=== PATIENT | male | born 1960 | race Caucasian/White ===

== ENCOUNTER 2016-12-09 07:55 | Day surgery (SDC) | payer BC ==
[2016-12-08 10:33] VITALS: BMI 25.1
[~2016-12-09 07:55] MED LIST: DEXAMETHASONE SOD PHOSPHATE 10 MG/ML 1 ML VIAL IV ONE; HEPARIN SODIUM,PORCINE 5,000 UNIT/ML 1 ML VIAL SQ ONE; HYDROmorphone 1 MG/ML 1 ML SYRINGE IVP PRN; LACTATED RINGERS 1,000 ML IV SCH; MIDAZOLAM 2 MG/2 ML VIAL IV PRN; ONDANSETRON 4 MG/2 ML VIAL IVP ONE; Pre Op ABX Message 1 EACH MISC MISCELLANE ONE; SCOPOLAMINE 1.5MG/72HR PATCH TRANSDERM ONE
[2016-12-09] MEDS ORDERED: ceFAZolin 2 GM in SODIUM CHLORIDE 0.9% 100 ML IVPB ONE (09:16)
--- NOTE | 2016-12-09 09:16 | P.GSHP ---
History of Present Illness H&P Date: 12/09/16 Chief Complaint: Rectal mass 56 yrs old male presents with rectal pain and mass. Last colonoscopy 2014- normal. No h/o chron's - Constitutional Comment: All negative Past Medical History Past Medical History: GERD/Reflux, Hyperlipidemia, Hypertension Additional Past Medical History / Comment(s): rectal skin tag History of Any Multi-Drug Resistant Organisms: None Reported Past Surgical History: Heart Catheterization With Stent Additional Past Surgical History / Comment(s): heart stents x 2 Past Anesthesia/Blood Transfusion Reactions: Previous Problems w/ Anesthesia Additional Past Anesthesia/Blood Transfusion Reaction / Comment(s): "hard time coming out of it", no hx blood transfusion Date of Last Stent Placement:: 1999 Past Psychological History: No Psychological Hx Reported Smoking Status: Current every day smoker Past Alcohol Use History: Daily Additional Past Alcohol Use History / Comment(s): started smoking approx , 1 1/2ppd,drinks 2-3 12ou cans per beer per day Past Drug Use History: None Reported - Past Family History Mother Family Medical History: No Reported History Father Family Medical History: Cancer Additional Family Medical History / Comment(s): prostate Medications and Allergies Home Medications Medication Instructions Recorded Confirmed Type Aspirin [Adult Low Dose Aspirin EC] 81 mg PO DAILY 09/02/15 12/09/16 History Labetalol [Trandate] 200 mg PO BID 09/02/15 12/09/16 History Simvastatin [Zocor] 40 mg PO HS 09/02/15 12/09/16 History Allergies Allergy/AdvReac Type Severity Reaction Status Date / Time moxifloxacin HCl Allergy Anaphylaxis Verified 12/09/16 08:11 [From Avelox] Surgical - Exam Vital Signs Temp Pulse Resp BP Pulse Ox 97.8 F 62 18 153/80 99 12/09/16 08:14 12/09/16 08:14 12/09/16 08:14 12/09/16 08:14 12/09/16 08:14 General: Patient is alert and oriented to time, place and person and cooperative with exam. He is not in acute distress. HEENT: No pallor, no icterus, no thyroid enlargement, no cervical lymphadenopathy. Chest: Bilateral equal breath sounds present. No wheezes, no crackles. Cardiovascular: Regular rate and rhythm. Abdomen: Soft, nontender, nondistended. Neurologic: Cranial nerves II-XII intact. Strength upper and lower extremities 5/5. No focal neurologic deficits. Gait is normal. Assessment and Plan (1) Rectal mass Status: Acute Plan: 1. Exam under anesthesia 2. Excision of rectal mass
[2016-12-09] MEDS ORDERED: PROPOFOL 10 MG/ML 20 ML VIAL IV ONE (09:21)
[2016-12-09] MEDS ORDERED: GLYCOPYRROLATE 0.2 MG/ML 2 ML VIAL ONE (09:21)
[2016-12-09] MEDS ORDERED: ROCURONIUM BROMIDE 10 MG/ML 10 ML VIAL IV ONE (09:21)
[2016-12-09] MEDS ORDERED: fentaNYL (PF) 50 MCG/ML 2 ML AMP ONE (09:21)
[2016-12-09] MEDS ORDERED: SUCCINYLCHOLINE CHLORIDE 100 MG/5 ML SYR IV ONE (09:21)
[2016-12-09] MEDS ORDERED: MIDAZOLAM 2 MG/2 ML VIAL ONE (09:21)
[2016-12-09] MEDS ORDERED: LIDOCAINE 1% INJ 10MG/ML (20 ML MDV) ONE (09:21)
[2016-12-09] MEDS ORDERED: NEOSTIGMINE 1 MG/ML 10 ML VIAL ONE (09:21)
[2016-12-09] MEDS: BUPIVACAINE LIPOSOME/PF 1.3% 20 ML, SODIUM CHLORIDE 0.9% 10 ML MISCELLANE ONE ×4 (09:59→10:06)
[2016-12-09] MEDS ORDERED: metroNIDAZOLE-NS PMX 500 MG in SALINE 1 100ML.BAG IVPB STA (10:38)
[2016-12-09 10:42] VITALS: TEMP 96.8
--- NOTE | 2016-12-09 10:57 | P.OP ---
Date of Procedure: 12/09/16 Preoperative Diagnosis: Rectal mass Anal skin tag Postoperative Diagnosis: Internal hemorrhoids Anal polyp Procedure(s) Performed: Exam under anesthesia Excision of anal polyp Internal hemorrhoidectomy 2 pedicle Anesthesia: JOYCE, local Surgeon: Jerrica Mulligan Condition: stable Disposition: PACU Indications for Procedure: 56 years old male presenting with a palpable mass per rectum. He had colonoscopy in 2015. No history of weight loss or loss of appetite. Occasional rectal bleeding. Informed consent obtained and patient elected to undergo exam under anesthesia and all indicated procedures. Operative Findings: Anal polyp located at 3:00. 2 internal hemorrhoid pedicles at 2 and 6 o'clock position where removed Description of Procedure: The patient was brought to the operating room and placed in supine position. General anesthesia was given as per anesthesia team. Patient was placed in prone jackknife position. The buttock cheeks were taped to expose the area. Betadine was used to prep the skin followed by application of sterile drapes. A timeout was performed to verify correct patient and correct procedure A 2 x 1 cm polyp identified at 3 o' clock which appeared to be pedunculated and arising from the anal margin which was excised after clamping the base with a hemostat. 2 size internal hemorrhoids noted at 2 and 6 o'clock position. The base of the hemorrhoidal pedicle was grasped with a hemostat and sutured using 3 -0 Vicryl. Similarly 6 o'clock hemorrhoidal pedicle was also excised and Bovie electrocautery. 30 mL of external was injected to create a local block. Patient tolerated the procedure well and was taken to post anesthesia care unit in stable condition Final Pathologic Diagnosis ANORECTAL MUCOSA: HEMORRHOIDS WITH ORGANIZING THROMBOSIS AND ANAL TAG/ FIBROEPITHELIAL POLYP. Notes It is noted that the fibroepithelial polyp demonstrates some increased basaloid proliferation and enlargement of surface epithelial cells. While the features may be reactive, the possibility of a condyloma or viral associated change cannot be completely excluded.
[2016-12-09 11:57] VITALS: RESP 16
[2016-12-09 12:15] VITALS: BP 138/76; PULSE 67
== END 2016-12-09 12:59 | disposition home or self-care (01) ==
LOC: OR 07:55
PROVIDERS: ATTEND Surgery
DX: K64.8 Other hemorrhoids (principal); K62.0 Anal polyp; K64.4 Residual hemorrhoidal skin tags; E78.00 Pure hypercholesterolemia, unspecified; I10 Essential (primary) hypertension; M94.0 Chondrocostal junction syndrome [Tietze]; N52.9 Male erectile dysfunction, unspecified; I25.10 Atherosclerotic heart disease of native coronary artery without angina pectoris; Z95.5 Presence of coronary angioplasty implant and graft; F17.200 Nicotine dependence, unspecified, uncomplicated; Z79.82 Long term (current) use of aspirin; Z79.899 Other long term (current) drug therapy; Z88.1 Allergy status to other antibiotic agents
CPT/HCPCS: 46922; 46999; J2250; J1644; J1100; J2710; J0690; J2405; J2001; J3010; J0330; J2704; 88304

== ENCOUNTER → 2017-09-28 | Outpatient (CLI) | payer BC ==
[~2017-09-28] MED LIST changes: -DEXAMETHASONE SOD PHOSPHATE 10 MG/ML 1 ML VIAL IV ONE; -HEPARIN SODIUM,PORCINE 5,000 UNIT/ML 1 ML VIAL SQ ONE; -HYDROmorphone 1 MG/ML 1 ML SYRINGE IVP PRN; -LACTATED RINGERS 1,000 ML IV SCH; -MIDAZOLAM 2 MG/2 ML VIAL IV PRN; -ONDANSETRON 4 MG/2 ML VIAL IVP ONE; -Pre Op ABX Message 1 EACH MISC MISCELLANE ONE; +REGADENOSON 0.4 MG/5 ML SYRINGE IV ONE; -SCOPOLAMINE 1.5MG/72HR PATCH TRANSDERM ONE
--- NOTE | 2017-09-28 12:29 | P.STRESS ---
- Stress Test Note Stress Test Results/Findings: Exam Performed: NM stress lexiscan cardiolite Exam Date: 09/28/17 Reason for Exam: Family hx. Height: 5 ft 10 in Weight: 74.843 kg Protocol: Sarah Scan Stage: na Duration of Exercise: na Resting Heart Rate: 69 Resting Blood Pressure: 135/72 Maximum Achieved Heart Rate: 86 Maximum Achieved Blood Pressure: 161/75 85% PMHR: na 100% PMHR: na METS: na Technologist Comment: Stress Test Results/Findings: Baseline EKG showed sinus rhythm with poor when necessary for constipation. EKGs taken during and after the Lexiscan infusion did not reveal any changes to suggest ischemia. Final impression: #1. Negative Lexiscan stress test. #2. Report on the telemetry images to be given by the radiologist
--- NOTE | 2017-09-28 12:41 | NM ---
EXAMINATION TYPE: NM stress lexiscan cardiolite DATE OF EXAM: 09/28/2017 COMPARISON: Previous exam 07/18/2012 HISTORY: Atypical chest pain TECHNIQUE: After the intravenous administration of 11 mCi Tc 99m Sestamibi - Cardiolite resting SPEC T images acquired 65 minutes post injection. The patient received 0.4mg Lexiscan, 27 mCi Tc 99m Sestamibi - Stress images obtained 50 minutes post injection FINDINGS: Review of stress and rest SPECT images demonstrates no distinct perfusion abnormality. Gated analysi s shows normal wall motion with an estimated left ventricular ejection fraction of 56%. IMPRESSION: No scintigraphic evidence for reversible ischemia.
== END | disposition home or self-care (01) ==
LOC: RADNMMAIN 07:50
PROVIDERS: ATTEND Family Medicine
DX: R07.89 Other chest pain (principal)
CPT/HCPCS: 93017; 78452; A9500; J2785

== ENCOUNTER 2018-07-03 19:31 | Emergency (ER) | payer BC ==
--- NOTE | 2018-07-03 21:08 | ED ---
General Adult HPI - General Chief complaint: Recheck/Abnormal Lab/Rx Stated complaint: post op bleeding/groin Time Seen by Provider: 07/03/18 19:46 Source: patient, family, RN notes reviewed, old records reviewed Mode of arrival: wheelchair Limitations: no limitations - History of Present Illness Initial comments: This is a 57-year-old male to the ER for evaluation of right groin bleeding bleeding from postop site. Patient had right groin catheterization to evaluate patency in [place] arteries and lower extremities are today, this procedure; hospital. No intervention was done. Patient states she was discharged home after prolonged stay, when he got home he developed bleeding from the site. Patient does not feel lightheaded dizzy or weak. He is currently on Plavix. Patient denies any foot pain or toe pain. - Related Data Home Medications Medication Instructions Recorded Confirmed Aspirin [Adult Low Dose Aspirin EC] 81 mg PO DAILY 09/02/15 07/03/18 Labetalol [Trandate] 200 mg PO BID 09/02/15 07/03/18 Simvastatin [Zocor] 40 mg PO HS 09/02/15 07/03/18 Clopidogrel Bisulfate [Plavix] 75 mg PO DAILY 07/03/18 07/03/18 traZODone HCL 150 mg PO HS 07/03/18 07/03/18 Allergies Allergy/AdvReac Type Severity Reaction Status Date / Time moxifloxacin HCl Allergy Anaphylaxis Verified 07/03/18 20:14 [From Avelox] Review of Systems ROS Statement: Those systems with pertinent positive or pertinent negative responses have been documented in the HPI. ROS Other: All systems not noted in ROS Statement are negative. Past Medical History Past Medical History: GERD/Reflux, Hyperlipidemia, Hypertension Additional Past Medical History / Comment(s): rectal skin tag History of Any Multi-Drug Resistant Organisms: None Reported Past Surgical History: Heart Catheterization With Stent Additional Past Surgical History / Comment(s): heart stents x 2 Past Anesthesia/Blood Transfusion Reactions: Previous Problems w/ Anesthesia Additional Past Anesthesia/Blood Transfusion Reaction / Comment(s): "hard time coming out of it", no hx blood transfusion Date of Last Stent Placement:: 1999 Past Psychological History: No Psychological Hx Reported Smoking Status: Current every day smoker Past Alcohol Use History: Daily Past Drug Use History: None Reported - Past Family History Mother Family Medical History: No Reported History Father Family Medical History: Cancer Additional Family Medical History / Comment(s): prostate General Exam - General Exam Comments Initial Comments: Patient does have positive cells. Posterior tibialis right lower extremity with no coldness noted, good capillary refill Limitations: no limitations General appearance: alert, in no apparent distress Head exam: Present: atraumatic, normocephalic, normal inspection Eye exam: Present: normal appearance, PERRL, EOMI. Absent: scleral icterus, conjunctival injection, periorbital swelling ENT exam: Present: normal exam, mucous membranes moist Neck exam: Present: normal inspection. Absent: tenderness, meningismus, lymphadenopathy Respiratory exam: Present: normal lung sounds bilaterally. Absent: respiratory distress, wheezes, rales, rhonchi, stridor Cardiovascular Exam: Present: regular rate, normal rhythm, normal heart sounds. Absent: systolic murmur, diastolic murmur, rubs, gallop, clicks GI/Abdominal exam: Present: soft, normal bowel sounds. Absent: distended, tenderness, guarding, rebound, rigid Extremities exam: Present: normal inspection, full ROM, normal capillary refill. Absent: tenderness, pedal edema, joint swelling, calf tenderness Back exam: Present: normal inspection Neurological exam: Present: alert, oriented X3, CN II-XII intact Psychiatric exam: Present: normal affect, normal mood Skin exam: Present: warm, dry, intact, normal color. Absent: rash Course Vital Signs 07/03/18 19:39 Temperature 98.8 F Pulse Rate 83 Respiratory 18 Rate Blood Pressure 185/73 O2 Sat by Pulse 97 Oximetry - Reevaluation(s) Reevaluation #1: 07/03/18 21:06 Site and bandage are improved, patient has no active bleeding currently Reevaluation #2: 07/03/18 21:06 Patient placed under FemoStop times one hour Reevaluation #3: 07/03/18 21:07 Site again reevaluated, no bleeding noted Medical Decision Making - Medical Decision Making 57 male postop bleeding, patient remains without bleeding can be discharged home - Radiology Data Radiology results: image reviewed Disposition Clinical Impression: Post-op bleeding Disposition: HOME SELF-CARE Condition: Good Instructions: Postoperative Bleeding (ED) Is patient prescribed a controlled substance at d/c from ED?: No Referrals: Ildefonso Gilman MD [Primary Care Provider] - 1-2 days
[2018-07-03 21:43] VITALS: BP 147/71; PULSE 66; RESP 17; TEMP 98.7
== END 2018-07-03 21:50 | disposition home or self-care (01) ==
LOC: EC 19:31
DX: I97.610 Postprocedural hemorrhage of a circulatory system organ or structure following a cardiac catheterization (principal); E78.5 Hyperlipidemia, unspecified; I10 Essential (primary) hypertension; F17.200 Nicotine dependence, unspecified, uncomplicated; Z79.02 Long term (current) use of antithrombotics/antiplatelets; Z79.82 Long term (current) use of aspirin; Z79.899 Other long term (current) drug therapy; Z88.1 Allergy status to other antibiotic agents; Z95.5 Presence of coronary angioplasty implant and graft
CPT/HCPCS: 99283

== ENCOUNTER 2019-10-28 11:00 | Day surgery (SDC) | payer BC ==
[2019-10-24 10:45] VITALS: BMI 27.3
[~2019-10-28 11:00] MED LIST changes: +LACTATED RINGERS 1,000 ML IV SCH; -REGADENOSON 0.4 MG/5 ML SYRINGE IV ONE
[2019-10-28 11:46] VITALS: TEMP 97
[2019-10-28] MEDS ORDERED: PROPOFOL 10 MG/ML 20 ML VIAL IV ONE (12:15)
--- NOTE | 2019-10-28 12:44 | P.PCN ---
Date of Procedure: 10/28/19 Description of Procedure: BRIEF HISTORY: Patient is a 59-year-old male presenting for outpatient EGD for evaluation of symptoms of epigastric abdominal pain. Patient reports being started on omeprazole therapy with some improvement initially but has been having breakthrough episodes. PROCEDURE PERFORMED: Esophagogastroduodenoscopy with biopsy. PREOPERATIVE DIAGNOSIS: Epigastric abdominal pain. ESTIMATED BLOOD LOSS: Minimal. IV sedation per anesthesia. PROCEDURE: After informed consent was obtained, the patient was brought into the endoscopy unit. IV sedation was administered by Anesthesia under continuous monitoring. Initially the Olympus GIF-190 video endoscope was inserted into the mouth. Esophagus intubated without any difficulty. It was gradually advanced into the stomach and duodenum and carefully examined. The bulb and the second part of the duodenum appeared normal, with biopsies taken. The scope at this time was withdrawn to the stomach, adequately insufflated with air, and upon careful examination, mucosa of the antrum, body, cardia and the fundus appeared normal, with some mild punctate erythema in the antrum and body suggestive of mild gastritis with biopsies taken to rule out Helicobacter pylori. The scope was then withdrawn into the esophagus. The GE junction was located at 39 cm from the incisors, with biopsies taken to rule out reflux esophagitis. The esophagus appeared normal, with mid esophageal biopsies taken. There were no erosions or ulcerations seen and the patient tolerated the procedure well. IMPRESSION: 1. Mild Gastritis and/or and body, biopsied. 2. Biopsies of the duodenum, GE junction and midesophagus.. RECOMMENDATIONS: The findings of this examination were discussed with the patient and his . Okay to resume diet. Okay to resume medications. Patient has been instructed to begin taking his omeprazole therapy 15-30 minutes before meals for maximal benefit. GERD lifestyle modifications and tobacco cessation also advised.
[2019-10-28 13:04] VITALS: BP 151/76; PULSE 64; RESP 18
== END 2019-10-28 13:19 | disposition home or self-care (01) ==
LOC: ORWHC2ENDO 11:00
PROVIDERS: ATTEND Internal Medicine
DX: K29.50 Unspecified chronic gastritis without bleeding (principal); K21.0 Gastro-esophageal reflux disease with esophagitis; I10 Essential (primary) hypertension; I25.10 Atherosclerotic heart disease of native coronary artery without angina pectoris; E78.5 Hyperlipidemia, unspecified; Z88.1 Allergy status to other antibiotic agents; Z79.82 Long term (current) use of aspirin; Z79.899 Other long term (current) drug therapy; Z95.5 Presence of coronary angioplasty implant and graft; Z72.0 Tobacco use
CPT/HCPCS: 88305; 43239; J2704

== ENCOUNTER → 2020-06-23 | Outpatient (CLI) | payer BC ==
[~2020-06-23] MED LIST changes: -LACTATED RINGERS 1,000 ML IV SCH; +REGADENOSON 0.4 MG/5 ML SYRINGE IV ONE
--- NOTE | 2020-06-23 12:45 | NM ---
EXAMINATION TYPE: NM stress lexiscan cardiolite DATE OF EXAM: 06/23/2020 COMPARISON: Nuclear medicine stress Lexiscan 09/28/2017 HISTORY: Chest pain TECHNIQUE: After the intravenous administration of 9.89 mCi Tc 99m Sestamibi - Cardiolite resting SP ECT images acquired 45 minutes post injection. The patient received 0.4mg Lexiscan, 25.6 mCi Tc 99m Sestamibi - Stress images obtained [address] injection FINDINGS: Review of stress and rest SPECT images demonstrates no distinct perfusion abnormality. Gated analysi s shows normal wall motion with an estimated left ventricular ejection fraction of 63 %. TID 1.19 IMPRESSION: 1. No scintigraphic evidence for reversible ischemia. 2. Ejection fraction 63%.
--- NOTE | 2020-06-23 13:10 | EST ---
EXERCISE STRESS AGE: 59 SEX: M HT: 5'10" WT: 175 PROTOCOL: Lexiscan Cardiolite STAGE: DURATION OF EXERCISE: HEART RATE REST: 68 BLOOD PRESSURE REST: 141/71 MAXIMUM HEART RATE ACHIEVED: 83 MAXIMUM BLOOD PRESSURE: 141/71 85% MPHR: 135 100% MPHR: 159 METS: INDICATIONS: Chest pain. CLINICAL INFORMATION: Baseline rhythm is a sinus mechanism, rate 68, normal axis and intervals. Normal echocardiogram. Baseline blood pressure 141/71 mmHg. Patient received injection of Lexiscan. Electrocardiograph monitoring revealed no evidence of diagnostic ischemic ST deviation. Cardiolite was injected per protocol. CONCLUSION: 1. Nondiagnostic electrocardiograph stress testing. 2. Nuclear images will be reported separately. MMODL / IJN: [id number] /
== END | disposition home or self-care (01) ==
LOC: RADNMMAIN 07:51
PROVIDERS: ATTEND Family Medicine
DX: R07.89 Other chest pain (principal)
CPT/HCPCS: 93017; 78452; A9500; J2785

== ENCOUNTER → 2020-06-29 | Outpatient (CLI) | payer BC ==
--- NOTE | 2020-06-30 17:54 | CTL ---
EXAMINATION TYPE: CT Low Dose Lung DATE OF EXAM ORDERED: 06/29/2020 HISTORY: History of tobacco use. Lung cancer screening CT DLP: 100.[address] CTDI: 2.7 mGy Automated exposure control for dose reduction was used. SCREENING VISIT: Yes COMPARISON: Chest radiograph 02/03/2020 TECHNIQUE: Low dose computed tomography scan was performed through the chest at 1 mm thick sections a nd reconstructed images in the coronal plane at [address] DIAGNOSTIC QUALITY: Satisfactory FINDINGS: LUNG NODULES: Present, detailed below: There are numerous 2 to 3 mm solid or semisolid pulmonary nodules scattered bilaterally. There is a c alcified granuloma of the right middle lobe. LUNGS: COPD: Severity: None Fibrosis: Severity: None Lymph nodes: None Other findings: RIGHT PLEURAL SPACE: Effusion: None Calcification: None Thickening: Mild apical Pneumothorax: None LEFT PLEURAL SPACE: Effusion: None Calcification: None Thickening: Mild apical Pneumothorax: None HEART: Heart Size: Normal Coronary calcification: Moderate Pericardial effusion: None OTHER FINDINGS: Upper abdomen: No adrenal nodule Bony thorax: Degenerative changes Supraclavicular region: Normal Other: Calcified atherosclerotic disease of the thoracic and upper abdominal aorta IMPRESSION: 1. Scattered 2 to 3 mm nodules of the bilateral lungs. 2. Calcified coronary artery disease. FOLLOW UP CT CHEST RECOMMENDATION: Annual low-dose lung CT CT LUNG RAD: Lung-Rad 2 Benign Appearance or Behavior
== END | disposition home or self-care (01) ==
LOC: RADCTMAIN 11:50
PROVIDERS: ATTEND Family Medicine
DX: Z12.2 Encounter for screening for malignant neoplasm of respiratory organs (principal); I25.10 Atherosclerotic heart disease of native coronary artery without angina pectoris; R91.8 Other nonspecific abnormal finding of lung field; F17.210 Nicotine dependence, cigarettes, uncomplicated

== ENCOUNTER → 2021-05-12 | Outpatient (CLI) | payer BC ==
[2021-05-12 16:31] LABS: HCT 37.2 % (39.0-53.0); HGB 11.5 gm/dL (13.0-17.5); Hypochromasia Moderate; MCH 24.9 pg (25.0-35.0); MCHC 30.9 g/dL (31.0-37.0); MCV 80.7 fL (80.0-100.0); Mean Platelet Volume 6.6; Platelet Count 360 k/uL (150-450); RDW 14.5 % (11.5-15.5); WBC 8.2 k/uL (3.8-10.6)
[2021-05-12 16:46] LABS: African American GFR (CKD) >90 (>60 ml/min/1.73 sqM); Blood Urea Nitrogen 20 mg/dL (9-20); Magnesium 2.1 mg/dL (1.6-2.3); Non-African American GFR(CKD) >90 (>60 ml/min/1.73 sqM)
== END | disposition home or self-care (01) ==
LOC: LABPAT 15:22
PROVIDERS: ATTEND Internal Medicine
DX: Z01.812 Encounter for preprocedural laboratory examination (principal); R07.9 Chest pain, unspecified
CPT/HCPCS: 36415; 82565; 83735; 84520; 85027

== ENCOUNTER 2021-05-19 06:53 | Inpatient (IN) | payer BC ==
[~2021-05-19 06:53] MED LIST changes: +ALPRAZolam 0.25 MG TAB PO PRN; +ALPRAZolam 0.5 MG TAB PO PRN; +NITROGLYCERIN SL TABS 0.4 MG TAB SUBLINGUAL PRN; -REGADENOSON 0.4 MG/5 ML SYRINGE IV ONE; +SODIUM CHLORIDE 0.9% 1,000 ML in EMPTY BAG 1 BAG IV ONE
[2021-05-19] MEDS ORDERED: ATORVASTATIN 80 MG TAB PO ONE (07:00)
[2021-05-19] MEDS ORDERED: HEPARIN SODIUM,PORCINE 2,500 UNIT in SODIUM CHLORIDE 0.9% 250 ML IRRIGATION PRN (07:00)
[2021-05-19] MEDS ORDERED: ASPIRIN 325 MG TAB PO ONE (07:00)
[2021-05-19] MEDS ORDERED: HEPARIN SODIUM,PORCINE 10,000 UNIT in SODIUM CHLORIDE 0.9% 1,000 ML IRRIGATION PRN (07:00)
[2021-05-19] MEDS ORDERED: ASPIRIN 81 MG ONE (07:20)
[2021-05-19] MEDS ORDERED: HEPARIN SODIUM 1,000 UN/ML (10ML VL) ONE (08:13)
[2021-05-19] MEDS ORDERED: VERAPAMIL 2.5 MG/ML 2 ML AMP ONE (08:13)
[2021-05-19] MEDS ORDERED: fentaNYL (PF) 50 MCG/ML 2 ML AMP ONE (08:13)
[2021-05-19] MEDS ORDERED: LIDOCAINE 1% INJ 10MG/ML (20 ML MDV) ONE (08:13)
[2021-05-19] MEDS ORDERED: MIDAZOLAM 2 MG/2 ML VIAL IV ONE (08:35)
[2021-05-19] MEDS ORDERED: fentaNYL (PF) 50 MCG/ML 2 ML AMP IV ONE (08:35)
[2021-05-19] MEDS ORDERED: LIDOCAINE 1% INJ 10MG/ML (20 ML MDV) SQ ONE (08:36)
[2021-05-19] MEDS ORDERED: VERAPAMIL SYRINGE (5 MG/10 ML) INTRAARTER ONE (08:38)
[2021-05-19] MEDS: HEPARIN SODIUM 1,000 UN/ML (10ML VL) IV ONE ×2 (08:41→08:55)
[2021-05-19] MEDS: NITROGLYCERIN 1000MCG/10ML SYRINGE INTRACORON ONE ×4 (09:02→09:15)
[2021-05-19] MEDS ORDERED: IOPAMIDOL-370 125ML BTL INJ ONE (09:28)
[2021-05-19] MEDS ORDERED: RX INFO: IV CONTRAST WAS GIVEN 1 EACH MISC MISCELLANE PRN (09:29)
[2021-05-19] MEDS ORDERED: SODIUM CHLORIDE 0.9% 1,000 ML IV SCH (09:30)
[2021-05-19] MEDS ORDERED: HEPARIN SODIUM 1,000 UN/ML (10ML VL) IV PRN (09:34)
[2021-05-19] MEDS ORDERED: MAG HYDROX/AL HYDROX/SIMETH 30 ML CUP PO PRN (10:22)
[2021-05-19] MEDS ORDERED: IBUPROFEN 400 MG TAB PO PRN (10:22)
[2021-05-19] MEDS ORDERED: NALOXONE 0.4 MG/ML 1 ML VIAL IV PRN (10:22)
[2021-05-19] MEDS ORDERED: ACETAMINOPHEN TAB 325 MG TAB PO PRN (10:22)
[2021-05-19] MEDS ORDERED: ALBUTEROL NEBULIZED 2.5 MG/3 ML INHALATION PRN (10:24)
[2021-05-19] MEDS ORDERED: SUCRALFATE 1 GM TAB PO PRN (10:24)
--- NOTE | 2021-05-19 10:37 | P.HPIM ---
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 Over the past several weeks the chest pain has been worsening. It radiates to the left side of the jaw. It is also accompanied by acid reflux type pain especially at night. Patient has also been having worsening claudication in both of his legs. The last time he followed up with his vascular surgeon or 3 years ago. Patient denied having any fevers, chills, nausea or vomiting. No recent illness. He just had a heart catheterization done by Dr. Momin and was found to have coronary disease at was not amenable to PCI, bypass was recommended. Patient will be admitted for bypass evaluation by cardiothoracic surgery. Review of Systems Complete review of system performed, pertinent positives per HPI, otherwise negative Past Medical History Past Medical History: Coronary Artery Disease (CAD), COPD, GERD/Reflux, Hearing Disorder / Deafness, Hyperlipidemia, Hypertension Additional Past Medical History / Comment(s): Wears hearing aids. states has john legs peripheral vascular disorder, claudication. c/o CP, shortness of breath. Edema Rt leg History of Any Multi-Drug Resistant Organisms: None Reported Past Surgical History: Heart Catheterization With Stent Additional Past Surgical History / Comment(s): heart stents x2. Rectal/hemorrhoid. Colonoscopies, EGD Past Anesthesia/Blood Transfusion Reactions: Previous Problems w/ Anesthesia Additional Past Anesthesia/Blood Transfusion Reaction / Comment(s): Takes long time to awaken, "hard time coming out of it;" no hx blood transfusion Date of Last Stent Placement:: 1999 Smoking Status: Current every day smoker - Past Family History Mother Family Medical History: No Reported History Father Family Medical History: Cancer Additional Family Medical History / Comment(s): prostate Medications and Allergies Home Medications Medication Instructions Recorded Confirmed Type Aspirin [Adult Low Dose Aspirin EC] 81 mg PO DAILY 09/02/15 05/19/21 History Labetalol [Trandate] 200 mg PO BID 09/02/15 05/19/21 History Omeprazole 40 mg PO DAILY 10/24/19 05/19/21 History Sucralfate [Carafate] 1 gm PO QID PRN 10/25/19 05/19/21 History Albuterol Inhaler [Ventolin Hfa 1 puff INHALATION RT-QID PRN 05/17/21 05/17/21 History Inhaler] Atorvastatin Calcium [Lipitor] 80 mg PO HS 05/17/21 05/19/21 History Calcium Carbonate [Tums] 500 - 1,000 mg PO QID PRN 05/17/21 05/19/21 History Isosorbide Mononitrate ER [Imdur] 30 mg PO DAILY 05/17/21 05/19/21 History Nicotine Polacrilex [Nicotine Gum] 4 mg BUCCAL DIRECTED PRN 05/17/21 05/19/21 History Rivaroxaban [Xarelto] 2.5 mg PO BID 05/17/21 05/17/21 History Allergies Allergy/AdvReac Type Severity Reaction Status Date / Time moxifloxacin HCl Allergy Anaphylaxis Verified 05/17/21 17:53 [From Avelox] Physical Exam Vitals: Vital Signs Temp Pulse Resp BP BP Pulse Ox 05/19/21 07:29 98.2 F 71 16 161/72 155/75 98 Intake and Output 05/18/21 05/19/21 05/19/21 22:59 06:59 14:59 Intake Total 850 Balance 850 Intake: IV 850 Other: Weight 76 kg Constitutional: No acute distress, conversant, pleasant Eyes:Anicteric sclerae, moist conjunctiva, no lid-lag, PERRLA, ENMT: Oropharynx clear, no erythema, exudates Neck: Supple, FROM, no masses, or JVD, No carotid bruits, No thyromegaly Lungs: Clear to auscultation, Clear to percussion, Normal respiratory effort, no accessory muscle use Cardiovascular: Heart regular in rate and rhythm, No murmurs, gallops, or rubs, No peripheral edema Abdominal: Soft, Nontender, no guarding, rebound or rigidity, Normoactive bowel sounds, No hepatomegaly, No splenomegaly, No palpable mass Skin: Normal temperature, tone, texture, turgor, no induration, No subcutaneous nodules, No rash, lesions, No ulcers Extremities: No digital cyanosis, No clubbing, Pedal pulses intact and symmetrical, Radial pulses intact and symmetrical, No calf tenderness Psychiatric: Alert and oriented to person, place and time, appropriate affect, intact judgement Neuro: Muscles Strength 5/5 in all 4 extremities, Sensation to light touch grossly present throughout, Cranial nerves II-XII grossly intact, no focal sensory deficits Results CBC & Chem 7: 05/19/21 07:00 Assessment and Plan Plan: Unstable angina, severe coronary artery disease Management per cardiology Continue aspirin, heparin drips Statin changed to Lipitor 80 mg daily. Cardiothoracic surgery evaluation for CABG Essential hypertension Hyperlipidemia GERD All stable Continue home meds Admitted to inpatient expected length of stay more than 2 midnights.
[2021-05-19] MEDS ORDERED: MD COMMUNICATION TO PHARMACY 1 EACH MISC PO ONE ×3 (11:31)
[2021-05-19] MEDS: HEPARIN SOD,PORK IN 0.45% NACL 25,000 UNIT in 0.45% NACL 1 250ML.BAG IV SCH (11:43)
--- NOTE | 2021-05-19 12:28 | P.GSCN ---
History of Present Illness Consult date: 05/19/21 Reason for Consult: Coronary artery disease Requesting physician: Devaughn Momin History of present illness: This is an active 60-year-old gentleman who follows on an outpatient basis with Dr. Gilman. He has a previous medical history of coronary artery disease with previous PCI in 2005 to the circumflex coronary artery, intermittent claudication with PAD on Xarelto, hypertension, hyperlipidemia, GERD, current tobacco dependence, and family history of coronary artery disease. The patient has had complaints of chest pain with exertion, relieved with rest, with radiation to his left arm and jaw. He states the symptoms have been occurring over the last few weeks, but had increased recently. [facility] and was seen by Dr. Momin. Transthoracic echocardiogram was completed in the office which demonstrated normal left ventricular systolic function with EF 60-65%, normal diastolic function, no wall motion abnormalities, mild mitral regurgitation with mild mitral annular calcification, and mild tricuspid regurgitation. Carotid ultrasound was also completed which demonstrated 50-79% bilateral internal carotid artery stenosis. The patient was recommended to undergo heart catheterization which was completed today and which demonstrated left main to disease 60% confirmed with PAGE, proximal LAD stenosis 70%, INR 0.8, mid LAD stenosis 80%, INR 0.67, proximal circumflex stenosis 85% with 80% obtuse marginal artery stenosis, and complete occlusion of nondominant right coronary artery. 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 The patient was to be admitted for further evaluation and treatment with consultation placed to Dr. Carrillo from cardiothoracic surgery for revascularization recommendations. Review of Systems Review of systems was completed and was negative except as noted - Cardiovascular Reports as per HPI, Reports chest pain - Musculoskeletal Musculoskeleta Comment(s): Intermittent claudication Reports as per HPI Past Medical History Past Medical History: Coronary Artery Disease (CAD), COPD, GERD/Reflux, Hearing Disorder / Deafness, Hyperlipidemia, Hypertension, Vascular Disorder Additional Past Medical History / Comment(s): Wears hearing aids. states has john legs peripheral vascular disorder, claudication. c/o CP, shortness of breath. Edema Rt leg; bilateral internal carotid artery stenosis 50-79% History of Any Multi-Drug Resistant Organisms: None Reported Past Surgical History: Heart Catheterization With Stent Additional Past Surgical History / Comment(s): heart stents x2. Recta l/hemorrhoid. Colonoscopies, EGD Past Anesthesia/Blood Transfusion Reactions: Previous Problems w/ Anesthesia Additional Past Anesthesia/Blood Transfusion Reaction / Comm: Takes long time to awaken, "hard time coming out of it;" no hx blood transfusion Date of Last Stent Placement:: 1999 Past Psychological History: No Psychological Hx Reported Smoking Status: Current every day smoker Past Alcohol Use History: Rare Past Drug Use History: None Reported - Past Family History Mother Family Medical History: No Reported History Father Family Medical History: Cancer Additional Family Medical History / Comment(s): prostate Medications and Allergies Home Medications Medication Instructions Recorded Confirmed Type Aspirin [Adult Low Dose Aspirin EC] 81 mg PO DAILY 09/02/15 05/19/21 History Labetalol [Trandate] 200 mg PO BID 09/02/15 05/19/21 History Omeprazole 40 mg PO DAILY 10/24/19 05/19/21 History Sucralfate [Carafate] 1 gm PO QID PRN 10/25/19 05/19/21 History Albuterol Inhaler [Ventolin Hfa 1 puff INHALATION RT-QID PRN 05/17/21 05/17/21 History Inhaler] Atorvastatin Calcium [Lipitor] 80 mg PO HS 05/17/21 05/19/21 History Calcium Carbonate [Tums] 500 - 1,000 mg PO QID PRN 05/17/21 05/19/21 History Isosorbide Mononitrate ER [Imdur] 30 mg PO DAILY 05/17/21 05/19/21 History Nicotine Polacrilex [Nicotine Gum] 4 mg BUCCAL DIRECTED PRN 05/17/21 05/19/21 History Rivaroxaban [Xarelto] 2.5 mg PO BID 05/17/21 05/17/21 History Allergies Allergy/AdvReac Type Severity Reaction Status Date / Time moxifloxacin HCl Allergy Anaphylaxis Verified 05/17/21 17:53 [From Avelox] Surgical - Exam Vital Signs Temp Pulse Resp BP Pulse Ox 98.2 F 71 16 161/72 98 05/19/21 07:29 05/19/21 07:29 05/19/21 07:29 05/19/21 07:29 05/19/21 07:29 CONSTITUTIONAL: Awake and alert, appears comfortable, cooperative, well- developed, well-nourished, no pain, no acute distress EYES: Pupils equal, round, reactive to light, normal ocular movement ENT: Moist mucous membranes without oral lesions present NECK: No masses, no bruits, trachea midline RESPIRATORY: Lungs sounds clear to auscultation bilaterally. Respirations even, nonlabored. Currently on room air with oxygen saturation 98%. Strong productive cough. No chest wall deformities. No clubbing or cyanosis present CARDIOVASCULAR: S1, S2 present. Regular rate and rhythm, sinus rhythm on telemetry. Palpable peripheral pulses bilaterally, diminished DP/PT pulses but good femoral pulses. No edema present. No calf pain or tenderness noted. No significant lower extremity varicosities noted. Left radial Watson's test less than 8 seconds by pulse oximeter. GASTROINTESTINAL: Abdomen soft, nontender, nondistended without masses or organomegaly noted. There is no rebound or guarding present. Active bowel sounds present 4 quadrants. GENITOURINARY: Deferred INTEGUMENTARY: Skin is warm and dry with evidence of good perfusion. NEUROLOGIC: Cranial nerves II through XII intact, normal coordination, no obvious motor or sensory deficits, speech is normal MUSKULOSKELETAL: Able to move all extremities, strength equal bilaterally, normal posture PSYCHIATRIC: Alert and oriented to person place and time, appropriate affect, intact judgment and insight Results - Labs 05/19/21 07:00 Diabetes panel 05/19/21 Range/Units 07:00 Potassium 4.1 (3.5-5.1) mmol/L Pituitary panel 05/19/21 Range/Units 07:00 Potassium 4.1 (3.5-5.1) mmol/L Adrenal panel 05/19/21 Range/Units 07:00 Potassium 4.1 (3.5-5.1) mmol/L - Imaging Additional studies: Heart catheterization films reviewed in detail with Dr. Carrillo Assessment and Plan Assessment: 1. Symptomatic coronary artery disease, previous PCI in 2005 to the circumflex coronary artery 2. Intermittent claudication with PAD on Xarelto 3. Hypertension 4. Hyperlipidemia 5. GERD 6. Current tobacco dependence 7. Family history of coronary artery disease 8. Bilateral internal carotid artery stenosis 50-79% Plan: The patient was seen and examined in the extended stay unit with Dr. Carrillo. Chart/diagnostics were reviewed in detail. The usual course of coronary artery bypass surgery was discussed in detail with the patient and his , risks and benefits were reviewed, all questions were answered, and the patient consents to surgery. Preoperative testing was initiated. Recommend continuing to maximize medical therapy with aspirin, statin, beta gayle therapy. Continue to hold his overall to. Risks and modification discussed including smoking cessation. Once all preoperative testing has been completed we will calculate STS risk score. Our plan is for off-pump coronary artery bypass surgery with left internal mammary artery, left radial artery harvest, endoscopic vein harvest, to be completed by Dr. Carrillo this admission, timing to be determined but potentially tomorrow 05/20/2021 pending the outcome of his preoperative testing. Medical management of other comorbidities per primary care service. More recommendations to follow. Thank you Dr. Momin for this consult. We look forward to working with you in the care of your patient. Time with Patient: Greater than 30
--- NOTE | 2021-05-19 13:48 | P.CARDCATH ---
Description of Procedure: PROCEDURES PERFORMED: Left heart catheterization, bilateral coronary angiography, iFR LAD, iFR OM1, IVUS left main INDICATION: Unstable angina, history of CAD s/p PCI HISTORY: Patient is a pleasant 60 year old male with history of carotid artery stenosis, PAD with claudication, tobacco abuse, CAD with prior remote PCI 2005. He had previously been seeing Dr Bray. He presented recently outpt secondary to new episodes of chest pain radiating to his jaw and down arm associated with diaphroesis, worse with exertion over the last 6-8 weeks. He has also been having episodes at rest and at night concerning for unstable angina. A 2D echo was performed in the office which showed normal LV function without significant valvular disease. Therefore a heart catheterization was recommended. CONSENT:I have discussed the risks, benefits and alternative therapies for the above-mentioned procedure and for both sedation/analgesia as well as necessary blood product administration, if indicated, as they pertain to this patient. The patient has indicated understanding and acceptance of the risks and procedures discussed. PROCEDURE: After the risks, benefits and alternatives of the above mentioned procedure explained in detail with the patient, informed consent was obtained. Patient was taken to the catheterization lab and prepped and draped in usual fashion. 1% lidocaine was used to anesthetize the right radial artery. A 6- Thai sheath was placed in the right radial artery using modified Seldinger technique. Left coronary angiography was performed with a 5-Thai JL 3.5 catheter and right coronary angiography was performed with a 5-Thai JR5 catheter in various views. A 5-Thai FR5 catheter was inserted into the left ventricle and pressure measurements were obtained. The decision was made to iFR the LAD and OM1. Heparin was given. A CLS 3.0 guide was used to engage the left main. An iFR wire was advanced, normalized. This was then advanced into the OM1 branch without difficulty and atraumatically. iFR was abnormal at 0.66. Patient developed chest pain with only wiring of the lesion, which was improved with nitro. Next the iFR wire was advanced into the proximal LAD and iFR was abnormal at 0.8. It was advanced more distal past the mid LAD lesion and was abnormal at 0.67. Patient again had brief chest pain with wiring and improved with nitro. There was also left main disease with a hazy appearing short left main and therefore IVUS was attempted however the IVUS catheter was not easily advanced past the mid left main and therefore only proximal left main was imaged however showed a minimal luminal area of 6.8mm2 and a left main 60% stenosis. The right radial sheath was removed and a TR band was placed with hemostasis achieved. The patient tolerated the procedure well and was chest pain free after nitro was given. Patient was transported back to the post catheterization holding area in stable condition. Conscious Sedation: Patient was monitored under the direct supervision of vision of myself for conscious sedation using Versed and fentanyl for a total duration of 46 minutes HEMODYNAMICS: Ao: 143/78 LV: 144/7, LVEDP 23 SELECTIVE CORONARY ARTERIOGRAPHY: LEFT MAIN: The left main is a large caliber, short vessel which bifurcates into the LAD and circumflex. There is a hazy 60% left main stenosis with minimal luminal area of 6.8mm2 by IVUS (although IVUS catheter unable to be advanced into the mid to distal left main) LEFT ANTERIOR DESCENDING CORONARY ARTERY: LAD is a large caliber vessel which wraps around to the apex. There is diffuse 40-50% LAD stenosis with a more focal 75% proximal LAD stenosis. There is a mid LAD 80% stenosis and otherwise mild disease. LEFT CIRCUMFLEX CORONARY ARTERY: Left circumflex is a moderate to large caliber vessel which is the dominant vessel and gives off the PDA. Proximally the circumflex gives off a moderate caliber OM branch with a Valdovinos 1,1,1 85% stenosis which involves the ostium of OM1. There is a proximal circumflex stent with a mid 80% instent stenosis. There is otherwise mild disease. RIGHT CORONARY ARTERY: The right coronary artery is a small caliber vessel which is nondominant and appears to only give off an RV branch. There is 100% RCA stenosis. FINAL IMPRESSION: 1. CAD as described above including 100% stenosis nondominant RCA, left main 60%, proximal LAD 75%, mid LAD 80%, proximal circumflex 85%, mid circumflex 80% instent stenosis. iFR verified abnormal LAD and OM1 and IVUS catheter unable to be advanced through entire left main with minimal luminal area 6.8mm2 of what was imaged. 2. Mildly elevated left sided filling pressures 3. Unstable angina with increasing symptoms, now at rest PLAN: 1. Aggressive risk factor modification per most recent ACC/AHA guidelines. 2. Given multivessel CAD we will have cardiothoracic surgery evaluate for possible CABG. 3. He is having unstable symptoms and therefore we will admit patient and continue heparin drip.
[2021-05-19 14:11] LABS: Appearance,Urine Clear (Clear); Bilirubin,Urine Negative (Negative); Blood,Urine Negative (Negative); Color,Urine Light Yellow; Glucose,Urine (UA) Negative (Negative); Ketones,Urine Negative (Negative); Leukocyte Esterase,Urine Negative (Negative); Nitrite,Urine Negative (Negative); PH, Urine 5.5 (5.0-8.0); Protein,Urine Negative (Negative); Urobilinogen,Urine <2.0 mg/dL (<2.0)
--- NOTE | 2021-05-19 14:12 | XR ---
EXAMINATION TYPE: XR chest 2V DATE OF EXAM: 05/19/2021 COMPARISON: CT chest 06/29/2020, chest x-ray 02/02/2014 HISTORY: Preop cardiac surgery TECHNIQUE: Frontal and lateral views of the chest are obtained. FINDINGS: There is no focal air space opacity, pleural effusion, or pneumothorax seen. The cardiac silhouette size is within normal limits. The osseous structures are intact. IMPRESSION: No acute cardiopulmonary process.
--- NOTE | 2021-05-19 15:02 | P.CNPUL ---
History of Present Illness Consult date: 05/19/21 Requesting physician: Ermias Carrillo Reason for consult: other (Critical care management) Chief complaint: Coronary artery disease History of present illness: This is a 60-year-old male patient who follows with Dr. Gilman as his primary care provider. He has a history of coronary artery disease with previous stent placement in 2005, peripheral arterial disease and lower extremities, hypert ension, hyperlipidemia, gastroesophageal reflux disease, chronic and ongoing tobacco dependence of approximately 30 years. He had recently been the having symptoms of chest discomfort and jaw pain. He presented here electively for cardiac catheterization and was found to have significant multivessel coronary artery disease. The plan is for possible coronary artery bypass surgery tomorrow. He is seen today on the selective care unit. He is awake and alert in no acute distress. Denies any shortness of breath, cough or congestion. He is not been on any maintenance inhalers. FEV1 value is found to be 35% of predicted. Chest x-ray reveals no acute pulmonary process. Maintaining good O2 saturations in the upper 90s on room air. He's been afebrile. Hemodynamically stable. He is educated regarding the use of the incentive spirometer. Nebulized treatments will be ordered. Review of Systems REVIEW OF SYSTEMS: CONSTITUTIONAL: Denies any recent significant weight loss or weight gain. EYES: Denies change in vision. EARS, NOSE, MOUTH, THROAT: Denies headaches, denies sore throat. CARDIOVASCULAR: Indigestion type chest pain, jaw pain, no palpitations or s yncopal episodes. RESPIRATORY: Denies shortness of breath, cough, congestion or hemoptysis. GASTROINTESTINAL: Denies change in appetite, denies abdominal pain GENITOURINARY: Denies hematuria, denies infections. MUSKULOSKELETAL: Denies pain, denies swelling. INTEGUMENTARY: Denies rash, denies eczema. NEUROLOGICAL: Denies recent memory loss, no recent seizure activity. PSYCHIATRIC: Denies anxiety, denies depression. HEMATOLOGIC/LYMPHATIC: Denies anemia, denies enlarged lymph nodes. Past Medical History Past Medical History: Coronary Artery Disease (CAD), COPD, GERD/Reflux, Hearing Disorder / Deafness, Hyperlipidemia, Hypertension, Vascular Disorder Additional Past Medical History / Comment(s): Wears hearing aids. states has john legs peripheral vascular disorder, claudication. c/o CP, shortness of breath. Edema Rt leg; bilateral internal carotid artery stenosis 50-79% History of Any Multi-Drug Resistant Organisms: None Reported Past Surgical History: Heart Catheterization With Stent Additional Past Surgical History / Comment(s): heart stents x2. Rectal/hemorrhoid. Colonoscopies, EGD Past Anesthesia/Blood Transfusion Reactions: Previous Problems w/ Anesthesia Additional Past Anesthesia/Blood Transfusion Reaction / Comment(s): Takes long time to awaken, "hard time coming out of it;" no hx blood transfusion Date of Last Stent Placement:: 1999 Past Psychological History: No Psychological Hx Reported Smoking Status: Current every day smoker Past Alcohol Use History: Rare Past Drug Use History: None Reported - Past Family History Mother Family Medical History: No Reported History Father Family Medical History: Cancer Additional Family Medical History / Comment(s): prostate Medications and Allergies Home Medications Medication Instructions Recorded Confirmed Type Aspirin [Adult Low Dose Aspirin EC] 81 mg PO DAILY 09/02/15 05/19/21 History Labetalol [Trandate] 200 mg PO BID 09/02/15 05/19/21 History Omeprazole 40 mg PO DAILY 10/24/19 05/19/21 History Sucralfate [Carafate] 1 gm PO QID PRN 10/25/19 05/19/21 History Albuterol Inhaler [Ventolin Hfa 1 puff INHALATION RT-QID PRN 05/17/21 05/17/21 History Inhaler] Atorvastatin Calcium [Lipitor] 80 mg PO HS 05/17/21 05/19/21 History Calcium Carbonate [Tums] 500 - 1,000 mg PO QID PRN 05/17/21 05/19/21 History Isosorbide Mononitrate ER [Imdur] 30 mg PO DAILY 05/17/21 05/19/21 History Nicotine Polacrilex [Nicotine Gum] 4 mg BUCCAL DIRECTED PRN 05/17/21 05/19/21 History Rivaroxaban [Xarelto] 2.5 mg PO BID 05/17/21 05/17/21 History Allergies Allergy/AdvReac Type Severity Reaction Status Date / Time moxifloxacin HCl Allergy Anaphylaxis Verified 05/17/21 17:53 [From Avelox] Physical Exam Vitals: Vital Signs Temp Pulse Resp BP BP Pulse Ox 05/19/21 10:40 68 16 149/67 98 05/19/21 07:29 98.2 F 71 16 161/72 155/75 98 Intake and Output 05/18/21 05/19/21 05/19/21 22:59 06:59 14:59 Intake Total 850 Balance 850 Intake: IV 850 Other: # Voids 1 Weight 76 kg GENERAL EXAM: Alert, very pleasant 60-year-old gentleman, on room air, currently comfortable in no apparent distress. HEAD: Normocephalic. EYES: Normal reaction of pupils, equal size. NOSE: Clear with pink turbinates. THROAT: No erythema or exudates. NECK: No masses, no JVD. CHEST: No chest wall deformity. LUNGS: Equal air entry with no crackles, wheeze, rhonchi or dullness. CVS: S1 and S2 normal with no audible murmur, regular rhythm. ABDOMEN: No hepatosplenomegaly, normal bowel sounds, no guarding or rigidity. SPINE: No scoliosis or deformity SKIN: No rashes CENTRAL NERVOUS SYSTEM: No focal deficits, tone is normal in all 4 extremities. EXTREMITIES: There is no peripheral edema. No clubbing, no cyanosis. Peripheral pulses are intact. Results - Laboratory Findings CBC and BMP: 05/19/21 07:00 - Diagnostic Findings Chest x-ray: image reviewed Assessment and Plan Assessment: 1 Unstable angina with significant multivessel coronary artery disease 2 History of coronary artery disease with previous stent placement 2005 3 Chronic and ongoing tobacco dependence of greater than 30 years 4 Chronic obstructive pulmonary disease with FEV1 value is 35% of predicted 4 Peripheral arterial disease with intermittent claudication. Maintained on Xarelto 5 Hypertension 6 Hyperlipidemia Plan: The patient was seen and evaluated by Dr. Chong Educated regarding using the incentive spirometer Educated regarding the importance of complete smoking cessation Initiate bronchodilators We will continue to follow and make further recommendations based on his clinical status I, the cosigning physician, performed a history & physical examination of the patient. Lungs sounds are clear. Maintaining good O2 saturations in the 90s on room air. I discussed the assessment and plan of care with my nurse practition er, Michelle Mccoy. I attest to the above consultation as dictated by her. Time with Patient: Greater than 30
[2021-05-19 15:39] LABS: Basophils # (A) 0.1 k/uL (0-0.2); Basophils % (A) 1 %; Eosinophils # (A) 0.2 k/uL (0-0.7); Eosinophils % (A) 1 %; HCT 36.9 % (39.0-53.0); HGB 11.1 gm/dL (13.0-17.5); Hypochromasia Marked; Lymphocytes # (A) 1.6 k/uL (1.0-4.8); Lymphocytes % (A) 14 %; MCH 25.5 pg (25.0-35.0); MCV 85.1 fL (80.0-100.0); Mean Platelet Volume 6.9; Monocytes # (A) 0.6 k/uL (0-1.0); Monocytes % (A) 5 %; Neutrophils # (A) 8.6 k/uL (1.3-7.7); Neutrophils % (A) 77 %; Platelet Count 364 k/uL (150-450); RBC 4.34 m/uL (4.30-5.90); RDW 14.7 % (11.5-15.5); WBC 11.2 k/uL (3.8-10.6)
[2021-05-19 15:41] LABS: ALT 29 U/L (4-49); AST 32 U/L (17-59); African American GFR (CKD) >90 (>60 ml/min/1.73 sqM); Albumin 3.8 g/dL (3.5-5.0); Alkaline Phosphatase 75 U/L (38-126); Anion Gap 5 mmol/L; Blood Urea Nitrogen 15 mg/dL (9-20); Calcium 8.6 mg/dL (8.4-10.2); Carbon Dioxide 25 mmol/L (22-30); Chloride 108 mmol/L (98-107); Glucose 90 mg/dL (74-99); Magnesium 1.9 mg/dL (1.6-2.3); Non-African American GFR(CKD) >90 (>60 ml/min/1.73 sqM); Potassium 4.5 mmol/L (3.5-5.1); Sodium 138 mmol/L (137-145); Total Bilirubin 0.2 mg/dL (0.2-1.3); Total Protein 6.3 g/dL (6.3-8.2)
[2021-05-19 15:43] LABS: Partial Thromboplastin Time 35.2 sec (22.0-30.0); Prothrombin Time 10.3 sec (9.0-12.0)
[2021-05-19] MEDS ORDERED: LORazepam 2 MG/ML INJ IV PRN ×3 (16:00)
[2021-05-19] MEDS: THIAMINE 100 MG TAB PO SCH (16:22)
[2021-05-19] MEDS: FOLIC ACID 1 MG TAB PO SCH (16:22)
[2021-05-19] MEDS: MULTIVITAMINS, THERA 1 EACH TAB PO SCH (16:22)
[2021-05-19] MEDS: MUPIROCIN 2% OINT 22 GM TUBE NASAL SCH (20:46)
[2021-05-19] MEDS ORDERED: LABETALOL 100 MG TAB PO SCH (21:00)
[2021-05-19] MEDS ORDERED: RIVAROXABAN 2.5 MG TABLET PO SCH (21:00)
[2021-05-20] MEDS ORDERED: PROTAMINE SULFATE 250 MG in EMPTY BAG 1 BAG IV ONE (05:00)
[2021-05-20] MEDS ORDERED: HEPARIN SODIUM,PORCINE 5,000 UNIT in SODIUM CHLORIDE 0.9% 500 ML 500 ML IV ONE (05:00)
[2021-05-20] MEDS ORDERED: MAGNESIUM SULFATE SYG 4.06 MEQ/ML SYRINGE IV ONE (05:00)
[2021-05-20] MEDS ORDERED: NOREPINEPHRINE 4 MG in SODIUM CHLORIDE 0.9% 250 ML IV ONE (05:00)
[2021-05-20] MEDS ORDERED: NITROGLYCERIN-D5W PMX 50 MG in DEXTROSE/WATER 1 250ML.BAG IV ONE (05:00)
[2021-05-20] MEDS ORDERED: SODIUM BICARB 8.4% 50 ML SYR (1 MEQ/ML) IV ONE (05:00)
[2021-05-20] MEDS ORDERED: CHLORHEXIDINE GLUCONATE 15 ML CUP MUCOUS MEM ONE (05:00)
[2021-05-20] MEDS ORDERED: MANNITOL 25% 12.5 GM/50 ML VIAL IV ONE ×2 (05:00)
[2021-05-20] MEDS ORDERED: METOPROLOL TARTRATE 12.5 MG TAB PO ONE (05:00)
[2021-05-20] MEDS ORDERED: NITROGLYCERIN-D5W PMX 25 MG/250 ML BTL IV ONE (05:00)
[2021-05-20] MEDS ORDERED: CALCIUM CHLORIDE 100 MG/ML 10 ML SYRINGE IVP ONE (05:00)
[2021-05-20] MEDS ORDERED: INSULIN REGULAR 100 UNIT in SODIUM CHLORIDE 0.9% 100 ML IV ONE (05:00)
[2021-05-20] MEDS ORDERED: PHENYLEPHRINE 40 MG in SODIUM CHLORIDE 0.9% 250 ML IV ONE (05:00)
[2021-05-20] MEDS ORDERED: CLEVIDIPINE BUTYRATE 25 MG in EMPTY BAG 1 BAG IV ONE (05:00)
[2021-05-20] MEDS ORDERED: HEPARIN SODIUM 1,000 UN/ML (10ML VL) IV ONE (05:00)
[2021-05-20] MEDS ORDERED: ceFAZolin 1,000 MG in SODIUM CHLORIDE 0.9% IRRIGATIO 1,000 ML IRRIGATION ONE (05:00)
[2021-05-20] MEDS ORDERED: LACTATED RINGERS 1,000 ML IV SCH (05:00)
[2021-05-20] MEDS ORDERED: PAPAVERINE 360 MG in SODIUM CHLORIDE 0.9% 90 ML IV ONE ×2 (05:00→09:41)
[2021-05-20] MEDS ORDERED: PHENYLEPHRINE 10 MG/ML VIAL IV ONE (05:00)
[2021-05-20] MEDS ORDERED: ALBUMIN HUMAN 25% 50 ML in EMPTY BAG 1 BAG IVPB ONE (05:00)
[2021-05-20] MEDS ORDERED: PROTAMINE SULFATE 10 MG/ML 25 ML VIAL IV ONE (05:00)
[2021-05-20] MEDS ORDERED: ALBUMIN HUMAN 5% 500 ML in EMPTY BAG 1 BAG IVPB ONE ×6 (05:00)
[2021-05-20] MEDS ORDERED: ATORVASTATIN 10 MG TAB PO ONE (05:00)
[2021-05-20] MEDS ORDERED: TRANEXAMIC ACID 2,000 MG in SODIUM CHLORIDE 0.9% 80 ML IV ONE (05:00)
[2021-05-20] MEDS ORDERED: ASPIRIN 325 MG TAB PO ONE (05:00)
[2021-05-20] MEDS ORDERED: CARDIOPLEGIC SOLN (K+ 16 MEQ/L 1,000 ML with SOD BICARB SYR 8.4% (1 MEQ/ML) 20 ML, LIDO... PERFUSION NR ×3 (05:00)
[2021-05-20] MEDS ORDERED: DILTIAZEM 125 MG in SODIUM CHLORIDE 0.9% 100 ML IV ONE (05:00)
[2021-05-20] MEDS: THIAMINE 100 MG TAB PO SCH ×2 (05:19→17:50)
[2021-05-20] MEDS: MULTIVITAMINS, THERA 1 EACH TAB PO SCH (05:20)
[2021-05-20] MEDS: FOLIC ACID 1 MG TAB PO SCH (05:21)
[2021-05-20] MEDS: MUPIROCIN 2% OINT 22 GM TUBE NASAL SCH ×2 (05:21→20:21)
[2021-05-20] MEDS ORDERED: PANTOPRAZOLE 40 MG TABLET PO SCH (07:30)
[2021-05-20] MEDS ORDERED: NITROGLYCERIN-D5W PMX 50 MG/250 ML BOTTLE IV ONE (08:21)
[2021-05-20] MEDS ORDERED: PROPOFOL 10 MG/ML 20 ML VIAL IV ONE (08:21)
[2021-05-20] MEDS ORDERED: PROTAMINE SULFATE 10 MG/ML 5 ML VIAL IV ONE (08:21)
[2021-05-20] MEDS ORDERED: HEPARIN SODIUM,PORCINE 10,000 UNIT/ML 1 ML VIAL ONE (08:21)
[2021-05-20] MEDS ORDERED: SODIUM CHLORIDE 0.9% IRRIG 1,000 ML BTL IRRIGATION ONE (08:21)
[2021-05-20] MEDS ORDERED: fentaNYL (PF) 50 MCG/ML 50 ML VIAL ONE (08:21)
[2021-05-20] MEDS ORDERED: ALBUMIN HUMAN 5% (25gm) 500 ML VIAL IVPB ONE (08:21)
[2021-05-20] MEDS ORDERED: VECURONIUM 10 MG VIAL IV ONE (08:21)
[2021-05-20] MEDS ORDERED: MIDAZOLAM 2 MG/2 ML VIAL ONE (08:21)
[2021-05-20 08:25] LABS: Prothrombin Time 10.7 sec (9.0-12.0)
[2021-05-20] MEDS ORDERED: ISOSORBIDE MONONITRATE ER 30 MG TAB.ER.24H PO SCH (09:00)
[2021-05-20 09:07] LABS: ABG Base Excess 0.7 mmol/L; ABG Glucose Whole Blood 93 mg/dL (75-99); ABG HCO3 26 mmol/L (21-25); ABG Hematocrit 30 % (34.0-46.0); ABG Ionized Calcium 4.8 mg/dL (4.5-5.3); ABG Lactic Acid Whole Blood 0.5 mmol/L (0.5-1.6); ABG Oxygen Saturation 99.9 % (94-97); ABG PCO2 41 mmHg (35-45); ABG PO2 225 mmHg (83-108); ABG Potassium Whole Blood 3.8 mmol/L (3.4-4.5); ABG Sodium Whole Blood 141 mmol/L (135-146); ABG TCO2 27 mmol/L (19-24)
--- NOTE | 2021-05-20 09:14 | P.ANPRN ---
Procedure Note - Anesthesia - Invasive Line Right Arterial Line Time Out Performed: Yes Date of Procedure: 05/20/21 Time of Procedure: 07:30 Location of Patient: Phase I Preparation: Sterile Prep, Sterile Dressing Arterial Line Location: Radial Ultrasound Used: No Narrative: Right radial arterial line placed by [employer] under sterile conditions Right Central Line Time Out Performed: Yes Date of Procedure: 05/20/21 Time of Procedure: 07:40 Location of Patient: PreOp Preparation: Sterile Prep, Sterile Dressing Ultrasound Used: Yes Purpose - Visualization and Identification of Vasculature: Yes Needle Guage: 18 Image Stored and Saved: Yes Narrative: Central line placement per sterile protocol utilized. Right [place] Time Out Performed: Yes Date of Procedure: 05/20/21 Time of Procedure: 07:50 Location of Patient: Phase I Preparation: Sterile Prep, Sterile Dressing Ultrasound Used: No Narrative: SWAN advanced until PA waveform. Secured @43cm
[2021-05-20] MEDS ORDERED: SODIUM CHLORIDE 0.9% 500 ML 500 ML with HEPARIN SODIUM,PORCINE 5,000 UNIT IV ONE ×2 (09:41)
[2021-05-20] MEDS ORDERED: ceFAZolin 1,000 MG in SODIUM CHLORIDE 0.9% 1,000 ML IRRIGATION ONE (09:41)
[2021-05-20 10:48] LABS: ABG Base Excess 0.1 mmol/L; ABG Glucose Whole Blood 98 mg/dL (75-99); ABG HCO3 26 mmol/L (21-25); ABG Hematocrit 28 % (34.0-46.0); ABG Ionized Calcium 4.6 mg/dL (4.5-5.3); ABG Lactic Acid Whole Blood 0.8 mmol/L (0.5-1.6); ABG PCO2 44 mmHg (35-45); ABG PH 7.37 (7.35-7.45); ABG PO2 260 mmHg (83-108); ABG Potassium Whole Blood 4.2 mmol/L (3.4-4.5); ABG Sodium Whole Blood 139 mmol/L (135-146); ABG TCO2 27 mmol/L (19-24)
[2021-05-20 11:20] LABS: ABG Base Excess -0.3 mmol/L; ABG Glucose Whole Blood 96 mg/dL (75-99); ABG HCO3 26 mmol/L (21-25); ABG Hematocrit 26 % (34.0-46.0); ABG Ionized Calcium 4.6 mg/dL (4.5-5.3); ABG Lactic Acid Whole Blood 0.4 mmol/L (0.5-1.6); ABG Oxygen Saturation 99.9 % (94-97); ABG PCO2 47 mmHg (35-45); ABG PH 7.34 (7.35-7.45); ABG PO2 270 mmHg (83-108); ABG Sodium Whole Blood 141 mmol/L (135-146); ABG TCO2 27 mmol/L (19-24)
[2021-05-20 11:51] LABS: ABG Glucose Whole Blood 95 mg/dL (75-99); ABG HCO3 25 mmol/L (21-25); ABG Hematocrit 25 % (34.0-46.0); ABG Ionized Calcium 4.5 mg/dL (4.5-5.3); ABG Lactic Acid Whole Blood 0.5 mmol/L (0.5-1.6); ABG Oxygen Saturation 99.9 % (94-97); ABG PCO2 48 mmHg (35-45); ABG PH 7.33 (7.35-7.45); ABG PO2 276 mmHg (83-108); ABG Sodium Whole Blood 141 mmol/L (135-146); ABG TCO2 26 mmol/L (19-24)
[2021-05-20 12:27] LABS: ABG Base Excess -0.4 mmol/L; ABG Glucose Whole Blood 96 mg/dL (75-99); ABG HCO3 25 mmol/L (21-25); ABG Ionized Calcium 4.6 mg/dL (4.5-5.3); ABG Lactic Acid Whole Blood 0.8 mmol/L (0.5-1.6); ABG Oxygen Saturation 99.7 % (94-97); ABG PCO2 47 mmHg (35-45); ABG PH 7.34 (7.35-7.45); ABG PO2 258 mmHg (83-108); ABG Sodium Whole Blood 140 mmol/L (135-146); ABG TCO2 27 mmol/L (19-24)
[2021-05-20 12:57] LABS: ABG Base Excess -1.2 mmol/L; ABG Glucose Whole Blood 95 mg/dL (75-99); ABG HCO3 24 mmol/L (21-25); ABG Ionized Calcium 4.5 mg/dL (4.5-5.3); ABG Lactic Acid Whole Blood 0.8 mmol/L (0.5-1.6); ABG Oxygen Saturation 99.5 % (94-97); ABG PCO2 45 mmHg (35-45); ABG PH 7.35 (7.35-7.45); ABG PO2 180 mmHg (83-108); ABG Potassium Whole Blood 3.7 mmol/L (3.4-4.5); ABG Sodium Whole Blood 141 mmol/L (135-146); ABG TCO2 26 mmol/L (19-24)
[2021-05-20 13:17] LABS: ABG Hematocrit 24 % (34.0-46.0)
[2021-05-20 13:17] LABS: ABG Hematocrit 22 % (34.0-46.0)
--- NOTE | 2021-05-20 13:22 | P.ANPRN ---
Procedure Note - Anesthesia - DOUGLAS Intraop Pre Bypass DOUGLAS Intraop - Anesthesia Indication: CAD Date of Procedure: 05/20/21 Pre-operative Diagnosis: CAD Post-operative Diagnosis: same Surgeon: Ermias Carrillo Left Ventricle: EF 65% Ejection Fraction: Normal Regional Wall Motion Abnormalities: None Left Ventricle Hypertrophy: No R. Ventricle Function: Normal Anatomy: Trileaflet Aortic Stenosis: None Aortic Regurgitation: None Mitral Stenosis: None Mitral Regurgitation: Trace Tricuspid Stenosis: None Tricuspid Regurgitation: None Pulmonic Stenosis: None Pulmonic Regurgitation: None R. Atrial Dilation: No R. Atrial PFO: No L. Atrial Dilation: No Aortic Dissection: No Plural Effusion: None - DOUGLAS Intraop Post Bypass DOUGLAS Intraop Post Bypass Procedure Performed: off pump CABG Ejection Fraction: Normal Regional Wall Motion Abnormalities: None R. Ventricle Function: Normal Aortic Valve: Unchanged Mitral Valve: Unchanged Tricuspid: Unchanged Pulmonic: Unchanged Aortic Dissection: No
[2021-05-20] MEDS ORDERED: CLEVIDIPINE BUTYRATE 25 MG in EMPTY BAG 1 BAG IV SCH (13:33)
[2021-05-20] MEDS ORDERED: Phosphorus Replacement Protoco 1 EACH MISC MISCELLANE PRN (13:33)
[2021-05-20] MEDS ORDERED: CALCIUM GLUCONATE 2 GM in SODIUM CHLORIDE 0.9% 100 ML IVPB PRN (13:33)
[2021-05-20] MEDS ORDERED: NITROGLYCERIN-D5W PMX 50 MG in DEXTROSE/WATER 1 250ML.BAG IV SCH (13:33)
[2021-05-20] MEDS ORDERED: DEXTROSE 5% IN WATER 100 ML with AMIODARONE 150 MG IV PRN (13:33)
[2021-05-20] MEDS ORDERED: DILTIAZEM 125 MG in SODIUM CHLORIDE 0.9% 100 ML IV SCH (13:33)
[2021-05-20] MEDS ORDERED: IPRATROPIUM-ALBUTEROL 3 ML NEB INHALATION PRN (13:33)
[2021-05-20] MEDS ORDERED: AMIODARONE 360 MG in DEXTROSE 5% IN WATER 200 ML IV PRN ×2 (13:33)
[2021-05-20] MEDS ORDERED: INSULIN REGULAR 100 UNIT in SODIUM CHLORIDE 0.9% 100 ML IV SCH (13:33)
[2021-05-20] MEDS ORDERED: BENZOCAINE/MENTHOL LOZENG 1 EACH LOZENGE MUCOUS MEM PRN (13:33)
[2021-05-20] MEDS ORDERED: METOCLOPRAMIDE 5 MG/ML 2 ML VIAL IVP PRN (13:33)
[2021-05-20] MEDS ORDERED: Potassium Replacement Protocol 1 EACH MISC MISCELLANE PRN (13:33)
[2021-05-20] MEDS ORDERED: ONDANSETRON 4 MG/2 ML VIAL IVP PRN (13:33)
[2021-05-20] MEDS ORDERED: DEXMEDETOMIDINE/0.9% NACL(PMX) 400 MCG in EMPTY BAG 1 BAG IV SCH (13:33)
[2021-05-20] MEDS ORDERED: Magnesium Replacement Protocol 1 EACH MISC MISCELLANE PRN (13:33)
[2021-05-20] MEDS: LACTATED RINGERS 1,000 ML IV SCH (13:34)
[2021-05-20 13:47] LABS: Glucose,Whole Blood 100 mg/dL (75-99)
[2021-05-20 14:02] LABS: Basophils % (A) 0 %; Eosinophils # (A) 0.1 k/uL (0-0.7); Eosinophils % (A) 2 %; HCT 27.4 % (39.0-53.0); Hypochromasia Moderate; Lymphocytes # (A) 1.6 k/uL (1.0-4.8); Lymphocytes % (A) 16 %; MCH 25.4 pg (25.0-35.0); MCHC 30.7 g/dL (31.0-37.0); MCV 82.7 fL (80.0-100.0); Mean Platelet Volume 8.3; Monocytes # (A) 0.3 k/uL (0-1.0); Monocytes % (A) 3 %; Neutrophils # (A) 7.8 k/uL (1.3-7.7); Neutrophils % (A) 79 %; Platelet Count 215 k/uL (150-450); RBC 3.32 m/uL (4.30-5.90); RDW 14.6 % (11.5-15.5); WBC 9.9 k/uL (3.8-10.6)
[2021-05-20 14:03] LABS: INR 1.1 (<1.2); Partial Thromboplastin Time 25.7 sec (22.0-30.0); Prothrombin Time 11.5 sec (9.0-12.0)
--- NOTE | 2021-05-20 14:04 | P.OP ---
Date of Procedure: 05/20/21 Preoperative Diagnosis: Coronary artery disease Postoperative Diagnosis: Same Procedure(s) Performed: Off-pump CABG 3 with STOCKTON to LAD STOCKTON to OM and saphenous vein graft to posterior lateral branch with endovascular vein harvest and ligation of the left atrial appendage with a 40 mm AtriCure clip Implants: 40 mm AtriCure clip Anesthesia: JOYCE Surgeon: Ermias Carrillo Furniture And Bedding Inspector #1: Judi Jimenez Furniture And Bedding Inspector #2: Dragan Lares Estimated Blood Loss (ml): 100 IV fluids (ml): 2,000 Urine output (ml): 500 Pathology: none sent Condition: stable Disposition: ICU Indications for Procedure: 60-year-old male presents with anginal symptomatology. He has known peripheral vascular disease. Cardiac catheterization demonstrated complex left main coronary artery stenosis. Right coronary was nondominant. The dominant circumflex had mid circumflex disease. Stenosis and high OM and also proximal LAD stenosis. Surgical revascularization was recommended and urgent surgery was scheduled. Operative Findings: DOUGLAS demonstrated normal ventricular function and normal valvular function. Saphenous vein was harvested from the left lower extremity and was quality but somewhat small in caliber. Bilateral mammary arteries were harvested and were excellent conduit. The LAD was an intramyocardial vessel which was discovered lying fairly deep in the epicardial fat the junction of the proximal and middle third. Was grafted here. Soft 2 mm vessel. The obtuse marginal was large vessel which was grafted on the lateral wall. It was also a 2 mm vessel of good quality. 3 distal circumflex branches all were found on the inferior wall. PDA was very small vessel. Second posterior lateral branch was also a small vessel and the first posterior lateral branch was a larger vessel. This was vessel that was grafted it was a 1.5 mm vessel with some diffuse disease present. Postoperative DOUGLAS did not show any difference from preop. Description of Procedure: The patient was brought to the operating room, placed supine on the operating table, anesthetized and intubated. Monitoring lines had been placed in preoperative holding. The anterior torso and left upper extremity left lower extremity were sterilely prepped and draped. Greater saphenous vein was harvested from the left thigh and upper portion of the lower leg. It was a reasonable conduit. Simultaneous sternotomy was performed a left hemisternum retracted upwards and the left internal mammary artery harvested on a vascular pedicle left intact on its origin from the subclavian and divided distally. There was an excellent conduit. Was decided at this point to not take the radial artery and instead to use the right internal mammary artery as the mammary artery was an excellent conduit. The left arm was tucked at the patient's side and right hemisternum was retracted upwards. The right internal mammary artery was harvested on a vascularized pedicle left intact on its origin from clavian and divided distally. Bilateral pleural spaces were drained with 32-Argentine chest tubes. Standard sternal retractor was placed and the perica rdium was opened in the midline. The heart was exposed with pericardial sutures. The renal was tunneled into the pericardial space high near the superior aspect of the ascending aorta. The STOCKTON was tunneled into the pericardial space laterally. Sected stabilization was used during distal anastomosis. The JAYSON to the LAD was performed first. The LAD was an intramyocardial vessel and not surface until near the apex. We traced the second diagonal branch back to the LAD and dissected proximal to this. Here the LAD was a 2 mm vessel of soft quality. After exposing the LAD was opened and bl ood flow control with a 2 mm flow through. Patient had been systemically heparinized and a CTs were maintained greater than 250 during grafting. STOCKTON to LAD anastomosis was performed with running 8-0 Prolene suture. Completion anastomosis flow through was removed effectively probing the proximal and distal portion of the anastomosis. Suture was tied with good result and hemostasis and the inflow open. FELICITY pedicle was tacked surrounding epicardium with 6-0 silk sutures and also tacked the superior recess of the pericardium over the ascending aorta with a 6-0 Prolene suture. Lateral wall of the heart was exposed. The left atrial appendage was ligated with a 40 mm AtriCure. The obtuse marginal was stabilized in its midportion and opened. The flow was controlled with a 2 mm flow through. As a good quality vessel. The left internal mammary artery was anastomosed in an inside fashion with running 8-0 Prolene suture. On completion anastomosis flow through was removed effectively probing the proximal and distal portion of the anastomosis. Suture was tied with good result and hemostasis. Inferior wall was exposed. The 3 branches of the distal circumflex were evaluated. The most proximal one was the largest and appeared to be graftable the 2 more distal ones were smaller and not felt to be as good targets. We opened the first posterior lateral branch and controlled blood flow with a 1.5 mm flow through was a 1.5 mm vessel there was mild diffuse disease present in the vessel. Saphenous vein was anastomosed in an inside fashion with running 7-0 Prolene suture. On completion of the anastomosis the flow through was removed effectively probing the proximal and distal portion of the anastomosis. Suture was tied with good result and hemostasis. Good backbleeding was noted the vein graft. Vein was cut to appropriate length to reach the ascending aorta. The ascending aorta was palpated. There was heavy calcific plaque posteriorly. There was also anterior calcific plaque at the takeoff of the innominate artery. Was decided not to clamp the aorta and a heartstring device was deployed in the mid ascending aorta and a soft spot. This proceeded without event. Proximal anastomosis was then constructed with running 5-0 Prolene suture. Completion of the anastomosis the heartstring device was removed and the suture tied. Hemostasis was obtained. Inflow was open. Distal anastomoses appeared hemostatic. Heparin was now reversed with protamine. Good hemostasis obtained throughout. The mediastinum was drained with a 36-Argentine chest tube. Chest was irrigated with antibiotic solution and after assuring good hemostasis the sternum was closed with 8 sternal wires. Fascia was closed with 0 Ethibond. Subcutaneous and subcuticular layers in the leg and chest were closed with layers of Vicryl suture. Patient was transferred to us ICU in stable condition.
[2021-05-20 14:05] LABS: HGB 8.4 gm/dL (13.0-17.5)
[2021-05-20 14:10] LABS: ABG Base Excess -0.9 mmol/L; ABG HCO3 25 mmol/L (21-25); ABG Oxygen Saturation 99.7 % (94-97); ABG PCO2 48 mmHg (35-45); ABG PH 7.33 (7.35-7.45); ABG PO2 >400 mmHg (83-108); ABG TCO2 27 mmol/L (19-24); Allen Test Performed? Yes
--- NOTE | 2021-05-20 14:13 | XR ---
EXAMINATION TYPE: XR chest 1V portable DATE OF EXAM: 05/20/2021 COMPARISON: Chest x-ray dated 05/19/2021 HISTORY: Postop cardiac surgery TECHNIQUE: Single frontal view of the chest is obtained. FINDINGS: Patient is post median sternotomy and left atrial appendage clip placement. Endotracheal t ube, NG tube, left chest tube, right jugular central venous catheter, right chest tube and mediastina l drain are in place. Patient is rotated. No sizable pneumothorax or pleural effusion. Cardiac medias tinal silhouette likely stable accounting for differences in technique. The aorta is dense. Suspect s ome minimal atelectatic change left mid lung. IMPRESSION: Satisfactory postoperative chest x-ray.
[2021-05-20 14:20] LABS: Glucose,Whole Blood 97 mg/dL (75-99)
[2021-05-20 14:38] LABS: ALT 19 U/L (4-49); AST 25 U/L (17-59); African American GFR (CKD) >90 (>60 ml/min/1.73 sqM); Albumin 2.8 g/dL (3.5-5.0); Alkaline Phosphatase 46 U/L (38-126); Anion Gap 4 mmol/L; Blood Urea Nitrogen 8 mg/dL (9-20); Calcium 7.9 mg/dL (8.4-10.2); Carbon Dioxide 24 mmol/L (22-30); Chloride 110 mmol/L (98-107); Glucose 94 mg/dL (74-99); Magnesium 1.7 mg/dL (1.6-2.3); Non-African American GFR(CKD) >90 (>60 ml/min/1.73 sqM); Sodium 138 mmol/L (137-145); Total Bilirubin 0.2 mg/dL (0.2-1.3); Total Protein 4.7 g/dL (6.3-8.2)
--- NOTE | 2021-05-20 14:46 | P.PN ---
Subjective Progress Note Date: 05/20/21 Principal diagnosis: coronary artery disease, status post coronary artery bypass grafting 3 This is a 60-year-old male patient who follows with Dr. Gilman as his primary care provider. He has a history of coronary artery disease with previous stent placement in 2005, peripheral arterial disease and lower extremities, hypertension, hyperlipidemia, gastroesophageal reflux disease, chronic and ongoing tobacco dependence of approximately 30 years. He had recently been the having symptoms of chest discomfort and jaw pain. He presented here electively for cardiac catheterization and was found to have significant multivessel coronary artery disease. The plan is for possible coronary artery bypass surgery tomorrow. He is seen today on the selective care unit. He is awake and alert in no acute distress. Denies any shortness of breath, cough or congestion. He is not been on any maintenance inhalers. FEV1 value is found to be 35% of predicted. Chest x-ray reveals no acute pulmonary process. Maintaining good O2 saturations in the upper 90s on room air. He's been afebrile. Hemodynamically stable. He is educated regarding the use of the incentive spirometer. Nebulized treatments will be ordered. The patient is seen today 05/20/2021 in the intensive care unit shortly after returning from surgery. He received a off-pump CABG 3 with STOCKTON to LAD, OM and saphenous vein graft to the posterior lateral branch with endovascular vein harvest and ligation of the left atrial appendage. He remains intubated on the mechanical ventilator at assist control mode rate of 12, tidal volume 500, FiO2 100% and a PEEP of 5. Arterial blood gases revealed a PaO2 of 400, pCO2 48, pH 7.33. Peak pressure 23, plateau pressure 17. He is under a Rubina hugger. He has a mediastinal, right and left chest tubes in place. He remains on nitroglycerin at 5 mcg/m, propofol at 20 mcg/kg/m, lactated Ringer's at 50 MLS per hour. His potassium is being replaced. Cardiac output 5.0. Cardiac index 2.6. PA pressure 20/10. He is currently in normal sinus rhythm. Chest x-ray reveals no sizable pneumothorax or pleural effusion. White count 9.9. Hemoglobin 8.4. sodium 138. Potassium 4.0. Creatinine 0.56. AST 25. ALT 19. Glucose 100. Remains on bronchodilators. Heparin for DVT prophylaxis. Objective - Vital Signs Vital signs: Vital Signs Temp 97.0 F L 05/20/21 06:09 Pulse 60 05/20/21 06:09 Resp 16 05/20/21 06:09 BP 179/78 05/20/21 06:09 Pulse Ox 96 05/20/21 06:09 Intake & Output 05/19/21 05/20/21 05/20/21 18:59 06:59 18:59 Intake Total 1500 243.442 116.5 Output Total 1560 Balance 1500 243.442 -1443.5 Weight 76 kg Intake: IV 850 100 116.5 0.9 SODIUM CHLORIDE 13 PRESSURE BAG CARDIAC OUTPUT 20 Lactated Ringers 1,000 ml 75 @ 50 mls/hr IV .Q20H [facility] Rx#:[id number] Nitroglycerin-D5w Pmx 50 2.5 mg In Dextrose/Water 1 250ml.bag @ 5 MCG/MIN 1.5 mls/hr IV .Q24H [facility] Rx#: [id number] Intake, IV Titration 170 143.442 Amount Heparin Sod,Pork in 0.45% 20 143.442 NaCl 25,000 unit In 0.45 % NaCl 1 250ml.bag @ 12 UNITS/KG/HR 9.12 mls/hr IV .Q24H [facility] Rx#: [id number] Sodium Chloride 0.9% 1, 150 000 ml @ 75 mls/hr IV . [id number] [facility] Rx#:[id number] Oral 480 Output: Chest Tube Drainage 50 Chest Tube Left Lateral 5 Chest Chest Tube Mediastinal 40 Chest Tube Right Lateral 5 Chest Urine 760 Estimated Blood Loss 750 Other: # Voids 1 2 - Exam GENERAL EXAM: Intubated, sedated 60-year-old gentleman, appears comfortable in no apparent distress. HEAD: Normocephalic. EYES: Sluggish reaction of pupils, equal size. NOSE: Clear with pink turbinates. THROAT: Endotracheal and gastric tube secured in place. No erythema or exudates. NECK: [place] catheter in place. No masses, no JVD. CHEST: Sternal dressing dry and intact. Heart hugger in place. Mediastinal, right and left chest tubes in place. LUNGS: Equal air entry with no crackles, wheeze, rhonchi or dullness. CVS: S1 and S2 normal with no audible murmur, regular rhythm. ABDOMEN: No hepatosplenomegaly, normal bowel sounds, no guarding or rigidity. SPINE: No scoliosis or deformity SKIN: No rashes CENTRAL NERVOUS SYSTEM: Sedated. No focal deficits, tone is normal in all 4 extremities. EXTREMITIES: SCDs in place. There is no peripheral edema. No clubbing, no cyanosis. Peripheral pulses are intact. - Labs CBC & Chem 7: 05/20/21 13:30 05/19/21 15:14 Labs: Abnormal Lab Results - Last 24 Hours (Table) 05/19/21 05/19/21 05/19/21 Range/Units 15:14 15:14 15:14 WBC 11.2 H (3.8-10.6) k/uL RBC (4.30-5.90) m/uL Hgb 11.1 L (13.0-17.5) gm/dL Hct 36.9 L (39.0-53.0) % MCHC 30.0 L (31.0-37.0) g/dL Neutrophils # 8.6 H (1.3-7.7) k/uL APTT 35.2 H (22.0-30.0) sec ABG pH (7.35-7.45) ABG pCO2 (35-45) mmHg ABG pO2 (83-108) mmHg ABG HCO3 (21-25) mmol/L ABG Total CO2 (19-24) mmol/L ABG O2 Saturation (94-97) % ABG Hematocrit (34.0-46.0) % ABG Lactic Acid (0.5-1.6) mmol/L Hemoglobin (13.0-17.5) gm/dL Chloride 108 H (98-107) mmol/L POC Glucose (mg/dL) (75-99) mg/dL Crossmatch 05/19/21 05/19/21 05/20/21 Range/Units 16:07 17:44 00:30 WBC (3.8-10.6) k/uL RBC (4.30-5.90) m/uL Hgb (13.0-17.5) gm/dL Hct (39.0-53.0) % MCHC (31.0-37.0) g/dL Neutrophils # (1.3-7.7) k/uL APTT 34.1 H 86.4 H (22.0-30.0) sec ABG pH (7.35-7.45) ABG pCO2 (35-45) mmHg ABG pO2 (83-108) mmHg ABG HCO3 (21-25) mmol/L ABG Total CO2 (19-24) mmol/L ABG O2 Saturation (94-97) % ABG Hematocrit (34.0-46.0) % ABG Lactic Acid (0.5-1.6) mmol/L Hemoglobin (13.0-17.5) gm/dL Chloride (98-107) mmol/L POC Glucose (mg/dL) (75-99) mg/dL Crossmatch See Detail 05/20/21 05/20/21 05/20/21 Range/Units 09:10 10:31 11:23 WBC (3.8-10.6) k/uL RBC (4.30-5.90) m/uL Hgb (13.0-17.5) gm/dL Hct (39.0-53.0) % MCHC (31.0-37.0) g/dL Neutrophils # (1.3-7.7) k/uL APTT (22.0-30.0) sec ABG pH 7.34 L (7.35-7.45) ABG pCO2 47 H (35-45) mmHg ABG pO2 225 H 260 H 270 H (83-108) mmHg ABG HCO3 26 H 26 H 26 H (21-25) mmol/L ABG Total CO2 27 H 27 H 27 H (19-24) mmol/L ABG O2 Saturation 99.9 H 100.0 H 99.9 H (94-97) % ABG Hematocrit 30 L 28 L 26 L (34.0-46.0) % ABG Lactic Acid 0.4 L (0.5-1.6) mmol/L Hemoglobin 9.7 L 9.1 L 8.5 L (13.0-17.5) gm/dL Chloride (98-107) mmol/L POC Glucose (mg/dL) (75-99) mg/dL Crossmatch 05/20/21 05/20/21 05/20/21 Range/Units 11:58 12:30 13:00 WBC (3.8-10.6) k/uL RBC (4.30-5.90) m/uL Hgb (13.0-17.5) gm/dL Hct (39.0-53.0) % MCHC (31.0-37.0) g/dL Neutrophils # (1.3-7.7) k/uL APTT (22.0-30.0) sec ABG pH 7.33 L 7.34 L (7.35-7.45) ABG pCO2 48 H 47 H (35-45) mmHg ABG pO2 276 H 258 H 180 H (83-108) mmHg ABG HCO3 (21-25) mmol/L ABG Total CO2 26 H 27 H 26 H (19-24) mmol/L ABG O2 Saturation 99.9 H 99.7 H 99.5 H (94-97) % ABG Hematocrit 25 L 22 L 24 L (34.0-46.0) % ABG Lactic Acid (0.5-1.6) mmol/L Hemoglobin 8.0 L 7.3 L 7.9 L (13.0-17.5) gm/dL Chloride (98-107) mmol/L POC Glucose (mg/dL) (75-99) mg/dL Crossmatch 05/20/21 05/20/21 05/20/21 Range/Units 13:30 13:45 14:07 WBC (3.8-10.6) k/uL RBC 3.32 L (4.30-5.90) m/uL Hgb 8.4 L D (13.0-17.5) gm/dL Hct 27.4 L (39.0-53.0) % MCHC 30.7 L (31.0-37.0) g/dL Neutrophils # 7.8 H (1.3-7.7) k/uL APTT (22.0-30.0) sec ABG pH 7.33 L (7.35-7.45) ABG pCO2 48 H (35-45) mmHg ABG pO2 >400 H (83-108) mmHg ABG HCO3 (21-25) mmol/L ABG Total CO2 27 H (19-24) mmol/L ABG O2 Saturation 99.7 H (94-97) % ABG Hematocrit (34.0-46.0) % ABG Lactic Acid (0.5-1.6) mmol/L Hemoglobin (13.0-17.5) gm/dL Chloride (98-107) mmol/L POC Glucose (mg/dL) 100 H (75-99) mg/dL Crossmatch Microbiology - Last 24 Hours (Table) 05/19/21 17:18 Nasal Screen MRSA/MSSA - Preliminary Nasopharyngeal Swab Assessment and Plan Assessment: 1 Unstable angina with significant multivessel coronary artery disease. Status post off-pump CABG 3 with STOCKTON to LAD, OM and saphenous vein graft to the posterior lateral branch with endovascular vein harvest and ligation of the left atrial appendage. Post op day #0. 2 History of coronary artery disease with previous stent placement 2005 3 Chronic and ongoing tobacco dependence of greater than 30 years 4 Chronic obstructive pulmonary disease with FEV1 value is 35% of predicted 4 Peripheral arterial disease with intermittent claudication. Maintained on Xarelto 5 Hypertension 6 Hyperlipidemia Plan: The patient was seen and evaluated by Dr. Chong Chest x-ray, ABGs and labs reviewed Decrease FiO2 to 40% Increase respiratory rate to 16 Attempt to extubate within the 6 hour protocol Continue bronchodilators We will continue to follow and make further recommendations based on his clinical status Critical care time 38 minutes I, the cosigning physician, performed a history & physical examination of the patient. Lungs sounds are clear. Maintaining good O2 saturations in the 90s on 40% FiO2 via the mechanical ventilator. I discussed the assessment and plan of care with my nurse practitioner, Michelle Mccoy. I attest to the above note as dictated by her.
[2021-05-20] MEDS: HEPARIN SOD,PORK IN 0.45% NACL 25,000 UNIT in 0.45% NACL 1 250ML.BAG IV SCH (15:03)
[2021-05-20 15:15] LABS: Glucose,Whole Blood 106 mg/dL (75-99)
[2021-05-20] MEDS ORDERED: IPRATROPIUM-ALBUTEROL 3 ML NEB INHALATION SCH (16:00)
[2021-05-20 16:05] LABS: Glucose,Whole Blood 116 mg/dL (75-99)
--- NOTE | 2021-05-20 16:11 | CONS ---
CONSULTATION DATE OF SERVICE : 05/19/21 I have seen, examined, and agree with the midlevel's findings. MMODL / IJN: [id number] / -00
--- NOTE | 2021-05-20 16:39 | P.PN ---
Subjective Progress Note Date: 05/20/21 Principal diagnosis: Unstable angina Patient is s/p CABG 3 with STOCKTON to LAD, OM and saphenous vein graft to the posterior lateral branch with endovascular vein harvest and ligation of the left atrial appendage. He remains intubated on the mechanical ventilator in the ICU. Objective - Vital Signs Vital signs: Vital Signs Temp 34.5 F L 05/20/21 13:45 Pulse 81 05/20/21 16:00 Resp 17 05/20/21 16:00 BP 179/78 05/20/21 06:09 Pulse Ox 95 05/20/21 16:00 Intake & Output 05/19/21 05/20/21 05/20/21 18:59 06:59 18:59 Intake Total 1500 243.442 332.843 Output Total 1980 Balance 1500 243.442 -1647.157 Weight 76 kg Intake: IV 850 100 317.5 0.9 SODIUM CHLORIDE 31 PRESSURE BAG CARDIAC OUTPUT 50 Lactated Ringers 1,000 ml 175 @ 50 mls/hr IV .Q20H [facility] Rx#:[id number] Nitroglycerin-D5w Pmx 50 5.5 mg In Dextrose/Water 1 250ml.bag @ 5 MCG/MIN 1.5 mls/hr IV .Q24H [facility] Rx#: [id number] ceFAZolin 2 gm In Sodium 50 Chloride 0.9% 50 ml @ 100 mls/hr IVPB ONCE [facility] Rx# :[id number] Intake, IV Titration 170 143.442 15.343 Amount Clevidipine Butyrate 25 7.667 mg In Empty Bag 1 bag @ 1 MG/HR 2 mls/hr IV .Q24H [facility] Rx#:[id number] Heparin Sod,Pork in 0.45% 20 143.442 NaCl 25,000 unit In 0.45 % NaCl 1 250ml.bag @ 12 UNITS/KG/HR 9.12 mls/hr IV .Q24H [facility] Rx#: [id number] Sodium Chloride 0.9% 1, 150 000 ml @ 75 mls/hr IV . [id number] [facility] Rx#:[id number] propofoL 1,000 mg In 7.676 Empty Bag 1 bag @ Titrate IV .Q0M [facility] Rx#: [id number] Oral 480 Output: Chest Tube Drainage 190 Chest Tube Left Lateral 20 Chest Chest Tube Mediastinal 155 Chest Tube Right Lateral 15 Chest Urine 1040 Estimated Blood Loss 750 Other: Voiding Method Indwelling Catheter # Voids 1 2 ABP, PAP, CO, CI - Last Documented Arterial Blood Pressure 112/48 Pulmonary Artery Pressure 33/18 Cardiac Output 7.3 Cardiac Index 3.8 - Exam Constitutional: intubated, sedated. Eyes:Anicteric sclerae, moist conjunctiva, no lid-lag, PERRLA, ENMT: Oropharynx clear, no erythema, exudates Neck: Supple, FROM, no masses, or JVD, No carotid bruits, No thyromegaly Lungs: Clear to auscultation, Clear to percussion, Normal respiratory effort, no accessory muscle use Cardiovascular: Heart regular in rate and rhythm, No murmurs, gallops, or rubs, No peripheral edema Abdominal: Soft, Nontender, no guarding, rebound or rigidity, Normoactive bowel sounds, No hepatomegaly, No splenomegaly, No palpable mass Skin: Normal temperature, tone, texture, turgor, no induration, No subcutaneous nodules, No rash, lesions, No ulcers Extremities: No digital cyanosis, No clubbing, Pedal pulses intact and symmetrical, Radial pulses intact and symmetrical, No calf tenderness Neuro: sedated - Labs CBC & Chem 7: 05/20/21 13:30 05/20/21 13:30 Labs: Abnormal Lab Results - Last 24 Hours (Table) 05/19/21 05/19/21 05/20/21 Range/Units 16:07 17:44 00:30 RBC (4.30-5.90) m/uL Hgb (13.0-17.5) gm/dL Hct (39.0-53.0) % MCHC (31.0-37.0) g/dL Neutrophils # (1.3-7.7) k/uL APTT 34.1 H 86.4 H (22.0-30.0) sec ABG pH (7.35-7.45) ABG pCO2 (35-45) mmHg ABG pO2 (83-108) mmHg ABG HCO3 (21-25) mmol/L ABG Total CO2 (19-24) mmol/L ABG O2 Saturation (94-97) % ABG Hematocrit (34.0-46.0) % ABG Lactic Acid (0.5-1.6) mmol/L Hemoglobin (13.0-17.5) gm/dL Chloride (98-107) mmol/L BUN (9-20) mg/dL Creatinine (0.66-1.25) mg/dL POC Glucose (mg/dL) (75-99) mg/dL Calcium (8.4-10.2) mg/dL Total Protein (6.3-8.2) g/dL Albumin (3.5-5.0) g/dL Crossmatch See Detail 05/20/21 05/20/21 05/20/21 Range/Units 09:10 10:31 11:23 RBC (4.30-5.90) m/uL Hgb (13.0-17.5) gm/dL Hct (39.0-53.0) % MCHC (31.0-37.0) g/dL Neutrophils # (1.3-7.7) k/uL APTT (22.0-30.0) sec ABG pH 7.34 L (7.35-7.45) ABG pCO2 47 H (35-45) mmHg ABG pO2 225 H 260 H 270 H (83-108) mmHg ABG HCO3 26 H 26 H 26 H (21-25) mmol/L ABG Total CO2 27 H 27 H 27 H (19-24) mmol/L ABG O2 Saturation 99.9 H 100.0 H 99.9 H (94-97) % ABG Hematocrit 30 L 28 L 26 L (34.0-46.0) % ABG Lactic Acid 0.4 L (0.5-1.6) mmol/L Hemoglobin 9.7 L 9.1 L 8.5 L (13.0-17.5) gm/dL Chloride (98-107) mmol/L BUN (9-20) mg/dL Creatinine (0.66-1.25) mg/dL POC Glucose (mg/dL) (75-99) mg/dL Calcium (8.4-10.2) mg/dL Total Protein (6.3-8.2) g/dL Albumin (3.5-5.0) g/dL Crossmatch 05/20/21 05/20/21 05/20/21 Range/Units 11:58 12:30 13:00 RBC (4.30-5.90) m/uL Hgb (13.0-17.5) gm/dL Hct (39.0-53.0) % MCHC (31.0-37.0) g/dL Neutrophils # (1.3-7.7) k/uL APTT (22.0-30.0) sec ABG pH 7.33 L 7.34 L (7.35-7.45) ABG pCO2 48 H 47 H (35-45) mmHg ABG pO2 276 H 258 H 180 H (83-108) mmHg ABG HCO3 (21-25) mmol/L ABG Total CO2 26 H 27 H 26 H (19-24) mmol/L ABG O2 Saturation 99.9 H 99.7 H 99.5 H (94-97) % ABG Hematocrit 25 L 22 L 24 L (34.0-46.0) % ABG Lactic Acid (0.5-1.6) mmol/L Hemoglobin 8.0 L 7.3 L 7.9 L (13.0-17.5) gm/dL Chloride (98-107) mmol/L BUN (9-20) mg/dL Creatinine (0.66-1.25) mg/dL POC Glucose (mg/dL) (75-99) mg/dL Calcium (8.4-10.2) mg/dL Total Protein (6.3-8.2) g/dL Albumin (3.5-5.0) g/dL Crossmatch 05/20/21 05/20/21 05/20/21 Range/Units 13:30 13:30 13:45 RBC 3.32 L (4.30-5.90) m/uL Hgb 8.4 L D (13.0-17.5) gm/dL Hct 27.4 L (39.0-53.0) % MCHC 30.7 L (31.0-37.0) g/dL Neutrophils # 7.8 H (1.3-7.7) k/uL APTT (22.0-30.0) sec ABG pH (7.35-7.45) ABG pCO2 (35-45) mmHg ABG pO2 (83-108) mmHg ABG HCO3 (21-25) mmol/L ABG Total CO2 (19-24) mmol/L ABG O2 Saturation (94-97) % ABG Hematocrit (34.0-46.0) % ABG Lactic Acid (0.5-1.6) mmol/L Hemoglobin (13.0-17.5) gm/dL Chloride 110 H (98-107) mmol/L BUN 8 L (9-20) mg/dL Creatinine 0.56 L (0.66-1.25) mg/dL POC Glucose (mg/dL) 100 H (75-99) mg/dL Calcium 7.9 L (8.4-10.2) mg/dL Total Protein 4.7 L (6.3-8.2) g/dL Albumin 2.8 L (3.5-5.0) g/dL Crossmatch 05/20/21 05/20/21 05/20/21 Range/Units 14:07 15:12 16:04 RBC (4.30-5.90) m/uL Hgb (13.0-17.5) gm/dL Hct (39.0-53.0) % MCHC (31.0-37.0) g/dL Neutrophils # (1.3-7.7) k/uL APTT (22.0-30.0) sec ABG pH 7.33 L (7.35-7.45) ABG pCO2 48 H (35-45) mmHg ABG pO2 >400 H (83-108) mmHg ABG HCO3 (21-25) mmol/L ABG Total CO2 27 H (19-24) mmol/L ABG O2 Saturation 99.7 H (94-97) % ABG Hematocrit (34.0-46.0) % ABG Lactic Acid (0.5-1.6) mmol/L Hemoglobin (13.0-17.5) gm/dL Chloride (98-107) mmol/L BUN (9-20) mg/dL Creatinine (0.66-1.25) mg/dL POC Glucose (mg/dL) 106 H 116 H (75-99) mg/dL Calcium (8.4-10.2) mg/dL Total Protein (6.3-8.2) g/dL Albumin (3.5-5.0) g/dL Crossmatch Microbiology - Last 24 Hours (Table) 05/19/21 17:18 Nasal Screen MRSA/MSSA - Preliminary Nasopharyngeal Swab Assessment and Plan Plan: Unstable angina, severe coronary artery disease S/p cabg X3 on 05/20, currently intubated, vent management per pulm Continue aspirin, heparin drips Statin changed to Lipitor 80 mg daily. Cardiothoracic surgery evaluation for CABG Peripheral arterial disease with intermittent claudication. Maintained on Xarelto Chronic Essential hypertension Hyperlipidemia GERD Chronic and ongoing tobacco dependence of greater than 30 years All stable Continue home meds
[2021-05-20 17:03] LABS: Glucose,Whole Blood 128 mg/dL (75-99)
[2021-05-20] MEDS: HEPARIN SODIUM,PORCINE/PF 5,000 UNIT/0.5 ML SYRINGE SQ SCH ×2 (17:21→23:45)
[2021-05-20 17:27] LABS: ABG Base Excess -1.6 mmol/L; ABG HCO3 26 mmol/L (21-25); ABG Oxygen Saturation 94.6 % (94-97); ABG PCO2 60 mmHg (35-45); ABG PH 7.24 (7.35-7.45); ABG PO2 82 mmHg (83-108); ABG TCO2 28 mmol/L (19-24); Allen Test Performed? Yes
[2021-05-20] MEDS: ACETAMINOPHEN IV (For NPO) 1,000 MG in EMPTY BAG 1 BAG IVPB SCH ×2 (17:34→23:45)
[2021-05-20 17:41] LABS: Cholesterol 119 mg/dL (0-200)
[2021-05-20 17:55] LABS: Basophils # (A) 0.1 k/uL (0-0.2); Basophils % (A) 0 %; Eosinophils # (A) 0.1 k/uL (0-0.7); Eosinophils % (A) 1 %; HCT 32.1 % (39.0-53.0); HGB 9.6 gm/dL (13.0-17.5); Hypochromasia Marked; Lymphocytes # (A) 1.3 k/uL (1.0-4.8); Lymphocytes % (A) 8 %; MCH 25.5 pg (25.0-35.0); MCHC 29.9 g/dL (31.0-37.0); MCV 85.3 fL (80.0-100.0); Mean Platelet Volume 6.9; Monocytes # (A) 0.7 k/uL (0-1.0); Monocytes % (A) 4 %; Neutrophils # (A) 14.1 k/uL (1.3-7.7); Neutrophils % (A) 87 %; Platelet Count 336 k/uL (150-450); RBC 3.76 m/uL (4.30-5.90); RDW 14.9 % (11.5-15.5); WBC 16.3 k/uL (3.8-10.6)
[2021-05-20] MEDS: ALBUMIN HUMAN 5% 250 ML in EMPTY BAG 1 BAG IVPB PRN (18:06)
[2021-05-20 18:08] LABS: Glucose,Whole Blood 136 mg/dL (75-99)
[2021-05-20 18:55] LABS: Glucose,Whole Blood 122 mg/dL (75-99)
[2021-05-20] MEDS: IPRATROPIUM-ALBUTEROL 3 ML NEB INHALATION SCH (19:28)
[2021-05-20 19:56] LABS: Hepatitis A Antibody IgM Non-Reactive (Non-Reactive); Hepatitis B Core IgM Non-Reactive (Non-Reactive); Hepatitis B Surface Antigen Non-Reactive (Non-Reactive); Hepatitis C IgG Antibody Non-Reactive (Non-Reactive)
[2021-05-20 20:11] LABS: Glucose,Whole Blood 123 mg/dL (75-99)
[2021-05-20] MEDS: METOPROLOL TARTRATE 25 MG TAB PO SCH (20:21)
[2021-05-20 20:26] LABS: Basophils % (A) 0 %; Eosinophils % (A) 0 %; HCT 31.4 % (39.0-53.0); HGB 9.6 gm/dL (13.0-17.5); Hypochromasia Moderate; Lymphocytes # (A) 0.6 k/uL (1.0-4.8); Lymphocytes % (A) 4 %; MCH 25.6 pg (25.0-35.0); MCHC 30.7 g/dL (31.0-37.0); MCV 83.3 fL (80.0-100.0); Mean Platelet Volume 8.1; Monocytes # (A) 0.6 k/uL (0-1.0); Monocytes % (A) 4 %; Neutrophils # (A) 13.1 k/uL (1.3-7.7); Neutrophils % (A) 91 %; Platelet Count 291 k/uL (150-450); RBC 3.77 m/uL (4.30-5.90); RDW 14.6 % (11.5-15.5); WBC 14.4 k/uL (3.8-10.6)
[2021-05-20] MEDS ORDERED: AMIODARONE 450 MG in DEXTROSE 5% IN WATER 250 ML IV PRN ×2 (20:30)
[2021-05-20 21:09] LABS: Glucose,Whole Blood 118 mg/dL (75-99)
[2021-05-20 22:12] LABS: Glucose,Whole Blood 116 mg/dL (75-99)
[2021-05-20 23:13] LABS: Glucose,Whole Blood 116 mg/dL (75-99)
[2021-05-21 00:05] LABS: Glucose,Whole Blood 119 mg/dL (75-99)
[2021-05-21] MEDS ORDERED: HYDROcodone/APAP 5-325MG 1 EACH TAB PO PRN (01:13)
[2021-05-21 02:08] LABS: Glucose,Whole Blood 110 mg/dL (75-99)
[2021-05-21 03:27] LABS: Glucose,Whole Blood 121 mg/dL (75-99)
[2021-05-21 03:32] LABS: Basophils % (A) 0 %; Eosinophils # (A) 0.1 k/uL (0-0.7); Eosinophils % (A) 0 %; HCT 33.1 % (39.0-53.0); HGB 10.2 gm/dL (13.0-17.5); Hypochromasia Marked; Lymphocytes # (A) 0.8 k/uL (1.0-4.8); Lymphocytes % (A) 4 %; MCH 25.7 pg (25.0-35.0); MCHC 30.7 g/dL (31.0-37.0); MCV 83.4 fL (80.0-100.0); Mean Platelet Volume 7.3; Monocytes # (A) 0.7 k/uL (0-1.0); Monocytes % (A) 4 %; Neutrophils # (A) 15.6 k/uL (1.3-7.7); Neutrophils % (A) 90 %; Platelet Count 276 k/uL (150-450); RBC 3.96 m/uL (4.30-5.90); RDW 14.6 % (11.5-15.5); WBC 17.3 k/uL (3.8-10.6)
[2021-05-21 03:44] LABS: ALT 23 U/L (4-49); AST 41 U/L (17-59); African American GFR (CKD) >90 (>60 ml/min/1.73 sqM); Albumin 3.6 g/dL (3.5-5.0); Alkaline Phosphatase 58 U/L (38-126); Anion Gap 6 mmol/L; Blood Urea Nitrogen 10 mg/dL (9-20); Calcium 8.6 mg/dL (8.4-10.2); Carbon Dioxide 25 mmol/L (22-30); Chloride 104 mmol/L (98-107); Glucose 116 mg/dL (74-99); Magnesium 1.7 mg/dL (1.6-2.3); Non-African American GFR(CKD) >90 (>60 ml/min/1.73 sqM); Potassium 4.2 mmol/L (3.5-5.1); Sodium 135 mmol/L (137-145); Total Bilirubin 0.4 mg/dL (0.2-1.3); Total Protein 5.7 g/dL (6.3-8.2)
[2021-05-21 04:13] LABS: Glucose,Whole Blood 108 mg/dL (75-99)
[2021-05-21] MEDS: ALBUMIN HUMAN 5% 250 ML in EMPTY BAG 1 BAG IVPB PRN ×3 (04:15→19:17)
[2021-05-21 05:19] LABS: Glucose,Whole Blood 107 mg/dL (75-99)
[2021-05-21] MEDS: KETOROLAC 15 MG/ML 1 ML VIAL IVP SCH ×3 (05:45→17:44)
[2021-05-21] MEDS: MAGNESIUM SULFATE-D5W PMX 1 GM in DEXTROSE/WATER 1 100ML.BAG IVPB SCH ×2 (05:46→06:46)
[2021-05-21] MEDS: IPRATROPIUM-ALBUTEROL 3 ML NEB INHALATION SCH ×4 (06:01→20:29)
[2021-05-21 06:07] LABS: Glucose,Whole Blood 114 mg/dL (75-99)
[2021-05-21] MEDS: THIAMINE 100 MG TAB PO SCH ×2 (07:02→16:43)
[2021-05-21 07:19] LABS: Glucose,Whole Blood 126 mg/dL (75-99)
[2021-05-21] MEDS: FOLIC ACID 1 MG TAB PO SCH (08:24)
[2021-05-21] MEDS: HEPARIN SODIUM,PORCINE/PF 5,000 UNIT/0.5 ML SYRINGE SQ SCH ×2 (08:24→16:42)
[2021-05-21] MEDS: CLOPIDOGREL 75 MG TAB PO SCH (08:24)
[2021-05-21] MEDS: ATORVASTATIN 40 MG TAB PO SCH (08:24)
[2021-05-21] MEDS: ASPIRIN 325 MG TAB PO SCH (08:24)
[2021-05-21] MEDS: MUPIROCIN 2% OINT 22 GM TUBE NASAL SCH ×2 (08:26→22:20)
[2021-05-21 08:56] LABS: Glucose,Whole Blood 128 mg/dL (75-99)
[2021-05-21] MEDS ORDERED: PANTOPRAZOLE 40 MG/10 ML VIAL IVP SCH (09:00)
[2021-05-21] MEDS ORDERED: METOPROLOL TARTRATE 12.5 MG TAB PO SCH (09:00)
[2021-05-21] MEDS ORDERED: MAGNESIUM HYDROXIDE 2,400 MG/10 ML CUP PO PRN (09:00)
[2021-05-21] MEDS ORDERED: bisacodyL 10 MG SUPP RECTAL PRN (09:00)
--- NOTE | 2021-05-21 09:01 | XR ---
EXAMINATION TYPE: XR chest 1V portable DATE OF EXAM: 05/21/2021 COMPARISON: Chest x-ray 05/20/2021 HISTORY: Postop, extubated, chest tube TECHNIQUE: Single frontal view of the chest is obtained. FINDINGS: Endotracheal tube and NG tube have been removed. Bilateral chest tubes, median sternal ashley in, right jugular central venous catheter are overlying appropriate positions. Patient is post median sternotomy and left atrial appendage clip placement. There is a minimal left apical pneumothorax and minimal right apical pneumothorax. Patchy basilar density is present, patient is rotated, exam is ex piratory. Cardiomediastinal silhouette is not significantly changed. Aorta is dense. No sizable effus ion. IMPRESSION: Status post extubation, satisfactory postoperative chest x-ray. Basilar atelectasis. Exp iratory rotated exam.
[2021-05-21] MEDS: METOPROLOL TARTRATE 25 MG TAB PO SCH ×2 (09:22→22:19)
--- NOTE | 2021-05-21 09:23 | P.PN ---
Subjective Progress Note Date: 05/21/21 Principal diagnosis: Symptomatic coronary artery disease. His medical history of coronary artery disease with PCI in 2006 to the circumflex coronary artery, intermittent claudication with PAD on Xarelto, hypertension, hyperlipidemia, bilateral internal carotid artery stenosis, GERD, current tobacco dependence, family history of coronary artery disease POD #1 off-pump coronary artery bypass graft 3 with right internal mammary artery to the left anterior descending artery, left internal mammary artery to the obtuse marginal, and reverse greater saphenous vein graft to the posterior lateral branch, endovascular vein harvest of the left thigh and upper portion of the lower leg, ligation of the left atrial appendage with 40 mm AtriCure clip Postoperative acute blood loss anemia, expected given hemodilution and preoperative anemia The patient's currently sitting up in a recliner in the intensive care unit in no acute distress. He was successfully extubated yesterday at 17:41. Denies any pain or shortness of breath, overall had an uneventful evening. Remains in sinus rhythm and hemodynamically stable on no inotropes or pressors. Mediastinal/right pleural/left pleural chest tubes, right internal jugular [place]/Cordis present. No new concerns. Objective - Vital Signs Vital signs: Vital Signs Temp 34.5 F L 05/20/21 13:45 Pulse 78 05/21/21 07:00 Resp 20 05/21/21 07:00 BP 100/51 05/21/21 07:00 Pulse Ox 96 05/21/21 07:00 Intake & Output 05/20/21 05/21/21 05/21/21 18:59 06:59 18:59 Intake Total 744.269 6162.096 757.5 Output Total 2365 1468 38 Balance -1892.324 -176.904 719.5 Weight 79.5 kg Intake: IV 438.5 1077.0 257.5 0.9 SODIUM CHLORIDE 49 99 6 PRESSURE BAG ACETAMINOPHEN IV (For NPO 100 ) 1,000 mg In Empty Bag 1 bag @ 400 mls/hr IVPB Q6HR IVON Rx#:[id number] CARDIAC OUTPUT 50 210 Lactated Ringers 1,000 ml 275 600 50 @ 20 mls/hr IV .Q24H IVON Rx#:[id number] Magnesium Sulfate-D5w Pmx 200 1 gm In Dextrose/Water 1 100ml.bag @ 100 mls/hr IVPB Q1H IVON Rx#: [id number] Nitroglycerin-D5w Pmx 50 8.5 18.0 1.5 mg In Dextrose/Water 1 250ml.bag @ 5 MCG/MIN 1.5 mls/hr IV .Q24H ONE Rx#: [id number] ceFAZolin 2 gm In Sodium 50 50 Chloride 0.9% 50 ml @ 100 mls/hr IVPB ONCE ONE Rx# :[id number] Intake, IV Titration 34.176 14.096 0 Amount Clevidipine Butyrate 25 26.500 8.667 mg In Empty Bag 1 bag @ 1 MG/HR 2 mls/hr IV .Q24H [facility] Rx#:[id number] Insulin Regular 100 unit 5.429 0 In Sodium Chloride 0.9% 100 ml @ Per Protocol IV .Q0M [facility] Rx#:[id number] propofoL 1,000 mg In 7.676 Empty Bag 1 bag @ Titrate IV .Q0M [facility] Rx#: [id number] Oral 200 500 Output: Chest Tube Drainage 275 446 0 Chest Tube Left Lateral 35 201 0 Chest Chest Tube Mediastinal 215 170 0 Chest Tube Right Lateral 25 75 0 Chest Urine 1340 1022 38 Estimated Blood Loss 750 Other: Voiding Method Indwelling Catheter Indwelling Catheter ABP, PAP, CO, CI - Last Documented Arterial Blood Pressure 95/66 Pulmonary Artery Pressure 26/6 Cardiac Output 5.7 Cardiac Index 2.9 - Exam CONSTITUTIONAL: Appears comfortable, cooperative, no acute distress RESPIRATORY: Lungs sounds diminished bilaterally. Respirations even, nonlabored. Currently on room air with oxygen saturation 98%. Able to achieve 1000 mL on incentive spirometry. Strong cough. CARDIOVASCULAR: S1, S2 present. Regular rate and rhythm, sinus rhythm on telemetry. Sternum stable. Palpable peripheral pulses bilaterally. No edema present. No calf pain or tenderness noted. Heart hugger in place with patient demonstrating appropriate use. Antiembolism stockings, SCDs present. GASTROINTESTINAL: Abdomen soft, nontender, nondistended. Hypoactive bowel sounds present 4 quadrants. Tolerating clear liquids. Negative flatus GENITOURINARY: Marie present draining clear, yellow urine. Output overnight 30-75 mL per hour INTEGUMENTARY: Skin is warm and dry with evidence of good perfusion. Anterior chest incision well approximated and covered with dry intact dressing. Left lower extremity EVH site well approximated without redness or drainage. NEUROLOGIC: Cranial nerves II through XII intact MUSKULOSKELETAL: Able to move all extremities, strength equal bilaterally, gait normal PSYCHIATRIC: Alert and oriented to person place and time, appropriate affect, intact judgment and insight INVASIVE LINES AND TUBES: Mediastinal/left/right pleural chest tubes present and connected to wall suction, no air leaks present. Mediastinal tube with 130 mL serosanguineous drainage overnight, 400 mL since surgery. Left pleural chest tube with 135 mL serosanguineous drainage overnight, 200 mL since surgery. Right pleural chest tube with 40 mL serosanguineous drainage overnight, 95 mL since surgery. Right internal jugular [place]/Cordis present. Last CO/CI 5.7/2.9, PA 25/5, CVP 3. - Allied health notes Allied health notes reviewed: nursing - Labs CBC & Chem 7: 05/21/21 03:12 05/21/21 03:12 Labs: Abnormal Lab Results - Last 24 Hours (Table) 05/19/21 05/20/21 05/20/21 Range/Units 16:07 09:10 10:31 WBC (3.8-10.6) k/uL RBC (4.30-5.90) m/uL Hgb (13.0-17.5) gm/dL Hct (39.0-53.0) % MCHC (31.0-37.0) g/dL Neutrophils # (1.3-7.7) k/uL Lymphocytes # (1.0-4.8) k/uL ABG pH (7.35-7.45) ABG pCO2 (35-45) mmHg ABG pO2 225 H 260 H (83-108) mmHg ABG HCO3 26 H 26 H (21-25) mmol/L ABG Total CO2 27 H 27 H (19-24) mmol/L ABG O2 Saturation 99.9 H 100.0 H (94-97) % ABG Hematocrit 30 L 28 L (34.0-46.0) % ABG Lactic Acid (0.5-1.6) mmol/L Hemoglobin 9.7 L 9.1 L (13.0-17.5) gm/dL Sodium (137-145) mmol/L Chloride (98-107) mmol/L BUN (9-20) mg/dL Creatinine (0.66-1.25) mg/dL Glucose (74-99) mg/dL POC Glucose (mg/dL) (75-99) mg/dL Calcium (8.4-10.2) mg/dL Total Protein (6.3-8.2) g/dL Albumin (3.5-5.0) g/dL Crossmatch See Detail 05/20/21 05/20/21 05/20/21 Range/Units 11:23 11:58 12:30 WBC (3.8-10.6) k/uL RBC (4.30-5.90) m/uL Hgb (13.0-17.5) gm/dL Hct (39.0-53.0) % MCHC (31.0-37.0) g/dL Neutrophils # (1.3-7.7) k/uL Lymphocytes # (1.0-4.8) k/uL ABG pH 7.34 L 7.33 L 7.34 L (7.35-7.45) ABG pCO2 47 H 48 H 47 H (35-45) mmHg ABG pO2 270 H 276 H 258 H (83-108) mmHg ABG HCO3 26 H (21-25) mmol/L ABG Total CO2 27 H 26 H 27 H (19-24) mmol/L ABG O2 Saturation 99.9 H 99.9 H 99.7 H (94-97) % ABG Hematocrit 26 L 25 L 22 L (34.0-46.0) % ABG Lactic Acid 0.4 L (0.5-1.6) mmol/L Hemoglobin 8.5 L 8.0 L 7.3 L (13.0-17.5) gm/dL Sodium (137-145) mmol/L Chloride (98-107) mmol/L BUN (9-20) mg/dL Creatinine (0.66-1.25) mg/dL Glucose (74-99) mg/dL POC Glucose (mg/dL) (75-99) mg/dL Calcium (8.4-10.2) mg/dL Total Protein (6.3-8.2) g/dL Albumin (3.5-5.0) g/dL Crossmatch 05/20/21 05/20/21 05/20/21 Range/Units 13:00 13:30 13:30 WBC (3.8-10.6) k/uL RBC 3.32 L (4.30-5.90) m/uL Hgb 8.4 L D (13.0-17.5) gm/dL Hct 27.4 L (39.0-53.0) % MCHC 30.7 L (31.0-37.0) g/dL Neutrophils # 7.8 H (1.3-7.7) k/uL Lymphocytes # (1.0-4.8) k/uL ABG pH (7.35-7.45) ABG pCO2 (35-45) mmHg ABG pO2 180 H (83-108) mmHg ABG HCO3 (21-25) mmol/L ABG Total CO2 26 H (19-24) mmol/L ABG O2 Saturation 99.5 H (94-97) % ABG Hematocrit 24 L (34.0-46.0) % ABG Lactic Acid (0.5-1.6) mmol/L Hemoglobin 7.9 L (13.0-17.5) gm/dL Sodium (137-145) mmol/L Chloride 110 H (98-107) mmol/L BUN 8 L (9-20) mg/dL Creatinine 0.56 L (0.66-1.25) mg/dL Glucose (74-99) mg/dL POC Glucose (mg/dL) (75-99) mg/dL Calcium 7.9 L (8.4-10.2) mg/dL Total Protein 4.7 L (6.3-8.2) g/dL Albumin 2.8 L (3.5-5.0) g/dL Crossmatch 05/20/21 05/20/21 05/20/21 Range/Units 13:45 14:07 15:12 WBC (3.8-10.6) k/uL RBC (4.30-5.90) m/uL Hgb (13.0-17.5) gm/dL Hct (39.0-53.0) % MCHC (31.0-37.0) g/dL Neutrophils # (1.3-7.7) k/uL Lymphocytes # (1.0-4.8) k/uL ABG pH 7.33 L (7.35-7.45) ABG pCO2 48 H (35-45) mmHg ABG pO2 >400 H (83-108) mmHg ABG HCO3 (21-25) mmol/L ABG Total CO2 27 H (19-24) mmol/L ABG O2 Saturation 99.7 H (94-97) % ABG Hematocrit (34.0-46.0) % ABG Lactic Acid (0.5-1.6) mmol/L Hemoglobin (13.0-17.5) gm/dL Sodium (137-145) mmol/L Chloride (98-107) mmol/L BUN (9-20) mg/dL Creatinine (0.66-1.25) mg/dL Glucose (74-99) mg/dL POC Glucose (mg/dL) 100 H 106 H (75-99) mg/dL Calcium (8.4-10.2) mg/dL Total Protein (6.3-8.2) g/dL Albumin (3.5-5.0) g/dL Crossmatch 05/20/21 05/20/21 05/20/21 Range/Units 16:04 17:02 17:24 WBC (3.8-10.6) k/uL RBC (4.30-5.90) m/uL Hgb (13.0-17.5) gm/dL Hct (39.0-53.0) % MCHC (31.0-37.0) g/dL Neutrophils # (1.3-7.7) k/uL Lymphocytes # (1.0-4.8) k/uL ABG pH 7.24 L (7.35-7.45) ABG pCO2 60 H (35-45) mmHg ABG pO2 82 L (83-108) mmHg ABG HCO3 26 H (21-25) mmol/L ABG Total CO2 28 H (19-24) mmol/L ABG O2 Saturation (94-97) % ABG Hematocrit (34.0-46.0) % ABG Lactic Acid (0.5-1.6) mmol/L Hemoglobin (13.0-17.5) gm/dL Sodium (137-145) mmol/L Chloride (98-107) mmol/L BUN (9-20) mg/dL Creatinine (0.66-1.25) mg/dL Glucose (74-99) mg/dL POC Glucose (mg/dL) 116 H 128 H (75-99) mg/dL Calcium (8.4-10.2) mg/dL Total Protein (6.3-8.2) g/dL Albumin (3.5-5.0) g/dL Crossmatch 05/20/21 05/20/21 05/20/21 Range/Units 17:30 17:49 18:53 WBC 16.3 H (3.8-10.6) k/uL RBC 3.76 L (4.30-5.90) m/uL Hgb 9.6 L (13.0-17.5) gm/dL Hct 32.1 L (39.0-53.0) % MCHC 29.9 L (31.0-37.0) g/dL Neutrophils # 14.1 H (1.3-7.7) k/uL Lymphocytes # (1.0-4.8) k/uL ABG pH (7.35-7.45) ABG pCO2 (35-45) mmHg ABG pO2 (83-108) mmHg ABG HCO3 (21-25) mmol/L ABG Total CO2 (19-24) mmol/L ABG O2 Saturation (94-97) % ABG Hematocrit (34.0-46.0) % ABG Lactic Acid (0.5-1.6) mmol/L Hemoglobin (13.0-17.5) gm/dL Sodium (137-145) mmol/L Chloride (98-107) mmol/L BUN (9-20) mg/dL Creatinine (0.66-1.25) mg/dL Glucose (74-99) mg/dL POC Glucose (mg/dL) 136 H 122 H (75-99) mg/dL Calcium (8.4-10.2) mg/dL Total Protein (6.3-8.2) g/dL Albumin (3.5-5.0) g/dL Crossmatch 05/20/21 05/20/21 05/20/21 Range/Units 20:04 20:15 21:07 WBC 14.4 H (3.8-10.6) k/uL RBC 3.77 L (4.30-5.90) m/uL Hgb 9.6 L (13.0-17.5) gm/dL Hct 31.4 L (39.0-53.0) % MCHC 30.7 L (31.0-37.0) g/dL Neutrophils # 13.1 H (1.3-7.7) k/uL Lymphocytes # 0.6 L (1.0-4.8) k/uL ABG pH (7.35-7.45) ABG pCO2 (35-45) mmHg ABG pO2 (83-108) mmHg ABG HCO3 (21-25) mmol/L ABG Total CO2 (19-24) mmol/L ABG O2 Saturation (94-97) % ABG Hematocrit (34.0-46.0) % ABG Lactic Acid (0.5-1.6) mmol/L Hemoglobin (13.0-17.5) gm/dL Sodium (137-145) mmol/L Chloride (98-107) mmol/L BUN (9-20) mg/dL Creatinine (0.66-1.25) mg/dL Glucose (74-99) mg/dL POC Glucose (mg/dL) 123 H 118 H (75-99) mg/dL Calcium (8.4-10.2) mg/dL Total Protein (6.3-8.2) g/dL Albumin (3.5-5.0) g/dL Crossmatch 05/20/21 05/20/21 05/21/21 Range/Units 22:10 23:00 00:03 WBC (3.8-10.6) k/uL RBC (4.30-5.90) m/uL Hgb (13.0-17.5) gm/dL Hct (39.0-53.0) % MCHC (31.0-37.0) g/dL Neutrophils # (1.3-7.7) k/uL Lymphocytes # (1.0-4.8) k/uL ABG pH (7.35-7.45) ABG pCO2 (35-45) mmHg ABG pO2 (83-108) mmHg ABG HCO3 (21-25) mmol/L ABG Total CO2 (19-24) mmol/L ABG O2 Saturation (94-97) % ABG Hematocrit (34.0-46.0) % ABG Lactic Acid (0.5-1.6) mmol/L Hemoglobin (13.0-17.5) gm/dL Sodium (137-145) mmol/L Chloride (98-107) mmol/L BUN (9-20) mg/dL Creatinine (0.66-1.25) mg/dL Glucose (74-99) mg/dL POC Glucose (mg/dL) 116 H 116 H 119 H (75-99) mg/dL Calcium (8.4-10.2) mg/dL Total Protein (6.3-8.2) g/dL Albumin (3.5-5.0) g/dL Crossmatch 05/21/21 05/21/21 05/21/21 Range/Units 02:07 03:10 03:12 WBC 17.3 H (3.8-10.6) k/uL RBC 3.96 L (4.30-5.90) m/uL Hgb 10.2 L (13.0-17.5) gm/dL Hct 33.1 L (39.0-53.0) % MCHC 30.7 L (31.0-37.0) g/dL Neutrophils # 15.6 H (1.3-7.7) k/uL Lymphocytes # 0.8 L (1.0-4.8) k/uL ABG pH (7.35-7.45) ABG pCO2 (35-45) mmHg ABG pO2 (83-108) mmHg ABG HCO3 (21-25) mmol/L ABG Total CO2 (19-24) mmol/L ABG O2 Saturation (94-97) % ABG Hematocrit (34.0-46.0) % ABG Lactic Acid (0.5-1.6) mmol/L Hemoglobin (13.0-17.5) gm/dL Sodium (137-145) mmol/L Chloride (98-107) mmol/L BUN (9-20) mg/dL Creatinine (0.66-1.25) mg/dL Glucose (74-99) mg/dL POC Glucose (mg/dL) 110 H 121 H (75-99) mg/dL Calcium (8.4-10.2) mg/dL Total Protein (6.3-8.2) g/dL Albumin (3.5-5.0) g/dL Crossmatch 05/21/21 05/21/21 05/21/21 Range/Units 03:12 04:08 05:17 WBC (3.8-10.6) k/uL RBC (4.30-5.90) m/uL Hgb (13.0-17.5) gm/dL Hct (39.0-53.0) % MCHC (31.0-37.0) g/dL Neutrophils # (1.3-7.7) k/uL Lymphocytes # (1.0-4.8) k/uL ABG pH (7.35-7.45) ABG pCO2 (35-45) mmHg ABG pO2 (83-108) mmHg ABG HCO3 (21-25) mmol/L ABG Total CO2 (19-24) mmol/L ABG O2 Saturation (94-97) % ABG Hematocrit (34.0-46.0) % ABG Lactic Acid (0.5-1.6) mmol/L Hemoglobin (13.0-17.5) gm/dL Sodium 135 L (137-145) mmol/L Chloride (98-107) mmol/L BUN (9-20) mg/dL Creatinine 0.50 L (0.66-1.25) mg/dL Glucose 116 H (74-99) mg/dL POC Glucose (mg/dL) 108 H 107 H (75-99) mg/dL Calcium (8.4-10.2) mg/dL Total Protein 5.7 L (6.3-8.2) g/dL Albumin (3.5-5.0) g/dL Crossmatch 05/21/21 05/21/21 Range/Units 06:05 07:17 WBC (3.8-10.6) k/uL RBC (4.30-5.90) m/uL Hgb (13.0-17.5) gm/dL Hct (39.0-53.0) % MCHC (31.0-37.0) g/dL Neutrophils # (1.3-7.7) k/uL Lymphocytes # (1.0-4.8) k/uL ABG pH (7.35-7.45) ABG pCO2 (35-45) mmHg ABG pO2 (83-108) mmHg ABG HCO3 (21-25) mmol/L ABG Total CO2 (19-24) mmol/L ABG O2 Saturation (94-97) % ABG Hematocrit (34.0-46.0) % ABG Lactic Acid (0.5-1.6) mmol/L Hemoglobin (13.0-17.5) gm/dL Sodium (137-145) mmol/L Chloride (98-107) mmol/L BUN (9-20) mg/dL Creatinine (0.66-1.25) mg/dL Glucose (74-99) mg/dL POC Glucose (mg/dL) 114 H 126 H (75-99) mg/dL Calcium (8.4-10.2) mg/dL Total Protein (6.3-8.2) g/dL Albumin (3.5-5.0) g/dL Crossmatch Microbiology - Last 24 Hours (Table) 05/19/21 17:18 Nasal Screen MRSA/MSSA - Final Nasopharyngeal Swab - Imaging and Cardiology Chest x-ray: image reviewed Assessment and Plan Assessment: 1. Symptomatic coronary artery disease, previous PCI in 2005 to the circumflex coronary artery, status post three-vessel CABG 2. Intermittent claudication with PAD on Xarelto 3. Hypertension 4. Hyperlipidemia, treated, cholesterol 119, LDL 55 5. GERD 6. Current tobacco dependence 7. Severe COPD with preoperative FEV1 35% of predicted 8. Bilateral internal carotid artery stenosis 50-79% 9. Almost daily EtOH use, 4-5 beers daily 10. Family history of coronary artery disease Plan: 1. Continue aspirin, statin, Plavix, beta gayle therapy. Will increase beta gayle therapy as tolerated 2. Discontinue IV nitro 3. Encourage incentive spirometry 10 times every hour while awake. Bronchodilators per pulmonology 4. Increase activity, ambulate as tolerated. PT/OT/cardiac rehab following 5. Will monitor daily labs and x-rays. Electrolyte replacement per protocol. No transfusion 6. GI/DVT prophylaxis 7. Pain control with current medication regimen 8. Insulin management per primary care service. Patient is not diabetic, hemoglobin A1c 6.0%, although patient does need tight blood sugar control to prevent infection and promote sternal union 9. Continue folic acid, thiamine, CIWA protocol 10. Discontinue [place]. Connect Cordis to continueous CVP monitoring 11. Continue mediastinal/right/left pleural chest tubes for another 24 hours 12. Continue Marie catheter for another 24 hours for strict accurate intake and output. Daily weights 13. Continue to encourage smoking cessation 14. More recommendations to follow Time with Patient: Greater than 30
[2021-05-21] MEDS: HYDROcodone/APAP 5-325MG 1 EACH TAB PO PRN ×2 (09:38→10:18)
[2021-05-21 10:16] LABS: Glucose,Whole Blood 106 mg/dL (75-99)
--- NOTE | 2021-05-21 10:39 | PN ---
PROGRESS NOTE Mr. Antony is a 60-year-old male who has been followed by Dr. Momin, underwent cardiac catheterization by Dr. Momin on May 19 and was found to have severe obstructive disease with 100% occlusion of the nondominant right, significant left main disease, the proximal LAD and mid LAD lesion as well as proximal left circumflex with abnormal IFR. He underwent cardiac bypass grafting yesterday by Dr. Carrillo and received JAYSON to the LAD, STOCK[place] to the OM. He is doing well this morning. He is sitting up in the chair. His breathing is stable. He denies any chest pain. He denies any dizziness. He denies any palpitations. He is in sinus mechanism. Hemodynamically, he is stable. His coronary risk factors are positive for hyperlipidemia and hypertension. MEDICATION: At this time include: Aspirin, Lipitor 40 mg daily, Plavix 75 mg daily, metoprolol tartrate 25 mg twice a day. PHYSICAL EXAMINATION: Blood pressure 102/50 with a heart rate in the 80s. Lungs with mild decreased breath sounds at the bases. Heart: Regular rate and rhythm S1, S2. No S3 with a rub. Plus rub. No gallop. Abdomen: Soft, nontender. Positive bowel sounds. No organomegaly. Extremities with no significant edema. LAB DATA: Lab data revealed BUN and creatinine 10 and 0.5, potassium 4.2, hemoglobin of 10.2. IMPRESSION: 1. Status post coronary artery bypass grafting. 2. History of hyperlipidemia. 3. History of carotid disease. 4. History of tobacco use. 5. History of chronic obstructive lung disease. 6. Prior history of alcohol intake. RECOMMENDATIONS: From the cardiac standpoint, he is stable. Will continue incentive spirometry. Follow his rhythm and his blood pressure and depending on that, further recommendations will be made. MMODL / IJN: [id number] /
[2021-05-21] MEDS: LACTATED RINGERS 1,000 ML IV SCH (10:43)
--- NOTE | 2021-05-21 11:18 | P.PN ---
Subjective Progress Note Date: 05/21/21 Principal diagnosis: Status post bypass grafting. This is a 60-year-old male patient who follows with Dr. Gilman as his primary care provider. He has a history of coronary artery disease with previous stent placement in 2005, peripheral arterial disease and lower extremities, hypertension, hyperlipidemia, gastroesophageal reflux disease, chronic and ongoing tobacco dependence of approximately 30 years. He had recently been the having symptoms of chest discomfort and jaw pain. He presented here electively for cardiac catheterization and was found to have significant multivessel coronary artery disease. The plan is for possible coronary artery bypass surgery tomorrow. He is seen today on the selective care unit. He is awake and alert in no acute distress. Denies any shortness of breath, cough or congestion. He is not been on any maintenance inhalers. FEV1 value is found to be 35% of predicted. Chest x-ray reveals no acute pulmonary process. Maintaining good O2 saturations in the upper 90s on room air. He's been afebrile. Hemodynamically stable. He is educated regarding the use of the incentive spirometer. Nebulized treatments will be ordered. The patient is seen today 05/20/2021 in the intensive care unit shortly after returning from surgery. He received a off-pump CABG 3 with STOCKTON to LAD, OM and saphenous vein graft to the posterior lateral branch with endovascular vein harvest and ligation of the left atrial appendage. He remains intubated on the mechanical ventilator at assist control mode rate of 12, tidal volume 500, FiO2 100% and a PEEP of 5. Arterial blood gases revealed a PaO2 of 400, pCO2 48, pH 7.33. Peak pressure 23, plateau pressure 17. He is under a Rubina hugger. He has a mediastinal, right and left chest tubes in place. He remains on nitroglycerin at 5 mcg/m, propofol at 20 mcg/kg/m, lactated Ringer's at 50 MLS per hour. His potassium is being replaced. Cardiac output 5.0. Cardiac index 2.6. PA pressure 20/10. He is currently in normal sinus rhythm. Chest x-ray reveals no sizable pneumothorax or pleural effusion. White count 9.9. Hemoglobin 8.4. sodium 138. Potassium 4.0. Creatinine 0.56. AST 25. ALT 19. Glucose 100. Remains on bronchodilators. Heparin for DVT prophylaxis. Progress note dated 05/21/2021. This is a 60-year-old male who is postop day #1, status post three-vessel bypass grafting. The patient has been weaned down to room air. He is getting lactated Ringer's at 20 mL an hour, and insulin drip at 0.5 units an hour. He was extubated within 4 hours after leaving the operating room. Clinically he looks well. Sitting in a chair next to his bed. He has no major complaints other than for pain at the surgical site. He is working hard on his deep breathing, coughing, clearing of secretions. He also continues to work hard on the [employer] spirometer. White count 17.3, hemoglobin 10.2, hematocrit 33.1, platelet count 276,000. Sodium 135, potassium 4.2, chlorides 104, CO2 25, anion gap 6, BUN 10, creatinine 0.5. Chest x-ray shows some typical postoperative changes, with bibasilar atelectasis. Objective - Vital Signs Vital signs: Vital Signs Temp 98.4 F 05/21/21 08:00 Pulse 73 05/21/21 11:00 Resp 18 05/21/21 11:00 BP 104/66 05/21/21 11:00 Pulse Ox 96 05/21/21 11:00 Intake & Output 05/20/21 05/21/21 05/21/21 18:59 06:59 18:59 Intake Total 189.353 1713.096 980.838 Output Total 2365 1468 308 Balance -1892.324 -176.904 672.838 Weight 79.5 kg Intake: IV 438.5 1077.0 379.5 0.9 SODIUM CHLORIDE 49 99 18 PRESSURE BAG ACETAMINOPHEN IV (For NPO 100 ) 1,000 mg In Empty Bag 1 bag @ 400 mls/hr IVPB Q6HR [facility] Rx#:[id number] CARDIAC OUTPUT 50 210 Lactated Ringers 1,000 ml 275 600 110 @ 20 mls/hr IV .Q24H [facility] Rx#:[id number] Magnesium Sulfate-D5w Pmx 200 1 gm In Dextrose/Water 1 100ml.bag @ 100 mls/hr IVPB Q1H [facility] Rx#: [id number] Nitroglycerin-D5w Pmx 50 8.5 18.0 1.5 mg In Dextrose/Water 1 250ml.bag @ 5 MCG/MIN 1.5 mls/hr IV .Q24H ONE Rx#: [id number] ceFAZolin 2 gm In Sodium 50 50 50 Chloride 0.9% 50 ml @ 100 mls/hr IVPB ONCE ONE Rx# :[id number] Intake, IV Titration 34.176 14.096 1.338 Amount Clevidipine Butyrate 25 26.500 8.667 mg In Empty Bag 1 bag @ 1 MG/HR 2 mls/hr IV .Q24H [facility] Rx#:[id number] Insulin Regular 100 unit 5.429 1.338 In Sodium Chloride 0.9% 100 ml @ Per Protocol IV .Q0M [facility]ON Rx#:[id number] propofoL 1,000 mg In 7.676 Empty Bag 1 bag @ Titrate IV .Q0M [facility] Rx#: [id number] Oral 200 600 Output: Chest Tube Drainage 275 446 150 Chest Tube Left Lateral 35 201 80 Chest Chest Tube Mediastinal 215 170 50 Chest Tube Right Lateral 25 75 20 Chest Urine 1340 1022 158 Estimated Blood Loss 750 Other: Voiding Method Indwelling Catheter Indwelling Catheter ABP, PAP, CO, CI - Last Documented Arterial Blood Pressure 95/66 Pulmonary Artery Pressure 23/10 Cardiac Output 5.7 Cardiac Index 2.9 - Exam No acute distress, oriented 3. Currently, the patient's not requiring any supplemental oxygen HEENT examination is grossly unremarkable. Neck supple. Full range of motion. No adenopathy thyromegaly or neck vein distention. Cardiovascular examination reveals regular rhythm rate. S1-S2 normal. No S3 or S4. No discernible murmur noted. Heart rate 73 bpm. Lungs reveal bilateral scattered rhonchi. No wheezes or crackles. Breath sounds are equal bilaterally. Abdomen soft bowel sounds are heard. No masses or tenderness. Extremities are intact. No cyanosis clubbing or edema. Skin is without rash or lesion. Neurologic examination is brief but nonfocal. - Labs CBC & Chem 7: 05/21/21 03:12 05/21/21 03:12 Labs: Abnormal Lab Results - Last 24 Hours (Table) 05/19/21 05/20/21 05/20/21 Range/Units 16:07 09:10 10:31 WBC (3.8-10.6) k/uL RBC (4.30-5.90) m/uL Hgb (13.0-17.5) gm/dL Hct (39.0-53.0) % MCHC (31.0-37.0) g/dL Neutrophils # (1.3-7.7) k/uL Lymphocytes # (1.0-4.8) k/uL ABG pH (7.35-7.45) ABG pCO2 (35-45) mmHg ABG pO2 225 H 260 H (83-108) mmHg ABG HCO3 26 H 26 H (21-25) mmol/L ABG Total CO2 27 H 27 H (19-24) mmol/L ABG O2 Saturation 99.9 H 100.0 H (94-97) % ABG Hematocrit 30 L 28 L (34.0-46.0) % ABG Lactic Acid (0.5-1.6) mmol/L Hemoglobin 9.7 L 9.1 L (13.0-17.5) gm/dL Sodium (137-145) mmol/L Chloride (98-107) mmol/L BUN (9-20) mg/dL Creatinine (0.66-1.25) mg/dL Glucose (74-99) mg/dL POC Glucose (mg/dL) (75-99) mg/dL Calcium (8.4-10.2) mg/dL Total Protein (6.3-8.2) g/dL Albumin (3.5-5.0) g/dL Crossmatch See Detail 05/20/21 05/20/21 05/20/21 Range/Units 11:23 11:58 12:30 WBC (3.8-10.6) k/uL RBC (4.30-5.90) m/uL Hgb (13.0-17.5) gm/dL Hct (39.0-53.0) % MCHC (31.0-37.0) g/dL Neutrophils # (1.3-7.7) k/uL Lymphocytes # (1.0-4.8) k/uL ABG pH 7.34 L 7.33 L 7.34 L (7.35-7.45) ABG pCO2 47 H 48 H 47 H (35-45) mmHg ABG pO2 270 H 276 H 258 H (83-108) mmHg ABG HCO3 26 H (21-25) mmol/L ABG Total CO2 27 H 26 H 27 H (19-24) mmol/L ABG O2 Saturation 99.9 H 99.9 H 99.7 H (94-97) % ABG Hematocrit 26 L 25 L 22 L (34.0-46.0) % ABG Lactic Acid 0.4 L (0.5-1.6) mmol/L Hemoglobin 8.5 L 8.0 L 7.3 L (13.0-17.5) gm/dL Sodium (137-145) mmol/L Chloride (98-107) mmol/L BUN (9-20) mg/dL Creatinine (0.66-1.25) mg/dL Glucose (74-99) mg/dL POC Glucose (mg/dL) (75-99) mg/dL Calcium (8.4-10.2) mg/dL Total Protein (6.3-8.2) g/dL Albumin (3.5-5.0) g/dL Crossmatch 05/20/21 05/20/21 05/20/21 Range/Units 13:00 13:30 13:30 WBC (3.8-10.6) k/uL RBC 3.32 L (4.30-5.90) m/uL Hgb 8.4 L D (13.0-17.5) gm/dL Hct 27.4 L (39.0-53.0) % MCHC 30.7 L (31.0-37.0) g/dL Neutrophils # 7.8 H (1.3-7.7) k/uL Lymphocytes # (1.0-4.8) k/uL ABG pH (7.35-7.45) ABG pCO2 (35-45) mmHg ABG pO2 180 H (83-108) mmHg ABG HCO3 (21-25) mmol/L ABG Total CO2 26 H (19-24) mmol/L ABG O2 Saturation 99.5 H (94-97) % ABG Hematocrit 24 L (34.0-46.0) % ABG Lactic Acid (0.5-1.6) mmol/L Hemoglobin 7.9 L (13.0-17.5) gm/dL Sodium (137-145) mmol/L Chloride 110 H (98-107) mmol/L BUN 8 L (9-20) mg/dL Creatinine 0.56 L (0.66-1.25) mg/dL Glucose (74-99) mg/dL POC Glucose (mg/dL) (75-99) mg/dL Calcium 7.9 L (8.4-10.2) mg/dL Total Protein 4.7 L (6.3-8.2) g/dL Albumin 2.8 L (3.5-5.0) g/dL Crossmatch 05/20/21 05/20/21 05/20/21 Range/Units 13:45 14:07 15:12 WBC (3.8-10.6) k/uL RBC (4.30-5.90) m/uL Hgb (13.0-17.5) gm/dL Hct (39.0-53.0) % MCHC (31.0-37.0) g/dL Neutrophils # (1.3-7.7) k/uL Lymphocytes # (1.0-4.8) k/uL ABG pH 7.33 L (7.35-7.45) ABG pCO2 48 H (35-45) mmHg ABG pO2 >400 H (83-108) mmHg ABG HCO3 (21-25) mmol/L ABG Total CO2 27 H (19-24) mmol/L ABG O2 Saturation 99.7 H (94-97) % ABG Hematocrit (34.0-46.0) % ABG Lactic Acid (0.5-1.6) mmol/L Hemoglobin (13.0-17.5) gm/dL Sodium (137-145) mmol/L Chloride (98-107) mmol/L BUN (9-20) mg/dL Creatinine (0.66-1.25) mg/dL Glucose (74-99) mg/dL POC Glucose (mg/dL) 100 H 106 H (75-99) mg/dL Calcium (8.4-10.2) mg/dL Total Protein (6.3-8.2) g/dL Albumin (3.5-5.0) g/dL Crossmatch 05/20/21 05/20/21 05/20/21 Range/Units 16:04 17:02 17:24 WBC (3.8-10.6) k/uL RBC (4.30-5.90) m/uL Hgb (13.0-17.5) gm/dL Hct (39.0-53.0) % MCHC (31.0-37.0) g/dL Neutrophils # (1.3-7.7) k/uL Lymphocytes # (1.0-4.8) k/uL ABG pH 7.24 L (7.35-7.45) ABG pCO2 60 H (35-45) mmHg ABG pO2 82 L (83-108) mmHg ABG HCO3 26 H (21-25) mmol/L ABG Total CO2 28 H (19-24) mmol/L ABG O2 Saturation (94-97) % ABG Hematocrit (34.0-46.0) % ABG Lactic Acid (0.5-1.6) mmol/L Hemoglobin (13.0-17.5) gm/dL Sodium (137-145) mmol/L Chloride (98-107) mmol/L BUN (9-20) mg/dL Creatinine (0.66-1.25) mg/dL Glucose (74-99) mg/dL POC Glucose (mg/dL) 116 H 128 H (75-99) mg/dL Calcium (8.4-10.2) mg/dL Total Protein (6.3-8.2) g/dL Albumin (3.5-5.0) g/dL Crossmatch 05/20/21 05/20/21 05/20/21 Range/Units 17:30 17:49 18:53 WBC 16.3 H (3.8-10.6) k/uL RBC 3.76 L (4.30-5.90) m/uL Hgb 9.6 L (13.0-17.5) gm/dL Hct 32.1 L (39.0-53.0) % MCHC 29.9 L (31.0-37.0) g/dL Neutrophils # 14.1 H (1.3-7.7) k/uL Lymphocytes # (1.0-4.8) k/uL ABG pH (7.35-7.45) ABG pCO2 (35-45) mmHg ABG pO2 (83-108) mmHg ABG HCO3 (21-25) mmol/L ABG Total CO2 (19-24) mmol/L ABG O2 Saturation (94-97) % ABG Hematocrit (34.0-46.0) % ABG Lactic Acid (0.5-1.6) mmol/L Hemoglobin (13.0-17.5) gm/dL Sodium (137-145) mmol/L Chloride (98-107) mmol/L BUN (9-20) mg/dL Creatinine (0.66-1.25) mg/dL Glucose (74-99) mg/dL POC Glucose (mg/dL) 136 H 122 H (75-99) mg/dL Calcium (8.4-10.2) mg/dL Total Protein (6.3-8.2) g/dL Albumin (3.5-5.0) g/dL Crossmatch 05/20/21 05/20/21 05/20/21 Range/Units 20:04 20:15 21:07 WBC 14.4 H (3.8-10.6) k/uL RBC 3.77 L (4.30-5.90) m/uL Hgb 9.6 L (13.0-17.5) gm/dL Hct 31.4 L (39.0-53.0) % MCHC 30.7 L (31.0-37.0) g/dL Neutrophils # 13.1 H (1.3-7.7) k/uL Lymphocytes # 0.6 L (1.0-4.8) k/uL ABG pH (7.35-7.45) ABG pCO2 (35-45) mmHg ABG pO2 (83-108) mmHg ABG HCO3 (21-25) mmol/L ABG Total CO2 (19-24) mmol/L ABG O2 Saturation (94-97) % ABG Hematocrit (34.0-46.0) % ABG Lactic Acid (0.5-1.6) mmol/L Hemoglobin (13.0-17.5) gm/dL Sodium (137-145) mmol/L Chloride (98-107) mmol/L BUN (9-20) mg/dL Creatinine (0.66-1.25) mg/dL Glucose (74-99) mg/dL POC Glucose (mg/dL) 123 H 118 H (75-99) mg/dL Calcium (8.4-10.2) mg/dL Total Protein (6.3-8.2) g/dL Albumin (3.5-5.0) g/dL Crossmatch 05/20/21 05/20/21 05/21/21 Range/Units 22:10 23:00 00:03 WBC (3.8-10.6) k/uL RBC (4.30-5.90) m/uL Hgb (13.0-17.5) gm/dL Hct (39.0-53.0) % MCHC (31.0-37.0) g/dL Neutrophils # (1.3-7.7) k/uL Lymphocytes # (1.0-4.8) k/uL ABG pH (7.35-7.45) ABG pCO2 (35-45) mmHg ABG pO2 (83-108) mmHg ABG HCO3 (21-25) mmol/L ABG Total CO2 (19-24) mmol/L ABG O2 Saturation (94-97) % ABG Hematocrit (34.0-46.0) % ABG Lactic Acid (0.5-1.6) mmol/L Hemoglobin (13.0-17.5) gm/dL Sodium (137-145) mmol/L Chloride (98-107) mmol/L BUN (9-20) mg/dL Creatinine (0.66-1.25) mg/dL Glucose (74-99) mg/dL POC Glucose (mg/dL) 116 H 116 H 119 H (75-99) mg/dL Calcium (8.4-10.2) mg/dL Total Protein (6.3-8.2) g/dL Albumin (3.5-5.0) g/dL Crossmatch 05/21/21 05/21/21 05/21/21 Range/Units 02:07 03:10 03:12 WBC 17.3 H (3.8-10.6) k/uL RBC 3.96 L (4.30-5.90) m/uL Hgb 10.2 L (13.0-17.5) gm/dL Hct 33.1 L (39.0-53.0) % MCHC 30.7 L (31.0-37.0) g/dL Neutrophils # 15.6 H (1.3-7.7) k/uL Lymphocytes # 0.8 L (1.0-4.8) k/uL ABG pH (7.35-7.45) ABG pCO2 (35-45) mmHg ABG pO2 (83-108) mmHg ABG HCO3 (21-25) mmol/L ABG Total CO2 (19-24) mmol/L ABG O2 Saturation (94-97) % ABG Hematocrit (34.0-46.0) % ABG Lactic Acid (0.5-1.6) mmol/L Hemoglobin (13.0-17.5) gm/dL Sodium (137-145) mmol/L Chloride (98-107) mmol/L BUN (9-20) mg/dL Creatinine (0.66-1.25) mg/dL Glucose (74-99) mg/dL POC Glucose (mg/dL) 110 H 121 H (75-99) mg/dL Calcium (8.4-10.2) mg/dL Total Protein (6.3-8.2) g/dL Albumin (3.5-5.0) g/dL Crossmatch 05/21/21 05/21/21 05/21/21 Range/Units 03:12 04:08 05:17 WBC (3.8-10.6) k/uL RBC (4.30-5.90) m/uL Hgb (13.0-17.5) gm/dL Hct (39.0-53.0) % MCHC (31.0-37.0) g/dL Neutrophils # (1.3-7.7) k/uL Lymphocytes # (1.0-4.8) k/uL ABG pH (7.35-7.45) ABG pCO2 (35-45) mmHg ABG pO2 (83-108) mmHg ABG HCO3 (21-25) mmol/L ABG Total CO2 (19-24) mmol/L ABG O2 Saturation (94-97) % ABG Hematocrit (34.0-46.0) % ABG Lactic Acid (0.5-1.6) mmol/L Hemoglobin (13.0-17.5) gm/dL Sodium 135 L (137-145) mmol/L Chloride (98-107) mmol/L BUN (9-20) mg/dL Creatinine 0.50 L (0.66-1.25) mg/dL Glucose 116 H (74-99) mg/dL POC Glucose (mg/dL) 108 H 107 H (75-99) mg/dL Calcium (8.4-10.2) mg/dL Total Protein 5.7 L (6.3-8.2) g/dL Albumin (3.5-5.0) g/dL Crossmatch 05/21/21 05/21/21 05/21/21 Range/Units 06:05 07:17 08:54 WBC (3.8-10.6) k/uL RBC (4.30-5.90) m/uL Hgb (13.0-17.5) gm/dL Hct (39.0-53.0) % MCHC (31.0-37.0) g/dL Neutrophils # (1.3-7.7) k/uL Lymphocytes # (1.0-4.8) k/uL ABG pH (7.35-7.45) ABG pCO2 (35-45) mmHg ABG pO2 (83-108) mmHg ABG HCO3 (21-25) mmol/L ABG Total CO2 (19-24) mmol/L ABG O2 Saturation (94-97) % ABG Hematocrit (34.0-46.0) % ABG Lactic Acid (0.5-1.6) mmol/L Hemoglobin (13.0-17.5) gm/dL Sodium (137-145) mmol/L Chloride (98-107) mmol/L BUN (9-20) mg/dL Creatinine (0.66-1.25) mg/dL Glucose (74-99) mg/dL POC Glucose (mg/dL) 114 H 126 H 128 H (75-99) mg/dL Calcium (8.4-10.2) mg/dL Total Protein (6.3-8.2) g/dL Albumin (3.5-5.0) g/dL Crossmatch 05/21/21 Range/Units 10:15 WBC (3.8-10.6) k/uL RBC (4.30-5.90) m/uL Hgb (13.0-17.5) gm/dL Hct (39.0-53.0) % MCHC (31.0-37.0) g/dL Neutrophils # (1.3-7.7) k/uL Lymphocytes # (1.0-4.8) k/uL ABG pH (7.35-7.45) ABG pCO2 (35-45) mmHg ABG pO2 (83-108) mmHg ABG HCO3 (21-25) mmol/L ABG Total CO2 (19-24) mmol/L ABG O2 Saturation (94-97) % ABG Hematocrit (34.0-46.0) % ABG Lactic Acid (0.5-1.6) mmol/L Hemoglobin (13.0-17.5) gm/dL Sodium (137-145) mmol/L Chloride (98-107) mmol/L BUN (9-20) mg/dL Creatinine (0.66-1.25) mg/dL Glucose (74-99) mg/dL POC Glucose (mg/dL) 106 H (75-99) mg/dL Calcium (8.4-10.2) mg/dL Total Protein (6.3-8.2) g/dL Albumin (3.5-5.0) g/dL Crossmatch Microbiology - Last 24 Hours (Table) 05/19/21 17:18 Nasal Screen MRSA/MSSA - Final Nasopharyngeal Swab Assessment and Plan Assessment: 1 Unstable angina with significant multivessel coronary artery disease. Status post off-pump CABG 3 with STOCKTON to LAD, OM and saphenous vein graft to the posterior lateral branch with endovascular vein harvest and ligation of the left atrial appendage. Post op day #1. 2 History of coronary artery disease with previous stent placement 2005. 3 Chronic and ongoing tobacco dependence of greater than 30 years. 4 Chronic obstructive pulmonary disease with FEV1 value is 35% of predicted. 4 Peripheral arterial disease with intermittent claudication, maintained on Xarelto. 5 Hypertension. 6 Hyperlipidemia. Plan: Plan dated 05/21/2021. Currently, the patient appears to be doing reasonably well. We do encourage him to continue with deep breathing, coughing, and clearing of secretions. This is very important. Also, we want him to use incentive spirometer every hour while awake. The patient was able to be extubated within 4 hours after leaving the operating room. This is good, because, his lung function were not so good because of all of his previous tobacco use. Labs, x-rays, and medications are all reviewed. We will continue to follow make recommendations where appropriate. Time with Patient: Greater than 30
[2021-05-21 11:48] LABS: Glucose,Whole Blood 100 mg/dL (75-99)
[2021-05-21] MEDS: INSULIN ASPART (NovoLOG) 100 UNIT/ML VIAL SQ SCH ×3 (11:52→22:19)
--- NOTE | 2021-05-21 12:40 | P.PN ---
Subjective Progress Note Date: 05/21/21 Principal diagnosis: Unstable angina Doing well, only having some bilateral lower chest pain at the chest tubes sites. No fevers or chills. No sob. Objective - Vital Signs Vital signs: Vital Signs Temp 98.4 F 05/21/21 08:00 Pulse 73 05/21/21 11:00 Resp 18 05/21/21 11:00 BP 104/66 05/21/21 11:00 Pulse Ox 96 05/21/21 11:00 Intake & Output 05/20/21 05/21/21 05/21/21 18:59 06:59 18:59 Intake Total 495.728 5870.096 1000.838 Output Total 2365 1468 323 Balance -1892.324 -176.904 677.838 Weight 79.5 kg Intake: IV 438.5 1077.0 399.5 0.9 SODIUM CHLORIDE 49 99 18 PRESSURE BAG ACETAMINOPHEN IV (For NPO 100 ) 1,000 mg In Empty Bag 1 bag @ 400 mls/hr IVPB Q6HR [facility] Rx#:[id number] CARDIAC OUTPUT 50 210 Lactated Ringers 1,000 ml 275 600 130 @ 20 mls/hr IV .Q24H [facility] Rx#:[id number] Magnesium Sulfate-D5w Pmx 200 1 gm In Dextrose/Water 1 100ml.bag @ 100 mls/hr IVPB Q1H [facility] Rx#: [id number] Nitroglycerin-D5w Pmx 50 8.5 18.0 1.5 mg In Dextrose/Water 1 250ml.bag @ 5 MCG/MIN 1.5 mls/hr IV .Q24H [facility] Rx#: [id number] ceFAZolin 2 gm In Sodium 50 50 50 Chloride 0.9% 50 ml @ 100 mls/hr IVPB ONCE ONE Rx# :[id number] Intake, IV Titration 34.176 14.096 1.338 Amount Clevidipine Butyrate 25 26.500 8.667 mg In Empty Bag 1 bag @ 1 MG/HR 2 mls/hr IV .Q24H [facility] Rx#:[id number] Insulin Regular 100 unit 5.429 1.338 In Sodium Chloride 0.9% 100 ml @ Per Protocol IV .Q0M [facility] Rx#:[id number] propofoL 1,000 mg In 7.676 Empty Bag 1 bag @ Titrate IV .Q0M [facility] Rx#: [id number] Oral 200 600 Output: Chest Tube Drainage 275 446 150 Chest Tube Left Lateral 35 201 80 Chest Chest Tube Mediastinal 215 170 50 Chest Tube Right Lateral 25 75 20 Chest Urine 1340 1022 173 Estimated Blood Loss 750 Other: Voiding Method Indwelling Catheter Indwelling Catheter Indwelling Catheter ABP, PAP, CO, CI - Last Documented Arterial Blood Pressure 95/66 Pulmonary Artery Pressure 23/10 Cardiac Output 5.7 Cardiac Index 2.9 - Exam Constitutional: no acute distress Eyes:Anicteric sclerae, moist conjunctiva, no lid-lag, PERRLA, ENMT: Oropharynx clear, no erythema, exudates Neck: Supple, FROM, no masses, or JVD, No carotid bruits, No thyromegaly Lungs: Clear to auscultation, Clear to percussion, Normal respiratory effort, no accessory muscle use Cardiovascular: Heart regular in rate and rhythm, No murmurs, gallops, or rubs, No peripheral edema Abdominal: Soft, Nontender, no guarding, rebound or rigidity, Normoactive bowel sounds, No hepatomegaly, No splenomegaly, No palpable mass Skin: Normal temperature, tone, texture, turgor, no induration, No subcutaneous nodules, No rash, lesions, No ulcers Extremities: No digital cyanosis, No clubbing, Pedal pulses intact and symmetrical, Radial pulses intact and symmetrical, No calf tenderness Neuro: not focal. Alert and oriented times 3 - Labs CBC & Chem 7: 05/21/21 03:12 05/21/21 03:12 Labs: Abnormal Lab Results - Last 24 Hours (Table) 05/19/21 05/20/21 05/20/21 Range/Units 16:07 09:10 10:31 WBC (3.8-10.6) k/uL RBC (4.30-5.90) m/uL Hgb (13.0-17.5) gm/dL Hct (39.0-53.0) % MCHC (31.0-37.0) g/dL Neutrophils # (1.3-7.7) k/uL Lymphocytes # (1.0-4.8) k/uL ABG pH (7.35-7.45) ABG pCO2 (35-45) mmHg ABG pO2 225 H 260 H (83-108) mmHg ABG HCO3 26 H 26 H (21-25) mmol/L ABG Total CO2 27 H 27 H (19-24) mmol/L ABG O2 Saturation 99.9 H 100.0 H (94-97) % ABG Hematocrit 30 L 28 L (34.0-46.0) % ABG Lactic Acid (0.5-1.6) mmol/L Hemoglobin 9.7 L 9.1 L (13.0-17.5) gm/dL Sodium (137-145) mmol/L Chloride (98-107) mmol/L BUN (9-20) mg/dL Creatinine (0.66-1.25) mg/dL Glucose (74-99) mg/dL POC Glucose (mg/dL) (75-99) mg/dL Calcium (8.4-10.2) mg/dL Total Protein (6.3-8.2) g/dL Albumin (3.5-5.0) g/dL Crossmatch See Detail 05/20/21 05/20/21 05/20/21 Range/Units 11:23 11:58 12:30 WBC (3.8-10.6) k/uL RBC (4.30-5.90) m/uL Hgb (13.0-17.5) gm/dL Hct (39.0-53.0) % MCHC (31.0-37.0) g/dL Neutrophils # (1.3-7.7) k/uL Lymphocytes # (1.0-4.8) k/uL ABG pH 7.34 L 7.33 L 7.34 L (7.35-7.45) ABG pCO2 47 H 48 H 47 H (35-45) mmHg ABG pO2 270 H 276 H 258 H (83-108) mmHg ABG HCO3 26 H (21-25) mmol/L ABG Total CO2 27 H 26 H 27 H (19-24) mmol/L ABG O2 Saturation 99.9 H 99.9 H 99.7 H (94-97) % ABG Hematocrit 26 L 25 L 22 L (34.0-46.0) % ABG Lactic Acid 0.4 L (0.5-1.6) mmol/L Hemoglobin 8.5 L 8.0 L 7.3 L (13.0-17.5) gm/dL Sodium (137-145) mmol/L Chloride (98-107) mmol/L BUN (9-20) mg/dL Creatinine (0.66-1.25) mg/dL Glucose (74-99) mg/dL POC Glucose (mg/dL) (75-99) mg/dL Calcium (8.4-10.2) mg/dL Total Protein (6.3-8.2) g/dL Albumin (3.5-5.0) g/dL Crossmatch 05/20/21 05/20/21 05/20/21 Range/Units 13:00 13:30 13:30 WBC (3.8-10.6) k/uL RBC 3.32 L (4.30-5.90) m/uL Hgb 8.4 L D (13.0-17.5) gm/dL Hct 27.4 L (39.0-53.0) % MCHC 30.7 L (31.0-37.0) g/dL Neutrophils # 7.8 H (1.3-7.7) k/uL Lymphocytes # (1.0-4.8) k/uL ABG pH (7.35-7.45) ABG pCO2 (35-45) mmHg ABG pO2 180 H (83-108) mmHg ABG HCO3 (21-25) mmol/L ABG Total CO2 26 H (19-24) mmol/L ABG O2 Saturation 99.5 H (94-97) % ABG Hematocrit 24 L (34.0-46.0) % ABG Lactic Acid (0.5-1.6) mmol/L Hemoglobin 7.9 L (13.0-17.5) gm/dL Sodium (137-145) mmol/L Chloride 110 H (98-107) mmol/L BUN 8 L (9-20) mg/dL Creatinine 0.56 L (0.66-1.25) mg/dL Glucose (74-99) mg/dL POC Glucose (mg/dL) (75-99) mg/dL Calcium 7.9 L (8.4-10.2) mg/dL Total Protein 4.7 L (6.3-8.2) g/dL Albumin 2.8 L (3.5-5.0) g/dL Crossmatch 05/20/21 05/20/21 05/20/21 Range/Units 13:45 14:07 15:12 WBC (3.8-10.6) k/uL RBC (4.30-5.90) m/uL Hgb (13.0-17.5) gm/dL Hct (39.0-53.0) % MCHC (31.0-37.0) g/dL Neutrophils # (1.3-7.7) k/uL Lymphocytes # (1.0-4.8) k/uL ABG pH 7.33 L (7.35-7.45) ABG pCO2 48 H (35-45) mmHg ABG pO2 >400 H (83-108) mmHg ABG HCO3 (21-25) mmol/L ABG Total CO2 27 H (19-24) mmol/L ABG O2 Saturation 99.7 H (94-97) % ABG Hematocrit (34.0-46.0) % ABG Lactic Acid (0.5-1.6) mmol/L Hemoglobin (13.0-17.5) gm/dL Sodium (137-145) mmol/L Chloride (98-107) mmol/L BUN (9-20) mg/dL Creatinine (0.66-1.25) mg/dL Glucose (74-99) mg/dL POC Glucose (mg/dL) 100 H 106 H (75-99) mg/dL Calcium (8.4-10.2) mg/dL Total Protein (6.3-8.2) g/dL Albumin (3.5-5.0) g/dL Crossmatch 05/20/21 05/20/21 05/20/21 Range/Units 16:04 17:02 17:24 WBC (3.8-10.6) k/uL RBC (4.30-5.90) m/uL Hgb (13.0-17.5) gm/dL Hct (39.0-53.0) % MCHC (31.0-37.0) g/dL Neutrophils # (1.3-7.7) k/uL Lymphocytes # (1.0-4.8) k/uL ABG pH 7.24 L (7.35-7.45) ABG pCO2 60 H (35-45) mmHg ABG pO2 82 L (83-108) mmHg ABG HCO3 26 H (21-25) mmol/L ABG Total CO2 28 H (19-24) mmol/L ABG O2 Saturation (94-97) % ABG Hematocrit (34.0-46.0) % ABG Lactic Acid (0.5-1.6) mmol/L Hemoglobin (13.0-17.5) gm/dL Sodium (137-145) mmol/L Chloride (98-107) mmol/L BUN (9-20) mg/dL Creatinine (0.66-1.25) mg/dL Glucose (74-99) mg/dL POC Glucose (mg/dL) 116 H 128 H (75-99) mg/dL Calcium (8.4-10.2) mg/dL Total Protein (6.3-8.2) g/dL Albumin (3.5-5.0) g/dL Crossmatch 05/20/21 05/20/21 05/20/21 Range/Units 17:30 17:49 18:53 WBC 16.3 H (3.8-10.6) k/uL RBC 3.76 L (4.30-5.90) m/uL Hgb 9.6 L (13.0-17.5) gm/dL Hct 32.1 L (39.0-53.0) % MCHC 29.9 L (31.0-37.0) g/dL Neutrophils # 14.1 H (1.3-7.7) k/uL Lymphocytes # (1.0-4.8) k/uL ABG pH (7.35-7.45) ABG pCO2 (35-45) mmHg ABG pO2 (83-108) mmHg ABG HCO3 (21-25) mmol/L ABG Total CO2 (19-24) mmol/L ABG O2 Saturation (94-97) % ABG Hematocrit (34.0-46.0) % ABG Lactic Acid (0.5-1.6) mmol/L Hemoglobin (13.0-17.5) gm/dL Sodium (137-145) mmol/L Chloride (98-107) mmol/L BUN (9-20) mg/dL Creatinine (0.66-1.25) mg/dL Glucose (74-99) mg/dL POC Glucose (mg/dL) 136 H 122 H (75-99) mg/dL Calcium (8.4-10.2) mg/dL Total Protein (6.3-8.2) g/dL Albumin (3.5-5.0) g/dL Crossmatch 05/20/21 05/20/21 05/20/21 Range/Units 20:04 20:15 21:07 WBC 14.4 H (3.8-10.6) k/uL RBC 3.77 L (4.30-5.90) m/uL Hgb 9.6 L (13.0-17.5) gm/dL Hct 31.4 L (39.0-53.0) % MCHC 30.7 L (31.0-37.0) g/dL Neutrophils # 13.1 H (1.3-7.7) k/uL Lymphocytes # 0.6 L (1.0-4.8) k/uL ABG pH (7.35-7.45) ABG pCO2 (35-45) mmHg ABG pO2 (83-108) mmHg ABG HCO3 (21-25) mmol/L ABG Total CO2 (19-24) mmol/L ABG O2 Saturation (94-97) % ABG Hematocrit (34.0-46.0) % ABG Lactic Acid (0.5-1.6) mmol/L Hemoglobin (13.0-17.5) gm/dL Sodium (137-145) mmol/L Chloride (98-107) mmol/L BUN (9-20) mg/dL Creatinine (0.66-1.25) mg/dL Glucose (74-99) mg/dL POC Glucose (mg/dL) 123 H 118 H (75-99) mg/dL Calcium (8.4-10.2) mg/dL Total Protein (6.3-8.2) g/dL Albumin (3.5-5.0) g/dL Crossmatch 05/20/21 05/20/21 05/21/21 Range/Units 22:10 23:00 00:03 WBC (3.8-10.6) k/uL RBC (4.30-5.90) m/uL Hgb (13.0-17.5) gm/dL Hct (39.0-53.0) % MCHC (31.0-37.0) g/dL Neutrophils # (1.3-7.7) k/uL Lymphocytes # (1.0-4.8) k/uL ABG pH (7.35-7.45) ABG pCO2 (35-45) mmHg ABG pO2 (83-108) mmHg ABG HCO3 (21-25) mmol/L ABG Total CO2 (19-24) mmol/L ABG O2 Saturation (94-97) % ABG Hematocrit (34.0-46.0) % ABG Lactic Acid (0.5-1.6) mmol/L Hemoglobin (13.0-17.5) gm/dL Sodium (137-145) mmol/L Chloride (98-107) mmol/L BUN (9-20) mg/dL Creatinine (0.66-1.25) mg/dL Glucose (74-99) mg/dL POC Glucose (mg/dL) 116 H 116 H 119 H (75-99) mg/dL Calcium (8.4-10.2) mg/dL Total Protein (6.3-8.2) g/dL Albumin (3.5-5.0) g/dL Crossmatch 05/21/21 05/21/21 05/21/21 Range/Units 02:07 03:10 03:12 WBC 17.3 H (3.8-10.6) k/uL RBC 3.96 L (4.30-5.90) m/uL Hgb 10.2 L (13.0-17.5) gm/dL Hct 33.1 L (39.0-53.0) % MCHC 30.7 L (31.0-37.0) g/dL Neutrophils # 15.6 H (1.3-7.7) k/uL Lymphocytes # 0.8 L (1.0-4.8) k/uL ABG pH (7.35-7.45) ABG pCO2 (35-45) mmHg ABG pO2 (83-108) mmHg ABG HCO3 (21-25) mmol/L ABG Total CO2 (19-24) mmol/L ABG O2 Saturation (94-97) % ABG Hematocrit (34.0-46.0) % ABG Lactic Acid (0.5-1.6) mmol/L Hemoglobin (13.0-17.5) gm/dL Sodium (137-145) mmol/L Chloride (98-107) mmol/L BUN (9-20) mg/dL Creatinine (0.66-1.25) mg/dL Glucose (74-99) mg/dL POC Glucose (mg/dL) 110 H 121 H (75-99) mg/dL Calcium (8.4-10.2) mg/dL Total Protein (6.3-8.2) g/dL Albumin (3.5-5.0) g/dL Crossmatch 05/21/21 05/21/21 05/21/21 Range/Units 03:12 04:08 05:17 WBC (3.8-10.6) k/uL RBC (4.30-5.90) m/uL Hgb (13.0-17.5) gm/dL Hct (39.0-53.0) % MCHC (31.0-37.0) g/dL Neutrophils # (1.3-7.7) k/uL Lymphocytes # (1.0-4.8) k/uL ABG pH (7.35-7.45) ABG pCO2 (35-45) mmHg ABG pO2 (83-108) mmHg ABG HCO3 (21-25) mmol/L ABG Total CO2 (19-24) mmol/L ABG O2 Saturation (94-97) % ABG Hematocrit (34.0-46.0) % ABG Lactic Acid (0.5-1.6) mmol/L Hemoglobin (13.0-17.5) gm/dL Sodium 135 L (137-145) mmol/L Chloride (98-107) mmol/L BUN (9-20) mg/dL Creatinine 0.50 L (0.66-1.25) mg/dL Glucose 116 H (74-99) mg/dL POC Glucose (mg/dL) 108 H 107 H (75-99) mg/dL Calcium (8.4-10.2) mg/dL Total Protein 5.7 L (6.3-8.2) g/dL Albumin (3.5-5.0) g/dL Crossmatch 05/21/21 05/21/21 05/21/21 Range/Units 06:05 07:17 08:54 WBC (3.8-10.6) k/uL RBC (4.30-5.90) m/uL Hgb (13.0-17.5) gm/dL Hct (39.0-53.0) % MCHC (31.0-37.0) g/dL Neutrophils # (1.3-7.7) k/uL Lymphocytes # (1.0-4.8) k/uL ABG pH (7.35-7.45) ABG pCO2 (35-45) mmHg ABG pO2 (83-108) mmHg ABG HCO3 (21-25) mmol/L ABG Total CO2 (19-24) mmol/L ABG O2 Saturation (94-97) % ABG Hematocrit (34.0-46.0) % ABG Lactic Acid (0.5-1.6) mmol/L Hemoglobin (13.0-17.5) gm/dL Sodium (137-145) mmol/L Chloride (98-107) mmol/L BUN (9-20) mg/dL Creatinine (0.66-1.25) mg/dL Glucose (74-99) mg/dL POC Glucose (mg/dL) 114 H 126 H 128 H (75-99) mg/dL Calcium (8.4-10.2) mg/dL Total Protein (6.3-8.2) g/dL Albumin (3.5-5.0) g/dL Crossmatch 05/21/21 05/21/21 Range/Units 10:15 11:46 WBC (3.8-10.6) k/uL RBC (4.30-5.90) m/uL Hgb (13.0-17.5) gm/dL Hct (39.0-53.0) % MCHC (31.0-37.0) g/dL Neutrophils # (1.3-7.7) k/uL Lymphocytes # (1.0-4.8) k/uL ABG pH (7.35-7.45) ABG pCO2 (35-45) mmHg ABG pO2 (83-108) mmHg ABG HCO3 (21-25) mmol/L ABG Total CO2 (19-24) mmol/L ABG O2 Saturation (94-97) % ABG Hematocrit (34.0-46.0) % ABG Lactic Acid (0.5-1.6) mmol/L Hemoglobin (13.0-17.5) gm/dL Sodium (137-145) mmol/L Chloride (98-107) mmol/L BUN (9-20) mg/dL Creatinine (0.66-1.25) mg/dL Glucose (74-99) mg/dL POC Glucose (mg/dL) 106 H 100 H (75-99) mg/dL Calcium (8.4-10.2) mg/dL Total Protein (6.3-8.2) g/dL Albumin (3.5-5.0) g/dL Crossmatch Microbiology - Last 24 Hours (Table) 05/19/21 17:18 Nasal Screen MRSA/MSSA - Final Nasopharyngeal Swab Assessment and Plan Plan: Unstable angina, severe coronary artery disease S/p cabg X3 on 05/20 Continue aspirin, statin, Plavix, beta gayle therapy Statin changed to Lipitor 80 mg daily. Cardiothoracic surgery following Peripheral arterial disease with intermittent claudication. Maintained on Xarelto Chronic Essential hypertension Hyperlipidemia GERD Chronic and ongoing tobacco dependence of greater than 30 years All stable Continue home meds
[2021-05-21 14:00] VITALS: BMI 25.1
[2021-05-21] MEDS: HYDROcodone/APAP 7.5-325MG 1 EACH TAB PO PRN ×2 (15:16→22:18)
[2021-05-21 16:47] LABS: Glucose,Whole Blood 120 mg/dL (75-99)
[2021-05-21] MEDS ORDERED: SODIUM BICARB 8.4% 50 ML SYR (1 MEQ/ML) IV STA (20:16)
[2021-05-21 21:57] LABS: Glucose,Whole Blood 149 mg/dL (75-99)
[2021-05-21] MEDS: SENNOSIDES-DOCUSATE SODIUM 1 EACH TAB PO SCH (22:19)
[2021-05-22] MEDS: KETOROLAC 15 MG/ML 1 ML VIAL IVP SCH ×4 (01:06→17:44)
[2021-05-22] MEDS: HEPARIN SODIUM,PORCINE/PF 5,000 UNIT/0.5 ML SYRINGE SQ SCH ×3 (01:06→16:24)
[2021-05-22 04:53] LABS: Basophils % (A) 0 %; Eosinophils # (A) 0.1 k/uL (0-0.7); Eosinophils % (A) 1 %; HCT 27.5 % (39.0-53.0); Hypochromasia Moderate; Lymphocytes # (A) 1.1 k/uL (1.0-4.8); Lymphocytes % (A) 9 %; MCH 25.6 pg (25.0-35.0); MCV 82.6 fL (80.0-100.0); Mean Platelet Volume 7.6; Monocytes # (A) 0.8 k/uL (0-1.0); Monocytes % (A) 6 %; Neutrophils # (A) 10.4 k/uL (1.3-7.7); Neutrophils % (A) 83 %; Platelet Count 218 k/uL (150-450); RBC 3.33 m/uL (4.30-5.90); RDW 14.6 % (11.5-15.5); WBC 12.5 k/uL (3.8-10.6)
[2021-05-22 05:10] LABS: HGB 8.5 gm/dL (13.0-17.5)
[2021-05-22 05:10] LABS: ALT 20 U/L (4-49); AST 46 U/L (17-59); African American GFR (CKD) >90 (>60 ml/min/1.73 sqM); Albumin 2.9 g/dL (3.5-5.0); Alkaline Phosphatase 53 U/L (38-126); Anion Gap 4 mmol/L; Blood Urea Nitrogen 15 mg/dL (9-20); Calcium 8.3 mg/dL (8.4-10.2); Carbon Dioxide 29 mmol/L (22-30); Chloride 100 mmol/L (98-107); Glucose 101 mg/dL (74-99); Magnesium 2.4 mg/dL (1.6-2.3); Non-African American GFR(CKD) >90 (>60 ml/min/1.73 sqM); Potassium 3.7 mmol/L (3.5-5.1); Sodium 133 mmol/L (137-145); Total Bilirubin 0.2 mg/dL (0.2-1.3); Total Protein 4.9 g/dL (6.3-8.2)
[2021-05-22] MEDS: HYDROcodone/APAP 7.5-325MG 1 EACH TAB PO PRN ×2 (05:32→16:24)
[2021-05-22 07:14] LABS: Glucose,Whole Blood 116 mg/dL (75-99)
[2021-05-22] MEDS: THIAMINE 100 MG TAB PO SCH ×2 (07:16→17:46)
[2021-05-22] MEDS: PANTOPRAZOLE 40 MG TABLET PO SCH (07:16)
[2021-05-22] MEDS: INSULIN ASPART (NovoLOG) 100 UNIT/ML VIAL SQ SCH ×4 (07:16→20:32)
--- NOTE | 2021-05-22 07:40 | XR ---
EXAMINATION TYPE: XR chest 1V portable DATE OF EXAM: 05/22/2021 COMPARISON: 05/21/2021 and prior HISTORY: 60 years Male. STUDY INDICATION GIVEN: Postoperative cardiac surgery TECHNIQUE: Multiple AP semiupright chest radiograph FINDINGS AND IMPRESSION: Right thoracostomy tube projects over the upper third of the right hemithorax. Left thoracostomy tube projects over the lower third of the left hemithorax. Both appear stable in position. Apical bilateral right greater than left pneumothorax are again seen. No significant change since emilia or. Right jugular CVC tip ejects over the superior vena cava. Catheter or drain coursing from inferior aspect projecting over the middle mediastinum stable in posi tion. Bancroft-Nicko catheter appears to have been removed in the interval. Bibasilar left greater than right opacities again demonstrated, slightly improved could be on the bas is of infiltrate or atelectasis. Stable flattening of the hemidiaphragm may be related COPD/ emphysema. No pleural effusion. No acute osseous abnormality. Cardiac and mediastinal surgery changes are stable.
[2021-05-22] MEDS: IPRATROPIUM-ALBUTEROL 3 ML NEB INHALATION SCH ×4 (08:14→19:53)
--- NOTE | 2021-05-22 08:35 | PN ---
PROGRESS NOTE Mr. Antony is a 60-year-old male who underwent coronary artery bypass grafting. He is complaining of back discomfort, but his breathing is stable. He continued to be in sinus mechanism. He denies any symptoms of chest pain. He denies any dizziness or palpitation. He denies any nausea. Hemodynamically, he is stable. He received a STOCKTON to the obtuse marginal branch and JAYSON to the LAD. He continues to be at this time on aspirin once a day, Lipitor 40 mg daily, Plavix 75 mg daily, metoprolol tartrate 25 mg twice a day. PHYSICAL EXAMINATION: VITAL SIGNS: Blood pressure 118/58 with a heart rate 70. LUNGS: Lungs with mild decrease in breath sounds, no wheezes. HEART: Regular rate and rhythm ,S1-S2, no S3 and no rub. ABDOMEN: Soft and nontender. EXTREMITIES: No edema. LAB DATA: Lab data revealed BUN and creatinine 16 and 0.63, potassium 3.7. IMPRESSION: 1. Status post coronary bypass grafting, stable. 2. Hyperlipidemia. 3. History of carotid disease. 4. Chronic obstructive lung disease. 5. Prior history of tobacco intake. RECOMMENDATION: From the cardiac standpoint, will continue present therapy. Continue to increase activity and continue incentive spirometry and depending on his progress further recommendations will be made. MMODL / IJN: [id number] /
[2021-05-22] MEDS: FOLIC ACID 1 MG TAB PO SCH (09:08)
[2021-05-22] MEDS: ASPIRIN 325 MG TAB PO SCH (09:08)
[2021-05-22] MEDS: METOPROLOL TARTRATE 25 MG TAB PO SCH ×2 (09:08→20:31)
[2021-05-22] MEDS: CLOPIDOGREL 75 MG TAB PO SCH (09:08)
[2021-05-22] MEDS: ATORVASTATIN 40 MG TAB PO SCH (09:08)
[2021-05-22] MEDS: MUPIROCIN 2% OINT 22 GM TUBE NASAL SCH ×2 (09:12→20:31)
[2021-05-22] MEDS ORDERED: FUROSEMIDE 10 MG/ML 4 ML VIAL IV STA (09:48)
[2021-05-22] MEDS ORDERED: POTASSIUM CHLORIDE ER 20 MEQ TAB.ER PO STA (09:48)
--- NOTE | 2021-05-22 10:07 | P.PN ---
Subjective Progress Note Date: 05/22/21 Principal diagnosis: Symptomatic multivessel coronary artery disease. Past medical history significant for coronary artery disease with PCI in 2006 to the circumflex coronary artery, intermittent claudication with PAD on Xarelto as an outpatient, hypertension, hyperlipidemia, bilateral internal carotid artery stenosis 50-79%, GERD, chronic ongoing tobacco dependence, almost daily EtOH use with 4-5 beers daily and family history of coronary artery disease. POD #2 off-pump coronary artery bypass graft 3 with right internal mammary artery to the left anterior descending artery, left internal mammary artery to the obtuse marginal, and a reverse greater saphenous vein graft to the posterior lateral branch, endovascular vein harvest of the left thigh and upper portion of the lower leg, ligation of the left atrial appendage with 40 mm AtriCure clip. Postoperative acute blood loss anemia, expected given hemodilution and preoperative anemia. The patient was seen in follow-up today 05/22/2021 at his bedside in the intensive care unit. Currently he is sitting up to the bedside chair, is awake, alert and oriented 3 and is in no acute apparent distress. He denies any complaints of shortness of breath although was complaining of some surgical type pain to his chest tube insertion sites with taking a deep breath. Oxygen saturations are 96% on room air and he is achieving 750-1000 mL on his incentive spirometry with encouragement. Bedside telemetry showing normal sinus rhythm heart rate 81 BPM. Mediastinal, left and right pleural chest tubes remain in place to low continuous wall suction -20 cm H2O. No air leak is present. Draining thin serosanguineous drainage. Marie catheter remains in place for accurate I's and O's. He remains hemodynamically stable and is currently on no inotropic pressor support. Objective - Vital Signs Vital signs: Vital Signs Temp 97.5 F L 05/22/21 04:00 Pulse 81 05/22/21 08:27 Resp 24 05/22/21 07:00 BP 118/58 05/22/21 07:00 Pulse Ox 93 L 05/22/21 07:00 Intake & Output 05/21/21 05/22/21 05/22/21 18:59 06:59 18:59 Intake Total 2090.838 940 20 Output Total 798 740 50 Balance 1292.838 200 -30 Weight 79.5 kg 81 kg Intake: IV 539.5 490 20 0.9 SODIUM CHLORIDE 18 PRESSURE BAG Albumin Human 5% 250 ml 250 In Empty Bag 1 bag @ 250 mls/hr IVPB Q1HR PRN Rx#: [id number] Lactated Ringers 1,000 ml 270 240 20 @ 20 mls/hr IV .Q24H [facility] Rx#:[id number] Magnesium Sulfate-D5w Pmx 200 1 gm In Dextrose/Water 1 100ml.bag @ 100 mls/hr IVPB Q1H [facility] Rx#: [id number] Nitroglycerin-D5w Pmx 50 1.5 mg In Dextrose/Water 1 250ml.bag @ 5 MCG/MIN 1.5 mls/hr IV .Q24H [facility] Rx#: [id number] ceFAZolin 2 gm In Sodium 50 Chloride 0.9% 50 ml @ 100 mls/hr IVPB ONCE [facility] Rx# :[id number] Intake, IV Titration 251.338 250 Amount Albumin Human 25% 50 ml 250 250 In Empty Bag 1 bag @ 100 mls/hr IVPB ONCE [facility] Rx#: [id number] Insulin Regular 100 unit 1.338 In Sodium Chloride 0.9% 100 ml @ Per Protocol IV .Q0M [facility] Rx#:[id number] Oral 1300 200 Output: Chest Tube Drainage 410 220 0 Chest Tube Left Lateral 180 110 0 Chest Chest Tube Mediastinal 150 80 0 Chest Tube Right Lateral 80 30 0 Chest Urine 388 520 50 Other: Voiding Method Indwelling Catheter Indwelling Catheter ABP, PAP, CO, CI - Last Documented Arterial Blood Pressure 95/66 Pulmonary Artery Pressure 23/10 Cardiac Output 5.7 Cardiac Index 2.9 - Exam CONSTITUTIONAL: Sitting up to the bedside chair in the intensive care unit, appears comfortable, cooperative, no apparent acute distress. HEENT: Neck is supple, no JVD, no lymphadenopathy. Right IJ Cordis in place and functioning. RESPIRATORY: Lungs sounds essentially clear throughout, diminished to his bilateral bases with few scattered expiratory wheezes. Respirations are symmetrical and nonlabored. Currently on room air with oxygen saturations 96%. Able to achieve 750-1000 mL on his incentive spirometry. Strong cough. CARDIOVASCULAR: Regular rhythm and rate. S1 and S2 present, negative for S3, gallop or murmur. Sternum is stable. Bedside telemetry showing normal sinus rhythm heart rate 81 bpm. Palpable peripheral pulses bilaterally, no edema present to his bilateral lower extremities. No calf pain or tenderness noted. Heart hugger in place with patient demonstrating appropriate use. Knee-high KATTY hose and sequential compression devices in place to his bilateral lower extremities. GASTROINTESTINAL: Abdomen soft, nontender, nondistended. Active bowel sounds present 4 quadrants. Tolerating diet. Passing flatus. No guarding or rigidity. GENITOURINARY: Marie present draining clear, yellow urine. Output 333 mL in the last 8 hours INTEGUMENTARY: Skin is warm and dry with no evidence of clubbing or cyanosis. Midline sternal incision clean dry and well approximated, covered with dry intact dressing. Left lower extremity EVH sites well approximated without redness or drainage. Left arm radial artery harvest sites clean, dry and approximated. No drainage or redness is present. NEUROLOGIC: Cranial nerves II through XII intact. No focal deficits. MUSKULOSKELETAL: Able to move all extremities, strength equal bilaterally, generalized weakness. PSYCHIATRIC: Alert and oriented to person place and time, appropriate affect, intact judgment and insight. INVASIVE LINES AND TUBES: Mediastinal/left and right pleural chest tubes present and connected to low continuous wall suction, no air leaks present. Mediastinal tube with 120 mL of thin serosanguineous drainage overnight, 250 mL output in the last 24 hours. Left pleural chest tube with 110 mL of thin serosanguineous drainage overnight, 300 mL output in the last 24 hours. Right pleural chest tube with 30 mL of thin serosanguineous drainage overnight, 250 mL output in the last 24 hours. - Labs CBC & Chem 7: 05/22/21 04:28 05/22/21 04:45 Labs: Abnormal Lab Results - Last 24 Hours (Table) 05/21/21 05/21/21 05/21/21 Range/Units 10:15 11:46 16:46 WBC (3.8-10.6) k/uL RBC (4.30-5.90) m/uL Hgb (13.0-17.5) gm/dL Hct (39.0-53.0) % Neutrophils # (1.3-7.7) k/uL Sodium (137-145) mmol/L Creatinine (0.66-1.25) mg/dL Glucose (74-99) mg/dL POC Glucose (mg/dL) 106 H 100 H 120 H (75-99) mg/dL Calcium (8.4-10.2) mg/dL Magnesium (1.6-2.3) mg/dL Total Protein (6.3-8.2) g/dL Albumin (3.5-5.0) g/dL 05/21/21 05/22/21 05/22/21 Range/Units 21:55 04:28 04:45 WBC 12.5 H (3.8-10.6) k/uL RBC 3.33 L (4.30-5.90) m/uL Hgb 8.5 L D (13.0-17.5) gm/dL Hct 27.5 L (39.0-53.0) % Neutrophils # 10.4 H (1.3-7.7) k/uL Sodium 133 L (137-145) mmol/L Creatinine 0.63 L (0.66-1.25) mg/dL Glucose 101 H (74-99) mg/dL POC Glucose (mg/dL) 149 H (75-99) mg/dL Calcium 8.3 L (8.4-10.2) mg/dL Magnesium 2.4 H (1.6-2.3) mg/dL Total Protein 4.9 L (6.3-8.2) g/dL Albumin 2.9 L (3.5-5.0) g/dL 05/22/21 Range/Units 07:13 WBC (3.8-10.6) k/uL RBC (4.30-5.90) m/uL Hgb (13.0-17.5) gm/dL Hct (39.0-53.0) % Neutrophils # (1.3-7.7) k/uL Sodium (137-145) mmol/L Creatinine (0.66-1.25) mg/dL Glucose (74-99) mg/dL POC Glucose (mg/dL) 116 H (75-99) mg/dL Calcium (8.4-10.2) mg/dL Magnesium (1.6-2.3) mg/dL Total Protein (6.3-8.2) g/dL Albumin (3.5-5.0) g/dL Assessment and Plan Assessment: 1. Symptomatic multi-vessel coronary artery disease, previous PCI in 2005 to the circumflex coronary artery, status post three-vessel CABG 2. Intermittent claudication with PAD on Xarelto as an outpatient 3. Hypertension 4. Hyperlipidemia, treated, cholesterol 119, LDL 55 5. GERD 6. Current tobacco dependence 7. Severe COPD with preoperative FEV1 35% of predicted 8. Bilateral internal carotid artery stenosis 50-79% 9. Almost daily EtOH use, 4-5 beers daily 10. Family history of coronary artery disease Plan: 1. Continue aspirin, statin, Plavix, and beta gayle. Will increase beta gayle therapy as tolerated. 2. Remove Marie catheter. Continue to record strict inaccurate I's and O's. Continue daily weights. 3. Encourage incentive spirometry 10 times every hour while awake. Bronchodilators per pulmonology management. 4. Increase activity, ambulate as tolerated. PT/OT/cardiac rehab following. 5. Will monitor daily labs and chest x-rays. Electrolyte replacement per protocol. No transfusion. 6. GI/DVT prophylaxis. 7. Pain control with current medication regimen. 8. Insulin management per primary care service. Patient is not diabetic, hemoglobin A1c 6.0%, although patient does need tight blood sugar control to prevent infection and promote sternal union. 9. Continue folic acid, thiamine, CIWA protocol. 10. Discontinue right IJ Cordis. 11. Continue right and left pleural chest tubes to water seal. We will move his mediastinal chest tube today. 12. Lasix 40 mg IV 1 now and potassium chloride 20 mEq by mouth 1 now. 13. The importance of risk modification including smoking cessation was discussed with the patient. 14. We will place transfer orders to cardiac stepdown today. 15. More recommendations to follow based on patient's clinical course. Time with Patient: Greater than 30
[2021-05-22] MEDS ORDERED: FUROSEMIDE 10 MG/ML 4 ML VIAL ONE (10:09)
--- NOTE | 2021-05-22 10:16 | P.PN ---
Subjective Progress Note Date: 05/22/21 Principal diagnosis: Status post bypass grafting. This is a 60-year-old male patient who follows with Dr. Gilman as his primary care provider. He has a history of coronary artery disease with previous stent placement in 2005, peripheral arterial disease and lower extremities, hypertension, hyperlipidemia, gastroesophageal reflux disease, chronic and ongoing tobacco dependence of approximately 30 years. He had recently been the having symptoms of chest discomfort and jaw pain. He presented here electively for cardiac catheterization and was found to have significant multivessel coronary artery disease. The plan is for possible coronary artery bypass surgery tomorrow. He is seen today on the selective care unit. He is awake and alert in no acute distress. Denies any shortness of breath, cough or congestion. He is not been on any maintenance inhalers. FEV1 value is found to be 35% of predicted. Chest x-ray reveals no acute pulmonary process. Maintaining good O2 saturations in the upper 90s on room air. He's been afebrile. Hemodynamically stable. He is educated regarding the use of the incentive spirometer. Nebulized treatments will be ordered. The patient is seen today 05/20/2021 in the intensive care unit shortly after returning from surgery. He received a off-pump CABG 3 with STOCKTON to LAD, OM and saphenous vein graft to the posterior lateral branch with endovascular vein harvest and ligation of the left atrial appendage. He remains intubated on the mechanical ventilator at assist control mode rate of 12, tidal volume 500, FiO2 100% and a PEEP of 5. Arterial blood gases revealed a PaO2 of 400, pCO2 48, pH 7.33. Peak pressure 23, plateau pressure 17. He is under a Rubina hugger. He has a mediastinal, right and left chest tubes in place. He remains on nitroglycerin at 5 mcg/m, propofol at 20 mcg/kg/m, lactated Ringer's at 50 MLS per hour. His potassium is being replaced. Cardiac output 5.0. Cardiac index 2.6. PA pressure 20/10. He is currently in normal sinus rhythm. Chest x-ray reveals no sizable pneumothorax or pleural effusion. White count 9.9. Hemoglobin 8.4. sodium 138. Potassium 4.0. Creatinine 0.56. AST 25. ALT 19. Glucose 100. Remains on bronchodilators. Heparin for DVT prophylaxis. Progress note dated 05/21/2021. This is a 60-year-old male who is postop day #1, status post three-vessel bypass grafting. The patient has been weaned down to room air. He is getting lactated Ringer's at 20 mL an hour, and insulin drip at 0.5 units an hour. He was extubated within 4 hours after leaving the operating room. Clinically he looks well. Sitting in a chair next to his bed. He has no major complaints other than for pain at the surgical site. He is working hard on his deep breathing, coughing, clearing of secretions. He also continues to work hard on the senna spirometer. White count 17.3, hemoglobin 10.2, hematocrit 33.1, platelet count 276,000. Sodium 135, potassium 4.2, chlorides 104, CO2 25, anion gap 6, BUN 10, creatinine 0.5. Chest x-ray shows some typical postoperative changes, with bibasilar atelectasis. Progress note dated 05/22/2021. This is a 60-year-old male, postop day #2, status post three-vessel bypass grafting. The patient has been weaned down to room air. He is receiving lactated Ringer's at 20 mL an hour. The patient is doing very well. He was able to walk the hallway. He was seen by cardiothoracic surgeon today. He denies any shortness of breath, cough, wheezing, phlegm production, chest pain chest discomfort. He is doing very well on his incentive spirometer, and he is encouraged to deep breathe, cough, and clear secretions. White count is 12.5, hemoglobin 8.5, hematocrit 27.5, and platelet count 218,000. Sodium 133, potassium 3.7, chlorides 100, CO2 29, normal anion gap, BUN 15, and creatinine 0.63. Chest x-ray shows only bibasilar infiltrates or atelectasis, typical of the postoperative course of an open-heart patient. Objective - Vital Signs Vital signs: Vital Signs Temp 97.5 F L 05/22/21 04:00 Pulse 81 05/22/21 08:27 Resp 24 05/22/21 07:00 BP 118/58 05/22/21 07:00 Pulse Ox 93 L 05/22/21 07:00 Intake & Output 05/21/21 05/22/21 05/22/21 18:59 06:59 18:59 Intake Total 2090.838 940 20 Output Total 798 740 50 Balance 1292.838 200 -30 Weight 79.5 kg 81 kg Intake: IV 539.5 490 20 0.9 SODIUM CHLORIDE 18 PRESSURE BAG Albumin Human 5% 250 ml 250 In Empty Bag 1 bag @ 250 mls/hr IVPB Q1HR PRN Rx#: [id number] Lactated Ringers 1,000 ml 270 240 20 @ 20 mls/hr IV .Q24H [facility] Rx#:[id number] Magnesium Sulfate-D5w Pmx 200 1 gm In Dextrose/Water 1 100ml.bag @ 100 mls/hr IVPB Q1H [facility] Rx#: [id number] Nitroglycerin-D5w Pmx 50 1.5 mg In Dextrose/Water 1 250ml.bag @ 5 MCG/MIN 1.5 mls/hr IV .Q24H [facility] Rx#: [id number] ceFAZolin 2 gm In Sodium 50 Chloride 0.9% 50 ml @ 100 mls/hr IVPB [facility]CE [facility] Rx# :[id number] Intake, IV Titration 251.338 250 Amount Albumin Human 25% 50 ml 250 250 In Empty Bag 1 bag @ 100 mls/hr IVPB [facility] Rx#: [id number] Insulin Regular 100 unit 1.338 In Sodium Chloride 0.9% 100 ml @ Per Protocol IV .Q0M [facility] Rx#:[id number] Oral 1300 200 Output: Chest Tube Drainage 410 220 0 Chest Tube Left Lateral 180 110 0 Chest Chest Tube Mediastinal 150 80 0 Chest Tube Right Lateral 80 30 0 Chest Urine 388 520 50 Other: Voiding Method Indwelling Catheter Indwelling Catheter ABP, PAP, CO, CI - Last Documented Arterial Blood Pressure 95/66 Pulmonary Artery Pressure 23/10 Cardiac Output 5.7 Cardiac Index 2.9 - Exam No acute distress, oriented 3. Currently, the patient's not requiring any supplemental oxygen HEENT examination is grossly unremarkable. Neck supple. Full range of motion. No adenopathy thyromegaly or neck vein distention. Cardiovascular examination reveals regular rhythm rate. S1-S2 normal. No S3 or S4. No discernible murmur noted. Heart rate 81 bpm. Lungs reveal bilateral scattered rhonchi. No wheezes or crackles. Breath sounds are equal bilaterally. Abdomen soft bowel sounds are heard. No masses or tenderness. Extremities are intact. No cyanosis clubbing or edema. Skin is without rash or lesion. Neurologic examination is brief but nonfocal. - Labs CBC & Chem 7: 05/22/21 04:28 05/22/21 04:45 Labs: Abnormal Lab Results - Last 24 Hours (Table) 05/21/21 05/21/21 05/21/21 Range/Units 10:15 11:46 16:46 WBC (3.8-10.6) k/uL RBC (4.30-5.90) m/uL Hgb (13.0-17.5) gm/dL Hct (39.0-53.0) % Neutrophils # (1.3-7.7) k/uL Sodium (137-145) mmol/L Creatinine (0.66-1.25) mg/dL Glucose (74-99) mg/dL POC Glucose (mg/dL) 106 H 100 H 120 H (75-99) mg/dL Calcium (8.4-10.2) mg/dL Magnesium (1.6-2.3) mg/dL Total Protein (6.3-8.2) g/dL Albumin (3.5-5.0) g/dL 05/21/21 05/22/21 05/22/21 Range/Units 21:55 04:28 04:45 WBC 12.5 H (3.8-10.6) k/uL RBC 3.33 L (4.30-5.90) m/uL Hgb 8.5 L D (13.0-17.5) gm/dL Hct 27.5 L (39.0-53.0) % Neutrophils # 10.4 H (1.3-7.7) k/uL Sodium 133 L (137-145) mmol/L Creatinine 0.63 L (0.66-1.25) mg/dL Glucose 101 H (74-99) mg/dL POC Glucose (mg/dL) 149 H (75-99) mg/dL Calcium 8.3 L (8.4-10.2) mg/dL Magnesium 2.4 H (1.6-2.3) mg/dL Total Protein 4.9 L (6.3-8.2) g/dL Albumin 2.9 L (3.5-5.0) g/dL 05/22/21 Range/Units 07:13 WBC (3.8-10.6) k/uL RBC (4.30-5.90) m/uL Hgb (13.0-17.5) gm/dL Hct (39.0-53.0) % Neutrophils # (1.3-7.7) k/uL Sodium (137-145) mmol/L Creatinine (0.66-1.25) mg/dL Glucose (74-99) mg/dL POC Glucose (mg/dL) 116 H (75-99) mg/dL Calcium (8.4-10.2) mg/dL Magnesium (1.6-2.3) mg/dL Total Protein (6.3-8.2) g/dL Albumin (3.5-5.0) g/dL Assessment and Plan Assessment: 1 Unstable angina with significant multivessel coronary artery disease. Status post off-pump CABG 3 with STOCKTON to LAD, OM and saphenous vein graft to the posterior lateral branch with endovascular vein harvest and ligation of the left atrial appendage. Post op day #2. 2 History of coronary artery disease with previous stent placement 2005. 3 Chronic and ongoing tobacco dependence of greater than 30 years. 4 Chronic obstructive pulmonary disease with FEV1 value is 35% of predicted. 4 Peripheral arterial disease with intermittent claudication, maintained on Xarelto. 5 Hypertension. 6 Hyperlipidemia. Plan: Plan dated 05/21/2021. Currently, the patient appears to be doing reasonably well. We do encourage him to continue with deep breathing, coughing, and clearing of secretions. This is very important. Also, we want him to use incentive spirometer every hour while awake. The patient was able to be extubated within 4 hours after leaving the operating room. This is good, because, his lung function were not so good because of all of his previous tobacco use. Labs, x-rays, and medications are all reviewed. We will continue to follow make recommendations where appropriate. Plan dated 05/22/2021. The patient continues to do very well. The patient's currently on no supplemental oxygen. He is on lactated Ringer's at 20 mL an hour. He was seen by cardiothoracic surgeon today. The patient will apparently be transferred out of the ICU later today. His chest x-ray showing typical postoperative changes. The patient has no major complaints. He is doing better than expected and my opinion. Time with Patient: Less than 30
--- NOTE | 2021-05-22 10:49 | P.PN ---
Subjective Progress Note Date: 05/22/21 Principal diagnosis: Unstable angina Patient still doing very well. No significant pain, no sob. No fevers. Objective - Vital Signs Vital signs: Vital Signs Temp 97.5 F L 05/22/21 04:00 Pulse 81 05/22/21 08:27 Resp 24 05/22/21 07:00 BP 118/58 05/22/21 07:00 Pulse Ox 93 L 05/22/21 07:00 Intake & Output 05/21/21 05/22/21 05/22/21 18:59 06:59 18:59 Intake Total 2090.838 940 20 Output Total 798 740 50 Balance 1292.838 200 -30 Weight 79.5 kg 81 kg Intake: IV 539.5 490 20 0.9 SODIUM CHLORIDE 18 PRESSURE BAG Albumin Human 5% 250 ml 250 In Empty Bag 1 bag @ 250 mls/hr IVPB Q1HR PRN Rx#: [id number] Lactated Ringers 1,000 ml 270 240 20 @ 20 mls/hr IV .Q24H [facility] Rx#:[id number] Magnesium Sulfate-D5w Pmx 200 1 gm In Dextrose/Water 1 100ml.bag @ 100 mls/hr IVPB Q1H [facility] Rx#: [id number] Nitroglycerin-D5w Pmx 50 1.5 mg In Dextrose/Water 1 250ml.bag @ 5 MCG/MIN 1.5 mls/hr IV .Q24H [facility] Rx#: [id number] ceFAZolin 2 gm In Sodium 50 Chloride 0.9% 50 ml @ 100 mls/hr IVPB ONCE [facility] Rx# :[id number] Intake, IV Titration 251.338 250 Amount Albumin Human 25% 50 ml 250 250 In Empty Bag 1 bag @ 100 mls/hr IVPB ONCE [facility] Rx#: [id number] Insulin Regular 100 unit 1.338 In Sodium Chloride 0.9% 100 ml @ Per Protocol IV .Q0M [facility] Rx#:[id number] Oral 1300 200 Output: Chest Tube Drainage 410 220 0 Chest Tube Left Lateral 180 110 0 Chest Chest Tube Mediastinal 150 80 0 Chest Tube Right Lateral 80 30 0 Chest Urine 388 520 50 Other: Voiding Method Indwelling Catheter Indwelling Catheter ABP, PAP, CO, CI - Last Documented Arterial Blood Pressure 95/66 Pulmonary Artery Pressure 23/10 Cardiac Output 5.7 Cardiac Index 2.9 - Exam Constitutional: no acute distress Eyes:Anicteric sclerae, moist conjunctiva, no lid-lag, PERRLA, ENMT: Oropharynx clear, no erythema, exudates Neck: Supple, FROM, no masses, or JVD, No carotid bruits, No thyromegaly Lungs: Clear to auscultation, Clear to percussion, Normal respiratory effort, no accessory muscle use Cardiovascular: Heart regular in rate and rhythm, No murmurs, gallops, or rubs, No peripheral edema Abdominal: Soft, Nontender, no guarding, rebound or rigidity, Normoactive bowel sounds, No hepatomegaly, No splenomegaly, No palpable mass Skin: Normal temperature, tone, texture, turgor, no induration, No subcutaneous nodules, No rash, lesions, No ulcers Extremities: No digital cyanosis, No clubbing, Pedal pulses intact and symmetrical, Radial pulses intact and symmetrical, No calf tenderness Neuro: not focal. Alert and oriented times 3 - Labs CBC & Chem 7: 05/22/21 04:28 05/22/21 04:45 Labs: Abnormal Lab Results - Last 24 Hours (Table) 05/21/21 05/21/21 05/21/21 Range/Units 11:46 16:46 21:55 WBC (3.8-10.6) k/uL RBC (4.30-5.90) m/uL Hgb (13.0-17.5) gm/dL Hct (39.0-53.0) % Neutrophils # (1.3-7.7) k/uL Sodium (137-145) mmol/L Creatinine (0.66-1.25) mg/dL Glucose (74-99) mg/dL POC Glucose (mg/dL) 100 H 120 H 149 H (75-99) mg/dL Calcium (8.4-10.2) mg/dL Magnesium (1.6-2.3) mg/dL Total Protein (6.3-8.2) g/dL Albumin (3.5-5.0) g/dL 05/22/21 05/22/21 05/22/21 Range/Units 04:28 04:45 07:13 WBC 12.5 H (3.8-10.6) k/uL RBC 3.33 L (4.30-5.90) m/uL Hgb 8.5 L D (13.0-17.5) gm/dL Hct 27.5 L (39.0-53.0) % Neutrophils # 10.4 H (1.3-7.7) k/uL Sodium 133 L (137-145) mmol/L Creatinine 0.63 L (0.66-1.25) mg/dL Glucose 101 H (74-99) mg/dL POC Glucose (mg/dL) 116 H (75-99) mg/dL Calcium 8.3 L (8.4-10.2) mg/dL Magnesium 2.4 H (1.6-2.3) mg/dL Total Protein 4.9 L (6.3-8.2) g/dL Albumin 2.9 L (3.5-5.0) g/dL Assessment and Plan Plan: Unstable angina, severe coronary artery disease S/p cabg X3 on 05/20 Continue aspirin, statin, Plavix, beta gayle therapy Statin changed to Lipitor 80 mg daily. Cardiothoracic surgery following Peripheral arterial disease with intermittent claudication. Maintained on Xarelto Chronic Essential hypertension Hyperlipidemia GERD Chronic and ongoing tobacco dependence of greater than 30 years All stable Continue home meds
[2021-05-22 11:21] LABS: Glucose,Whole Blood 112 mg/dL (75-99)
[2021-05-22 16:58] LABS: Glucose,Whole Blood 105 mg/dL (75-99)
[2021-05-22] MEDS: guaiFENesin 600 MG TABLET.ER PO SCH (17:46)
[2021-05-22 20:21] LABS: Glucose,Whole Blood 139 mg/dL (75-99)
[2021-05-22] MEDS: SENNOSIDES-DOCUSATE SODIUM 1 EACH TAB PO SCH (20:31)
[2021-05-23] MEDS: HEPARIN SODIUM,PORCINE/PF 5,000 UNIT/0.5 ML SYRINGE SQ SCH ×4 (00:46→23:18)
[2021-05-23] MEDS: HYDROcodone/APAP 7.5-325MG 1 EACH TAB PO PRN (00:46)
[2021-05-23] MEDS: KETOROLAC 15 MG/ML 1 ML VIAL IVP SCH ×5 (00:47→23:18)
[2021-05-23 04:19] LABS: HCT 28.6 % (39.0-53.0); HGB 8.9 gm/dL (13.0-17.5); Hypochromasia Slight; MCH 25.5 pg (25.0-35.0); MCHC 31.1 g/dL (31.0-37.0); MCV 81.9 fL (80.0-100.0); Mean Platelet Volume 8.5; Platelet Count 256 k/uL (150-450); RBC 3.49 m/uL (4.30-5.90); RDW 14.7 % (11.5-15.5); WBC 14.1 k/uL (3.8-10.6)
[2021-05-23 04:38] LABS: African American GFR (CKD) >90 (>60 ml/min/1.73 sqM); Anion Gap 3 mmol/L; Blood Urea Nitrogen 17 mg/dL (9-20); Calcium 8.5 mg/dL (8.4-10.2); Carbon Dioxide 32 mmol/L (22-30); Chloride 99 mmol/L (98-107); Glucose 112 mg/dL (74-99); Non-African American GFR(CKD) >90 (>60 ml/min/1.73 sqM); Sodium 134 mmol/L (137-145)
[2021-05-23] MEDS: INSULIN ASPART (NovoLOG) 100 UNIT/ML VIAL SQ SCH ×4 (05:59→21:27)
[2021-05-23] MEDS: PANTOPRAZOLE 40 MG TABLET PO SCH (05:59)
[2021-05-23] MEDS: THIAMINE 100 MG TAB PO SCH ×2 (05:59→18:05)
[2021-05-23 06:00] LABS: Glucose,Whole Blood 122 mg/dL (75-99)
--- NOTE | 2021-05-23 07:44 | XR ---
EXAMINATION TYPE: XR chest 1V portable DATE OF EXAM: 05/23/2021 COMPARISON: 05/22/2021 HISTORY: 60 years Male. STUDY INDICATION GIVEN: Postoperative cardiac surgery TECHNIQUE: AP portable chest radiograph FINDINGS AND IMPRESSION: Right jugular CVC catheter no longer seen. Bilateral thoracostomy tubes stable in position. Postsurgical changes in the mediastinum again seen. Enlarged cardiomediastinal silhouette no change since prior study. Mild bilateral pulmonary edema with bibasilar atelectasis and/or pneumonia which appears worse on the left. Overall no significant change since prior. Bony structures are unchanged since yesterday.
[2021-05-23] MEDS: IPRATROPIUM-ALBUTEROL 3 ML NEB INHALATION SCH ×4 (08:06→19:37)
[2021-05-23] MEDS: ATORVASTATIN 40 MG TAB PO SCH (09:17)
[2021-05-23] MEDS: FOLIC ACID 1 MG TAB PO SCH (09:17)
[2021-05-23] MEDS: ASPIRIN 325 MG TAB PO SCH (09:17)
[2021-05-23] MEDS: CLOPIDOGREL 75 MG TAB PO SCH (09:17)
[2021-05-23] MEDS: METOPROLOL TARTRATE 25 MG TAB PO SCH ×2 (09:17→21:23)
[2021-05-23] MEDS: guaiFENesin 600 MG TABLET.ER PO SCH ×2 (09:17→21:23)
[2021-05-23] MEDS: MUPIROCIN 2% OINT 22 GM TUBE NASAL SCH ×2 (09:18→21:27)
--- NOTE | 2021-05-23 10:12 | P.PN ---
Subjective Progress Note Date: 05/23/21 Principal diagnosis: Unstable angina Doing very well. No complaints currently. Has slight chest pain at the tubes sites that is controlled with pain meds. Objective - Vital Signs Vital signs: Vital Signs Temp 98 F 05/23/21 04:00 Pulse 80 05/23/21 08:18 Resp 23 05/23/21 04:00 BP 136/68 05/23/21 04:00 Pulse Ox 95 05/22/21 16:00 Intake & Output 05/22/21 05/23/21 05/23/21 18:59 06:59 18:59 Intake Total 980 200 120 Output Total 2370 535 0 Balance -1390 -335 120 Intake: IV 40 Lactated Ringers 1,000 ml 40 @ 20 mls/hr IV .Q24H [facility] Rx#:[id number] Oral 940 200 120 Output: Chest Tube Drainage 140 135 Chest Tube Left Lateral 80 70 Chest Chest Tube Mediastinal 10 Chest Tube Right Lateral 50 65 Chest Urine 2230 400 0 Stool 0 Other: Voiding Method Indwelling Catheter # Voids 0 0 # Bowel Movements 0 ABP, PAP, CO, CI - Last Documented Arterial Blood Pressure 95/66 Pulmonary Artery Pressure 23/10 Cardiac Output 5.7 Cardiac Index 2.9 - Exam Constitutional: no acute distress Eyes:Anicteric sclerae, moist conjunctiva, no lid-lag, PERRLA, ENMT: Oropharynx clear, no erythema, exudates Neck: Supple, FROM, no masses, or JVD, No carotid bruits, No thyromegaly Lungs: Clear to auscultation, Clear to percussion, Normal respiratory effort, no accessory muscle use Cardiovascular: Heart regular in rate and rhythm, No murmurs, gallops, or rubs, No peripheral edema Abdominal: Soft, Nontender, no guarding, rebound or rigidity, Normoactive bowel sounds, No hepatomegaly, No splenomegaly, No palpable mass Skin: Normal temperature, tone, texture, turgor, no induration, No subcutaneous nodules, No rash, lesions, No ulcers Extremities: No digital cyanosis, No clubbing, Pedal pulses intact and symmetrical, Radial pulses intact and symmetrical, No calf tenderness Neuro: not focal. Alert and oriented times 3 - Labs CBC & Chem 7: 05/23/21 03:59 05/23/21 03:59 Labs: Abnormal Lab Results - Last 24 Hours (Table) 05/22/21 05/22/21 05/22/21 Range/Units 11:19 16:56 20:19 WBC (3.8-10.6) k/uL RBC (4.30-5.90) m/uL Hgb (13.0-17.5) gm/dL Hct (39.0-53.0) % Sodium (137-145) mmol/L Carbon Dioxide (22-30) mmol/L Glucose (74-99) mg/dL POC Glucose (mg/dL) 112 H 105 H 139 H (75-99) mg/dL 05/23/21 05/23/21 05/23/21 Range/Units 03:59 03:59 05:58 WBC 14.1 H (3.8-10.6) k/uL RBC 3.49 L (4.30-5.90) m/uL Hgb 8.9 L (13.0-17.5) gm/dL Hct 28.6 L (39.0-53.0) % Sodium 134 L (137-145) mmol/L Carbon Dioxide 32 H (22-30) mmol/L Glucose 112 H (74-99) mg/dL POC Glucose (mg/dL) 122 H (75-99) mg/dL Assessment and Plan Plan: Unstable angina, severe coronary artery disease S/p cabg X3 on 05/20 Continue aspirin, statin, Plavix, beta gayle therapy Statin changed to Lipitor 80 mg daily. Cardiothoracic surgery following Peripheral arterial disease with intermittent claudication. Maintained on Xarelto Chronic Essential hypertension Hyperlipidemia GERD Chronic and ongoing tobacco dependence of greater than 30 years All stable Continue home meds
[2021-05-23 11:49] LABS: Glucose,Whole Blood 132 mg/dL (75-99)
--- NOTE | 2021-05-23 11:57 | PN ---
PROGRESS NOTE Mr. Antony is a 60 -year-old male with a known history of coronary disease, underwent bypass grafting history and his doing quite well this morning. He is feeling better. He is ambulating. He is denying any chest pain. He denies any dizziness or palpitation. He continues to be in sinus mechanism. His chest tube has been removed. He continues to be at this time on aspirin once a day, Lipitor 40 mg daily, Plavix 75 mg daily, metoprolol tartrate 25 mg twice a day. PHYSICAL EXAMINATION: Blood pressure 107/60 with a heart rate in the 80s. Lungs: Clear. Heart exam S1, S2. No S3. No rub. Abdomen: Soft nontender. Extremities: No edema. LAB DATA: Hemoglobin of 8.9. BUN and creatinine 17 and 0.4. IMPRESSION: 1. Status post coronary artery bypass grafting stable. 2. Hyperlipidemia. 3. Chronic obstructive lung disease. 4. Carotid disease. RECOMMENDATIONS: From the cardiac standpoint, he is stable. We will continue present therapy. Continue ambulation. Hopefully he will be able to be discharged home in the next 24-48 hours. MMODL / IJN: [id number] /
[2021-05-23] MEDS ORDERED: FUROSEMIDE 10 MG/ML 2 ML VIAL IV ONE (11:59)
--- NOTE | 2021-05-23 12:26 | P.PN ---
Subjective Progress Note Date: 05/23/21 Principal diagnosis: Coronary artery disease, status post coronary artery bypass grafting On 05/23/2021 patient seen in follow-up on selective care unit, today is postoperative day #3, status post three-vessel coronary artery bypass grafting. He is currently on room air, pulse ox is 96%, hemodynamically has been stable, he is working on incentive spirometer, today's chest x-ray shows mild bilateral pulmonary edema with bibasilar atelectasis. There was also small pneumothorax noted at the left apex, which radiology did not comment on. Bilateral pleural chest tubes are in place. Left-sided chest tube has been removed, repeat chest x-ray is pending. No significant chest tube output in the last 24 hours. Patient has been voiding. His labs have been noted, with blood cell count is 14.1, hemoglobin is 8.9, sodium is 134, CO2 is 32, and the rest of electrolytes and renal profile were unremarkable. Patient has been tolerating oral diet, no nausea vomiting or diarrhea. Objective - Vital Signs Vital signs: Vital Signs Temp 98.1 F 05/23/21 08:00 Pulse 80 05/23/21 11:57 Resp 18 05/23/21 08:00 BP 107/66 05/23/21 08:00 Pulse Ox 96 05/23/21 08:00 Intake & Output 05/22/21 05/23/21 05/23/21 18:59 06:59 18:59 Intake Total 980 200 120 Output Total 2370 535 0 Balance -1390 -335 120 Intake: IV 40 Lactated Ringers 1,000 ml 40 @ 20 mls/hr IV .Q24H [facility] Rx#:[id number] Oral 940 200 120 Output: Chest Tube Drainage 140 135 Chest Tube Left Lateral 80 70 Chest Chest Tube Mediastinal 10 Chest Tube Right Lateral 50 65 Chest Urine 2230 400 0 Stool 0 Other: Voiding Method Indwelling Catheter Indwelling Catheter # Voids 0 0 # Bowel Movements 0 ABP, PAP, CO, CI - Last Documented Arterial Blood Pressure 95/66 Pulmonary Artery Pressure 23/10 Cardiac Output 5.7 Cardiac Index 2.9 - Exam GENERAL EXAM: Alert, very pleasant, 60-year-old white male, on room air comfortable in no apparent distress. HEAD: Normocephalic/atraumatic. EYES: Normal reaction of pupils, equal size. Conjunctiva pink, sclera white. NOSE: Clear with pink turbinates. THROAT: No erythema or exudates. NECK: No masses, no JVD, no thyroid enlargement, no adenopathy. CHEST: No chest wall deformity. Symmetrical expansion. Sternal incision is clean dry and intact, bilateral chest tube sites clean dry and intact LUNGS: Equal air entry with no crackles, wheeze, rhonchi or dullness. CVS: Regular rate and rhythm, normal S1 and S2, no gallops, no murmurs, no rubs ABDOMEN: Soft, nontender. No hepatosplenomegaly, normal bowel sounds, no guarding or rigidity. EXTREMITIES: No clubbing, no edema, no cyanosis, 2+ pulses and upper and lower extremities. MUSCULOSKELETAL: Muscle strength and tone normal. SPINE: No scoliosis or deformity SKIN: No rashes CENTRAL NERVOUS SYSTEM: Alert and oriented -3. No focal deficits, tone is normal in all 4 extremities. PSYCHIATRIC: Alert and oriented -3. Appropriate affect. Intact judgment and insight. - Labs CBC & Chem 7: 05/23/21 03:59 05/23/21 03:59 Labs: Abnormal Lab Results - Last 24 Hours (Table) 05/22/21 05/22/21 05/23/21 Range/Units 16:56 20:19 03:59 WBC 14.1 H (3.8-10.6) k/uL RBC 3.49 L (4.30-5.90) m/uL Hgb 8.9 L (13.0-17.5) gm/dL Hct 28.6 L (39.0-53.0) % Sodium (137-145) mmol/L Carbon Dioxide (22-30) mmol/L Glucose (74-99) mg/dL POC Glucose (mg/dL) 105 H 139 H (75-99) mg/dL 05/23/21 05/23/21 05/23/21 Range/Units 03:59 05:58 11:48 WBC (3.8-10.6) k/uL RBC (4.30-5.90) m/uL Hgb (13.0-17.5) gm/dL Hct (39.0-53.0) % Sodium 134 L (137-145) mmol/L Carbon Dioxide 32 H (22-30) mmol/L Glucose 112 H (74-99) mg/dL POC Glucose (mg/dL) 122 H 132 H (75-99) mg/dL Assessment and Plan Plan: Assessment: #1. Symptomatic multivessel coronary artery disease, status post off-pump CABG 3, with STOCKTON to the LAD, OM and SVG to the posterior lateral branch with endovascular vein harvest and ligation of the left atrial appendage, postop day #3 #2. Small left apical pneumothorax, noted on today's chest x-ray, will be followed up with a repeat chest x-ray. Chest tube has been removed #3. History of coronary artery disease with previous stent placement in 2005 #4. Chronic and ongoing tobacco dependence of greater than 30 years #5. COPD, with FEV1 value of 35% of predicted #6. Peripheral arterial disease with intermittent claudication on the Route #7. Hypertension #8. Hyperlipidemia Plan: Encourage deep breathing and coughing Today's chest x-ray has been reviewed There is a small left apical pneumothorax Status post removal of chest tube Follow-up chest x-ray will be obtained Clinically patient is stable Hemodynamically stable Encourage incentive spirometry use Follow-up chest x-ray and labs in the morning I performed a history & physical examination of the patient and discussed their management with my nurse practitioner, Jacqui Ordonez. I reviewed the nurse practitioner's note and agree with the documented findings and plan of care. Lung sounds are positive for diffuse wheezes throughout the lung figueroa. The findings and the impression was discussed with the patient. I attest to the documentation by the nurse practitioner. Time with Patient: Less than 30
--- NOTE | 2021-05-23 12:27 | P.PN ---
Subjective Progress Note Date: 05/23/21 Principal diagnosis: Symptomatic multivessel coronary artery disease. Past medical history significant for coronary artery disease with PCI in 2006 to the circumflex coronary artery, intermittent claudication with PAD on Xarelto as an outpatient, hypertension, hyperlipidemia, bilateral internal carotid artery stenosis 50-79%, GERD, chronic ongoing tobacco dependence, almost daily EtOH use with 4-5 beers daily and family history of coronary artery disease. POD #3 off-pump coronary artery bypass graft 3 with right internal mammary artery to the left anterior descending artery, left internal mammary artery to the obtuse marginal, and a reverse greater saphenous vein graft to the posterior lateral branch, endovascular vein harvest of the left thigh and upper portion of the lower leg, ligation of the left atrial appendage with 40 mm AtriCure clip. Postoperative acute blood loss anemia, expected given hemodilution and preoperative anemia. The patient was seen in follow-up today 05/23/2021 at his bedside on the cardiac stepdown unit. Currently he is sitting up to the bedside chair, is awake, alert and oriented 3 and is in no acute apparent distress. He denies any complaints of shortness of breath or pain at this time. He does although complaining of pain with taking a deep breath and using his incentive spirometry to his chest tube sites. Oxygen saturations are 96% on room air and he is achieving 1000 mL on his incentive spirometry with encouragement. Left and right pleural chest tubes remain in place to waterseal. No air leak is present. Draining thin serosanguineous drainage. Remote telemetry showing normal sinus rhythm heart rate 86 BPM. The patient has been up ambulating in the cardiac stepdown unit hallway with standby assistance. The patient's is present at his bedside and has been updated on his care plan. Objective - Vital Signs Vital signs: Vital Signs Temp 98.1 F 05/23/21 08:00 Pulse 76 05/23/21 11:46 Resp 18 05/23/21 08:00 BP 107/66 05/23/21 08:00 Pulse Ox 96 05/23/21 08:00 Intake & Output 05/22/21 05/23/21 05/23/21 18:59 06:59 18:59 Intake Total 980 200 120 Output Total 2370 535 0 Balance -1390 -335 120 Intake: IV 40 Lactated Ringers 1,000 ml 40 @ 20 mls/hr IV .Q24H [facility] Rx#:[id number] Oral 940 200 120 Output: Chest Tube Drainage 140 135 Chest Tube Left Lateral 80 70 Chest Chest Tube Mediastinal 10 Chest Tube Right Lateral 50 65 Chest Urine 2230 400 0 Stool 0 Other: Voiding Method Indwelling Catheter Indwelling Catheter # Voids 0 0 # Bowel Movements 0 ABP, PAP, CO, CI - Last Documented Arterial Blood Pressure 95/66 Pulmonary Artery Pressure 23/10 Cardiac Output 5.7 Cardiac Index 2.9 - Exam CONSTITUTIONAL: Sitting up to the bedside chair on the cardiac stepdown unit, appears comfortable, cooperative, no apparent acute distress. HEENT: Neck is supple, no JVD, no lymphadenopathy. RESPIRATORY: Lungs sounds essentially clear throughout, diminished to his bilateral bases with few scattered expiratory wheezes. Respirations are symmetrical and nonlabored. Currently on room air with oxygen saturations 96%. Able to achieve 1000 mL on his incentive spirometry. Strong cough. CARDIOVASCULAR: Regular rhythm and rate. S1 and S2 present, negative for S3, gallop or murmur. Sternum is stable. Remote telemetry showing normal sinus rhythm heart rate 86 bpm. Palpable peripheral pulses bilaterally, no edema pr esent to his bilateral lower extremities. No calf pain or tenderness noted. Heart hugger in place with patient demonstrating appropriate use. Knee-high KATTY hose and sequential compression devices in place to his bilateral lower extremities. GASTROINTESTINAL: Abdomen soft, nontender, nondistended. Active bowel sounds present 4 quadrants. Tolerating diet. Passing flatus. No guarding or rigi dity. GENITOURINARY: Continues to void. 400 mL urine output in the last 8 hours. INTEGUMENTARY: Skin is warm and dry with no evidence of clubbing or cyanosis. Midline sternal incision clean dry and well approximated, covered with dry intact dressing. Left lower extremity EVH sites well approximated without redness or drainage. Left arm radial artery harvest sites clean, dry and approximated. No drainage or redness is present. NEUROLOGIC: Cranial nerves II through XII intact. No focal deficits. MUSKULOSKELETAL: Able to move all extremities, strength equal bilaterally, generalized weakness. PSYCHIATRIC: Alert and oriented to person place and time, appropriate affect, intact judgment and insight. INVASIVE LINES AND TUBES: Left and right pleural chest tubes present and on waterseal, no air leaks present. Left pleural chest tube with 70 mL of thin serosanguineous drainage overnight, 100 mL output in the last 24 hours. Right pleural chest tube with 65 mL of thin serosanguineous drainage overnight, 200 mL output in the last 24 hours. - Labs CBC & Chem 7: 05/23/21 03:59 05/23/21 03:59 Labs: Abnormal Lab Results - Last 24 Hours (Table) 05/22/21 05/22/21 05/23/21 Range/Units 16:56 20:19 03:59 WBC 14.1 H (3.8-10.6) k/uL RBC 3.49 L (4.30-5.90) m/uL Hgb 8.9 L (13.0-17.5) gm/dL Hct 28.6 L (39.0-53.0) % Sodium (137-145) mmol/L Carbon Dioxide (22-30) mmol/L Glucose (74-99) mg/dL POC Glucose (mg/dL) 105 H 139 H (75-99) mg/dL 05/23/21 05/23/21 05/23/21 Range/Units 03:59 05:58 11:48 WBC (3.8-10.6) k/uL RBC (4.30-5.90) m/uL Hgb (13.0-17.5) gm/dL Hct (39.0-53.0) % Sodium 134 L (137-145) mmol/L Carbon Dioxide 32 H (22-30) mmol/L Glucose 112 H (74-99) mg/dL POC Glucose (mg/dL) 122 H 132 H (75-99) mg/dL Assessment and Plan Assessment: 1. Symptomatic multi-vessel coronary artery disease, previous PCI in 2005 to the circumflex coronary artery, status post three-vessel CABG 2. Intermittent claudication with PAD on Xarelto as an outpatient 3. Hypertension 4. Hyperlipidemia, treated, cholesterol 119, LDL 55 5. GERD 6. Current tobacco dependence 7. Severe COPD with preoperative FEV1 35% of predicted 8. Bilateral internal carotid artery stenosis 50-79% 9. Almost daily EtOH use, 4-5 beers daily 10. Family history of coronary artery disease Plan: 1. Continue aspirin, statin, Plavix, and beta gayle. Will increase beta gayle therapy as tolerated. 2. Continue to record strict inaccurate I's and O's. Continue daily weights. 3. Encourage incentive spirometry 10 times every hour while awake. Bronchodilators per pulmonology management. 4. Increase activity, ambulate as tolerated. PT/OT/cardiac rehab following. 5. Will monitor daily labs and chest x-rays. Electrolyte replacement per protocol. No transfusion. 6. GI/DVT prophylaxis. 7. Pain control with current medication regimen. [place] discontinued, acetaminophen 650 mg by mouth every 4 hours when necessary ordered. 8. Insulin management per primary care service. Patient is not diabetic, hemoglobin A1c 6.0%, although patient does need tight blood sugar control to prevent infection and promote sternal union. 9. Continue folic acid, thiamine, CIWA protocol. 10. Right and left pleural chest tubes removed without incident. 11. Discharge planning is in place. Anticipate discharge home with home health care in the next 24 hours. 12. The importance of risk modification including smoking cessation was d iscussed with the patient. 13. More recommendations to follow based on patient's clinical course. Time with Patient: Greater than 30
--- NOTE | 2021-05-23 14:42 | XR ---
EXAMINATION TYPE: XR chest 1V portable DATE OF EXAM: 05/23/2021 COMPARISON: Today HISTORY: Postop TECHNIQUE: Single view FINDINGS: Right and left chest tube have been removed. There is approximate 10% bilateral pneumothora x. There is no heart failure nor confluent pneumonic infiltrate. There is some mild fibrotic changes and subsegmental atelectasis at the lung bases. There are sternal wires. IMPRESSION: Small bilateral pneumothorax not changed compared to exam this morning.
[2021-05-23 16:42] LABS: Glucose,Whole Blood 133 mg/dL (75-99)
[2021-05-23 20:52] LABS: Glucose,Whole Blood 138 mg/dL (75-99)
[2021-05-23] MEDS: ACETAMINOPHEN TAB 325 MG TAB PO PRN (21:22)
[2021-05-23] MEDS: SENNOSIDES-DOCUSATE SODIUM 1 EACH TAB PO SCH (21:22)
[2021-05-24] MEDS: INSULIN ASPART (NovoLOG) 100 UNIT/ML VIAL SQ SCH ×2 (05:58→12:18)
[2021-05-24] MEDS: PANTOPRAZOLE 40 MG TABLET PO SCH (05:59)
[2021-05-24] MEDS: THIAMINE 100 MG TAB PO SCH (05:59)
[2021-05-24] MEDS: ACETAMINOPHEN TAB 325 MG TAB PO PRN (05:59)
[2021-05-24 06:13] LABS: Glucose,Whole Blood 111 mg/dL (75-99)
--- NOTE | 2021-05-24 07:49 | XR ---
EXAMINATION TYPE: XR chest 2V DATE OF EXAM: 05/24/2021 COMPARISON: 05/23/2021 TECHNIQUE: PA and lateral views submitted. HISTORY: Shortness of breath FINDINGS: Prominence of the upper mediastinum on the right stable. Heart size unchanged and there is postoperat jimenez change underlying COPD suggested. Tiny pleural effusions with basilar subsegmental changes are no matthew. Degenerative change of the spine. Coarsened interstitium stable small approximately 5-10% thorax stable. IMPRESSION: 1. Stable small bilateral apical pneumothorax measuring 5-10%. Left. Suspect chronic interstitial con gestion or lung disease with basilar atelectasis favored over pneumonia. 2 correlate for COPD
[2021-05-24] MEDS: IPRATROPIUM-ALBUTEROL 3 ML NEB INHALATION SCH ×2 (08:22→12:09)
[2021-05-24 08:36] LABS: HCT 28.8 % (39.0-53.0); Hypochromasia Slight; MCH 25.6 pg (25.0-35.0); MCHC 31.3 g/dL (31.0-37.0); Mean Platelet Volume 7.8; Platelet Count 314 k/uL (150-450); RBC 3.51 m/uL (4.30-5.90); RDW 14.9 % (11.5-15.5); WBC 10.2 k/uL (3.8-10.6)
[2021-05-24 08:58] LABS: African American GFR (CKD) >90 (>60 ml/min/1.73 sqM); Anion Gap 4 mmol/L; Blood Urea Nitrogen 19 mg/dL (9-20); Calcium 8.5 mg/dL (8.4-10.2); Carbon Dioxide 30 mmol/L (22-30); Chloride 102 mmol/L (98-107); Glucose 103 mg/dL (74-99); Non-African American GFR(CKD) >90 (>60 ml/min/1.73 sqM); Potassium 4.1 mmol/L (3.5-5.1); Sodium 136 mmol/L (137-145)
[2021-05-24] MEDS: HEPARIN SODIUM,PORCINE/PF 5,000 UNIT/0.5 ML SYRINGE SQ SCH (09:24)
[2021-05-24] MEDS: METOPROLOL TARTRATE 25 MG TAB PO SCH (09:25)
[2021-05-24] MEDS: ATORVASTATIN 40 MG TAB PO SCH (09:25)
[2021-05-24] MEDS: guaiFENesin 600 MG TABLET.ER PO SCH (09:25)
[2021-05-24] MEDS: ASPIRIN 325 MG TAB PO SCH (09:25)
[2021-05-24] MEDS: CLOPIDOGREL 75 MG TAB PO SCH (09:25)
[2021-05-24] MEDS: FOLIC ACID 1 MG TAB PO SCH (09:26)
--- NOTE | 2021-05-24 09:54 | P.PN ---
Subjective Progress Note Date: 05/24/21 Principal diagnosis: chest pain Patient is a 60-year-old male for history of hypertension, dyslipidemia, GERD, peripheral arterial disease, and coronary artery disease who presented to the hospital due to worsening chest pain. He subsequently underwent three-vessel bypass. Patient seen and examined at bedside. He is anticipating discharge today. He states that his pain is currently well controlled, he is breathing well, he has been up and ambulating without difficulties. We discussed that his hemoglobin A1c is 6 which puts him an increased risk for development of diabetes that this will need to be checked again in 3 months. We discussed that it is important for him to limit his simple carbohydrate intake. He is following the Mediterranean diet and will continue to do so with his . He understands the importance of ensuring he is not felt diabetes after his open-heart surgery. General: non toxic, no distress, appears at stated age, Heart Hugger and placed Derm: warm, dry Head: atraumatic, normocephalic, symmetric Eyes: EOMI, no lid lag, anicteric sclera Mouth: no lip lesion, mucus membranes moist Cardiovascular: S1S2 reg, no murmur, positive posterior tibial pulse bilateral, Lungs: Decreased breath sounds bilateral bases, no rhonchi, no rales , no accessory muscle use Abdominal: soft, nontender to palpation, no guarding, no appreciable organomegaly Ext: no gross muscle atrophy, no edema, no contractures Neuro: CN II-XI grossly intact, no focal neuro deficits Psych: Alert, oriented, appropriate affect Prediabetes with hemoglobin A1c of 6 -Recommend repeat Hemoglobit A1c testing in 3 months -Postop blood sugars were well-controlled. Acute blood loss anemia, anticipated outcome of surgery -Recommend oral iron 30 days with repeat CBC. Coronary artery disease status post coronary artery bypass grafting 3 Coronary artery disease Unstable angina at presentation Ongoing tobacco abuse COPD without exacerbation FEV1 35% Peripheral arterial disease with intermittent claudication Hypertension Dyslipidemia GERD Bilateral internal carotid artery stenosis EtOH misuse Hyponatremia, improved Medications reviewed. Discussed with patient and encouraged weight loss, following of the Mediterranean diet with complex carbohydrates, and repeat hemoglobin A1c in 3 months. He is aware of lithium 4 consistent continuing to take medications as prescribed including aspirin, Plavix, and statin. Objective - Vital Signs Vital signs: Vital Signs Temp 98.6 F 05/24/21 08:00 Pulse 90 05/24/21 08:35 Resp 18 07/26/21 08:00 BP 112/54 05/24/21 08:00 Pulse Ox 93 L 05/24/21 08:00 Intake & Output 05/23/21 05/24/21 05/24/21 18:59 06:59 18:59 Intake Total 360 240 240 Output Total 300 0 Balance 60 240 240 Weight 79.2 kg Intake: Oral 360 240 240 Output: Urine 300 Stool 0 0 Other: Voiding Method Indwelling Catheter Indwelling Catheter # Voids 0 # Bowel Movements 0 ABP, PAP, CO, CI - Last Documented Arterial Blood Pressure 95/66 Pulmonary Artery Pressure 23/10 Cardiac Output 5.7 Cardiac Index 2.9 - Labs CBC & Chem 7: 05/24/21 07:38 05/24/21 07:38 Labs: Abnormal Lab Results - Last 24 Hours (Table) 05/23/21 05/23/21 05/23/21 Range/Units 11:48 16:41 20:24 RBC (4.30-5.90) m/uL Hgb (13.0-17.5) gm/dL Hct (39.0-53.0) % Sodium (137-145) mmol/L Creatinine (0.66-1.25) mg/dL Glucose (74-99) mg/dL POC Glucose (mg/dL) 132 H 133 H 138 H (75-99) mg/dL 05/24/21 05/24/21 05/24/21 Range/Units 05:52 07:38 07:38 RBC 3.51 L (4.30-5.90) m/uL Hgb 9.0 L (13.0-17.5) gm/dL Hct 28.8 L (39.0-53.0) % Sodium 136 L (137-145) mmol/L Creatinine 0.61 L (0.66-1.25) mg/dL Glucose 103 H (74-99) mg/dL POC Glucose (mg/dL) 111 H (75-99) mg/dL
--- NOTE | 2021-05-24 11:17 | P.PN ---
Subjective Progress Note Date: 05/24/21 Principal diagnosis: Symptomatic coronary artery disease. His medical history of coronary artery disease with PCI in 2006 to the circumflex coronary artery, intermittent claudication with PAD on Xarelto, hypertension, hyperlipidemia, bilateral internal carotid artery stenosis, GERD, current tobacco dependence, family history of coronary artery disease POD #4 off-pump coronary artery bypass graft 3 with right internal mammary artery to the left anterior descending artery, left internal mammary artery to the obtuse marginal, and reverse greater saphenous vein graft to the posterior lateral branch, endovascular vein harvest of the left thigh and upper portion of the lower leg, ligation of the left atrial appendage with 40 mm AtriCure clip Postoperative acute blood loss anemia, expected given hemodilution and preoperative anemia The patient's currently sitting up in a recliner on the cardiac stepdown unit in no acute distress. Does complain of postoperative surgical pain but states controlled on current medication regimen, denies shortness of breath. Remains in sinus rhythm and hemodynamically stable. Has been ambulatory in the hallway without difficulty. States he feels ready to go home. No new concerns. Objective - Vital Signs Vital signs: Vital Signs Temp 98.6 F 05/24/21 08:00 Pulse 90 05/24/21 08:35 Resp 18 05/24/21 08:00 BP 112/54 05/24/21 08:00 Pulse Ox 93 L 05/24/21 08:00 Intake & Output 05/23/21 05/24/21 05/24/21 18:59 06:59 18:59 Intake Total 360 240 240 Output Total 300 0 Balance 60 240 240 Weight 79.2 kg Intake: Oral 360 240 240 Output: Urine 300 Stool 0 0 Other: Voiding Method Indwelling Catheter Indwelling Catheter # Voids 0 # Bowel Movements 0 ABP, PAP, CO, CI - Last Documented Arterial Blood Pressure 95/66 Pulmonary Artery Pressure 23/10 Cardiac Output 5.7 Cardiac Index 2.9 - Exam CONSTITUTIONAL: Appears comfortable, cooperative, no acute distress RESPIRATORY: Lungs sounds diminished bilaterally. Respirations even, nonlabored. Currently on room air with oxygen saturation 95%. Able to achieve 1500 mL on incentive spirometry. Strong cough. CARDIOVASCULAR: S1, S2 present. Regular rate and rhythm, sinus rhythm on telemetry. Sternum stable. Palpable peripheral pulses bilaterally. No edema present. No calf pain or tenderness noted. Heart hugger in place with patient demonstrating appropriate use. Antiembolism stockings, SCDs present. GASTROINTESTINAL: Abdomen soft, nontender, nondistended. Active bowel sounds present 4 quadrants. Tolerating diet. Positive flatus, negative bowel movement GENITOURINARY: Continues to void INTEGUMENTARY: Skin is warm and dry with evidence of good perfusion. Anterior chest incision well approximated and covered with dry intact dressing. Left lower extremity EVH site well approximated without redness or drainage. NEUROLOGIC: Cranial nerves II through XII intact MUSKULOSKELETAL: Able to move all extremities, strength equal bilaterally, gait normal PSYCHIATRIC: Alert and oriented to person place and time, appropriate affect, intact judgment and insight - Allied health notes Allied health notes reviewed: nursing - Labs CBC & Chem 7: 05/24/21 07:38 05/24/21 07:38 Labs: Abnormal Lab Results - Last 24 Hours (Table) 05/23/21 05/23/21 05/23/21 Range/Units 11:48 16:41 20:24 RBC (4.30-5.90) m/uL Hgb (13.0-17.5) gm/dL Hct (39.0-53.0) % Sodium (137-145) mmol/L Creatinine (0.66-1.25) mg/dL Glucose (74-99) mg/dL POC Glucose (mg/dL) 132 H 133 H 138 H (75-99) mg/dL 05/24/21 05/24/21 05/24/21 Range/Units 05:52 07:38 07:38 RBC 3.51 L (4.30-5.90) m/uL Hgb 9.0 L (13.0-17.5) gm/dL Hct 28.8 L (39.0-53.0) % Sodium 136 L (137-145) mmol/L Creatinine 0.61 L (0.66-1.25) mg/dL Glucose 103 H (74-99) mg/dL POC Glucose (mg/dL) 111 H (75-99) mg/dL - Imaging and Cardiology Chest x-ray: report reviewed, image reviewed Assessment and Plan Assessment: 1. Symptomatic coronary artery disease, previous PCI in 2005 to the circumflex coronary artery, status post three-vessel CABG 2. Intermittent claudication with PAD on Xarelto 3. Hypertension 4. Hyperlipidemia, treated, cholesterol 119, LDL 55 5. GERD 6. Current tobacco dependence 7. Severe COPD with preoperative FEV1 35% of predicted 8. Bilateral internal carotid artery stenosis 50-79% 9. Almost daily EtOH use, 4-5 beers daily 10. Family history of coronary artery disease Plan: 1. Continue aspirin, statin, Plavix, beta gayle therapy. 2. Encourage incentive spirometry 10 times every hour while awake. Bronchodilators per pulmonology 3. Increase activity, ambulate as tolerated. PT/OT/cardiac rehab following 4. Will monitor daily labs and x-rays. Electrolyte replacement per protocol. No transfusion 5. GI/DVT prophylaxis 6. Pain control with current medication regimen 7. Insulin management per primary care service. Patient is not diabetic, hemoglobin A1c 6.0%, although patient does need tight blood sugar control to prevent infection and promote sternal union 8. Continue folic acid, thiamine, CIWA protocol 9. Strict accurate intake and output. Daily weights 10. Continue to encourage smoking cessation 11. Discharge planning a progress. Anticipate discharge home with home care this afternoon 12. More recommendations to follow Time with Patient: Greater than 30
[2021-05-24 12:06] LABS: Glucose,Whole Blood 91 mg/dL (75-99)
[2021-05-24 12:22] VITALS: PULSE 80
--- NOTE | 2021-05-24 13:01 | P.PN ---
Subjective This is a pleasant 60 year old male with history of carotid artery stenosis, PAD with claudication, tobacco abuse, CAD with prior remote PCI 2005. He follows with Dr. Momin. He presented to the office recently with Dr. Momin secondary to new episodes of chest pain radiating to his jaw and down arm associated with diaphroesis, worse with exertion over the last 6-8 weeks. He has also been having episodes at rest and at night concerning for unstable angina. Echocardiogram showed normal LV function without significant valvular disease. Heart catheterization was recommended. Patient underwent cardiac catheterization with Dr. Momin and given multivessel CAD cardiothoracic surgery was consulted for possible CABG. Patient is POD #4 coronary artery bypass graft 3 with right internal mammary artery to the left anterior descending artery, left internal mammary artery to the obtuse marginal, and reverse greater saphenous vein graft to the posterior lateral branch. Patient seen and examined at bedside, sitting up in the bedside chair in no acute distress. He states he feels much better, denies chest pain, shortness of breath, lightheadedness, dizziness. He is ambulatory in the halls with with no complaints. Blood pressure 112/54, heart rate 86, afebrile, maintaining oxygen saturations on room air. He is maintaining sinus mechanism on telemetry. GENERAL: Well-appearing, well-nourished and in no acute distress. NECK: Supple without JVD or thyromegaly. LUNGS: Breath sounds clear to auscultation bilaterally. Respiration equal and unlabored. No wheezes, rales or rhonchi. HEART: Regular rate and rhythm without murmurs, rubs or gallops. S1 and S2 heard. Heart hugger in place Anterior chest incision covered with dry intact, dressing is dry EXTREMITIES: Normal range of motion, no edema. No clubbing or cyanosis. Periph eral pulses intact. ASSESSMENT: Coronary artery disease status post three-vessel CABG on 05/20/2021 and previous PCI in 2005 PAD on Xarelto Hypertension Hyperlipidemia Chronic nicotine dependence COPD Bilateral internal carotid artery stenosis PLAN: Continue aspirin, statin, plavix, beta gayle Increase activity, ambulate as tolerated. PT/OT/cardiac rehab Incentive spirometer every hour while awake Post operative management per CT Surgery team Smoking cessation discussed and highly recommended with patient. Patient to follow up with Dr. Momin in the office, he has an appointment scheduled for 06/08/21 Objective - Vital Signs Vital signs: Vital Signs Temp 98.6 F 05/24/21 08:00 Pulse 80 05/24/21 12:20 Resp 18 05/24/21 08:00 BP 112/54 05/24/21 08:00 Pulse Ox 93 L 05/24/21 08:00 Intake & Output 05/23/21 05/24/21 05/24/21 18:59 06:59 18:59 Intake Total 360 240 240 Output Total 300 0 Balance 60 240 240 Weight 79.2 kg Intake: Oral 360 240 240 Output: Urine 300 Stool 0 0 Other: Voiding Method Indwelling Catheter Indwelling Catheter Toilet # Voids 0 1 # Bowel Movements 0 1 ABP, PAP, CO, CI - Last Documented Arterial Blood Pressure 95/66 Pulmonary Artery Pressure 23/10 Cardiac Output 5.7 Cardiac Index 2.9 - Labs CBC & Chem 7: 05/24/21 07:38 05/24/21 07:38 Labs: Abnormal Lab Results - Last 24 Hours (Table) 05/23/21 05/23/21 05/24/21 Range/Units 16:41 20:24 05:52 RBC (4.30-5.90) m/uL Hgb (13.0-17.5) gm/dL Hct (39.0-53.0) % Sodium (137-145) mmol/L Creatinine (0.66-1.25) mg/dL Glucose (74-99) mg/dL POC Glucose (mg/dL) 133 H 138 H 111 H (75-99) mg/dL 05/24/21 05/24/21 Range/Units 07:38 07:38 RBC 3.51 L (4.30-5.90) m/uL Hgb 9.0 L (13.0-17.5) gm/dL Hct 28.8 L (39.0-53.0) % Sodium 136 L (137-145) mmol/L Creatinine 0.61 L (0.66-1.25) mg/dL Glucose 103 H (74-99) mg/dL POC Glucose (mg/dL) (75-99) mg/dL
--- NOTE | 2021-05-24 13:07 | P.DS ---
Providers Date of admission: 05/20/21 14:02 Expected date of discharge: 05/24/21 Attending physician: Ermias Carrillo Consults: 05/19/21 09:31 Consult Physician Routine Consulting Provider: Ermias Carrillo Consult Reason/Comments: re: CABG eval Do you want consulting provider notified?: Already Contacted 05/19/21 12:37 Consult Physician Routine Consulting Provider: Maverick Chong Consult Reason/Comments: CAD;preo cabg Do you want consulting provider notified?: Yes 05/19/21 14:43 Consult to Anesthesia Routine Consulting Provider: Anesthesia,Services Consult Reason/Comments: Cardiac Surgery Pre-Op 05/20/21 13:33 Consult Physician Routine Consulting Provider: Lyn Selby Consult Reason/Comments: med mgmt Do you want consulting provider notified?: Already Contacted Consult Physician Routine Consulting Provider: Stan Whitaker Consult Reason/Comments: Bench Molder Consult: post cardiac surgery Do you want consulting provider notified?: Yes Primary care physician: Ildefonso Gilman MD Hospital Course: FINAL DIAGNOSIS: 1. Symptomatic coronary artery disease, previous PCI to the circumflex coronary artery in 2005 2. Intermittent claudication with PAD, on Xarelto 3. Hypertension 4. Hyperlipidemia, treated, cholesterol 119, LDL 55 5. GERD 6. Current tobacco dependence 7. Severe COPD with preoperative FEV1 35% of predicted 8. Bilateral internal carotid artery stenosis 50-79% 9. Almost daily EtOH use without history of withdrawal 10. Family history of coronary artery disease 11. Postoperative acute blood loss anemia, expected 12. Small left apical pneumothorax, no significance PRINCIPAL PROCEDURE: 1. Off-pump coronary artery bypass grafting 3 with right internal mammary artery to the left anterior descending artery, left internal mammary artery to the obtuse marginal coronary artery, and reverse greater saphenous vein graft to the posterior lateral branch 2. Endovascular vein harvest of the left thigh and upper portion of the lower leg 3. Ligation of the left atrial appendage with a 40 mm AtriCure clip HISTORY OF PRESENT ILLNESS: This is an active 30-year-old gentleman who follows on an outpatient basis with Dr. Gilman for primary care. He was having complaints of chest pain with exertion, relieved with rest, with radiation to his left arm and jaw. These events have been occurring over the previous few weeks, but had increased recently. [facility] and was seen by Dr. Momin. Transthoracic echocardiogram was completed in the office which demonstrated normal left ventricle systolic function with EF 60- 65%, normal diastolic function, no wall motion abnormalities, mild mitral regurgitation with mild mitral annular calcification, and mild tricuspid regurg itation. Carotid ultrasound was also completed which demonstrated 50-79% bilateral internal carotid artery stenosis. The patient was recommended to undergo heart catheterization which demonstrated left main disease 60% confirmed with IVUS, proximal LAD stenosis 70%, iFR 0.8, mid LAD stenosis 80%, iFR 0.67, proximal circumflex stenosis 85% with 80% obtuse marginal artery stenosis, and complete occlusion of the nondominant right coronary artery. Consultation was placed to Dr. Carrillo from cardiothoracic surgery. He was recommended to undergo surgical myocardial revascularization. The usual perioperative course was discussed in detail with the patient and his family, all risks and benefits were explained, all questions were answered, and consent was obtained to proceed with surgery. The patient was kept inpatient due to the nature of his disease process. HOSPITAL COURSE: The patient was brought to the preoperative area 05/20/21, prepared in the usual fashion, and subsequently taken to the operating room where Dr. Carrillo performed off pump 3 vessel CABG. Upon completion of surgery the patient was transferred to the cardiovascular intensive care unit where he was recovered and monitored hemodynamically. He was extubated, all lines, tubes, and drips were discontinued when appropriate, and he was transferred to 3 S. cardiac stepdown unit for further monitoring and rehabilitation. His oxygen was titrated down, he continued to work with physical and occupational therapy, he was tolerating oral diet, his pain was controlled, and he was ready to be discharged to home with [facility] care on postoperative day #4. He received written and verbal instruction regarding his medications, activity restrictions, signs and symptoms requiring physician notification, and follow-up appointments. COMPLICATIONS: The patient experienced no postoperative complications. Patient Condition at Discharge: Stable Plan - Discharge Summary Discharge Rx Participant: Yes New Discharge Prescriptions: New Metoprolol Tartrate [Lopressor] 25 mg PO BID #60 tab Sennosides-Docusate Sodium [Senokot-S] 2 each PO HS PRN tab PRN Reason: Constipation Acetaminophen Tab [Tylenol] 650 mg PO Q4HR PRN tab PRN Reason: Fever And/ Or Pain guaiFENesin [Mucinex] 1,200 mg PO Q12HR PRN tablet.er PRN Reason: Cough Continue Aspirin [Adult Low Dose Aspirin EC] 81 mg PO DAILY Omeprazole 40 mg PO DAILY Sucralfate [Carafate] 1 gm PO QID PRN PRN Reason: GERD Albuterol Inhaler [Ventolin Hfa Inhaler] 1 puff INHALATION RT-QID PRN PRN Reason: COPD Calcium Carbonate [Tums] 500 - 1,000 mg PO QID PRN PRN Reason: GERD Atorvastatin Calcium [Lipitor] 80 mg PO HS Nicotine Polacrilex [Nicotine Gum] 4 mg BUCCAL DIRECTED PRN PRN Reason: smoking cessation Rivaroxaban [Xarelto] 2.5 mg PO BID Discontinued Labetalol [Trandate] 200 mg PO BID Isosorbide Mononitrate ER [Imdur] 30 mg PO DAILY Discharge Medication List Aspirin [Adult Low Dose Aspirin EC] 81 mg PO DAILY 09/02/15 [History] Omeprazole 40 mg PO DAILY 10/24/19 [History] Sucralfate [Carafate] 1 gm PO QID PRN 10/25/19 [History] Albuterol Inhaler [Ventolin Hfa Inhaler] 1 puff INHALATION RT-QID PRN 05/17/21 [History] Atorvastatin Calcium [Lipitor] 80 mg PO HS 05/17/21 [History] Calcium Carbonate [Tums] 500 - 1,000 mg PO QID PRN 05/17/21 [History] Nicotine Polacrilex [Nicotine Gum] 4 mg BUCCAL DIRECTED PRN 05/17/21 [History] Rivaroxaban [Xarelto] 2.5 mg PO BID 05/17/21 [History] Acetaminophen Tab [Tylenol] 650 mg PO Q4HR PRN tab 05/24/21 [Rx] Metoprolol Tartrate [Lopressor] 25 mg PO BID #60 tab 05/24/21 [Rx] Sennosides-Docusate Sodium [Senokot-S] 2 each PO HS PRN tab 05/24/21 [Rx] guaiFENesin [Mucinex] 1,200 mg PO Q12HR PRN tablet.er 05/24/21 [Rx] Follow up Appointment(s)/Referral(s): Cece Kenney NPC [Nurse Practitioner] - 06/02/21 1:00 pm (To be seen in the surgeon's office behind the hospital in [facility], [address], [address]) Rehab [facility],Cardiac [NON-STAFF] - 4 Weeks (You will receive a phone call in 4-6 weeks for evaluation for cardiac rehab) Devaughn Momin DO [STAFF PHYSICIAN] - 06/08/21 3:00 pm Ermias Carrillo MD [STAFF PHYSICIAN] - 06/17/21 9:30 am Maverick Chong DO [Doctor of Osteopathic Medicine] - 2 Weeks (Please call to make follow up appointment as phone was busy) [facility], [NON-STAFF] - Ildefonso Gilman MD [Primary Care Provider] - 06/04/21 10:15 am Ambulatory/Diagnostic Orders: Complete Blood Count w/diff [LAB.AMB] Time Frame: 3 Days, Location: None Selecte d Comprehensive Metabolic Panel [LAB.AMB] Time Frame: 3 Days, Location: None Selected Activity/Diet/Wound Care/Special Instructions: DISCHARGE INSTRUCTIONS: 1. No driving for 4 weeks, or until physician gives their ok. 2. The patient should sleep in their own bed, no medical bed needed. 3. Stairs are not an issue. If the bedroom is upstairs, it is advised that the patient go up at night and down in the morning for the first week. Go slowly, using handrail and take 1 step at a time. 4. KATTY hose are to be worn for 30 days or until physician discontinues. 5. Heart hugger is to be worn 100% of the time until physician discontinues.(except when showering) 6. No lifting, pushing, or pulling more than 10 pounds for 12 weeks. The physician will advise of any restriction changes. 7. The patient is expected to continue the prescribed walking program. 8. Continue pain control per as needed orders. 9. Continue with incentive spirometry and splinting/heart hugger until otherwise directed by the physician. 10. Must shower daily using liquid antibacterial soap and a separate white washcloth for each individual incision. 11. Routine sternal incision care. No powders, lotions, ointments on incisions. No dressings are necessary on incisions unless they are draining. Dermabond tape is to remain on sternal incision until surgeon follow-up. 12. Please call surgeon/PSYCHOLOGICAL AIDE for temp greater than 101 F or purulent drainage from incisions. 13. All prescriptions given by surgeon for 30 days. Refills need to be filled through freezer unloader/primary care physician. 14. A Red armband has been placed on the patient. It should be worn for 30 days post surgery and will be removed by the cardiac surgeons. If an ER visit is necessary, please make sure the number on the Red armband is called. 15. You have been referred to and are expected to begin Cardiac Rehab in approximately 4-6 weeks. 16. Risk modification discussed with the patient including the importance of smoking cessation. HOME HEALTH SERVICES TO PROVIDE: RN SKILLED HOME CARE SERVICES FOR POST-OP SURGICAL PATIENTS WITH THE FOLLOWING: Coronary Artery Bypass Surgery (CABG), Mitral Valve Replacement/Repair ( MVR), Aortic Valve Replacement/Repair (AVR) RN TO CONTINUE EDUCATION FROM ``ROAD TO A HEALTH HEART PATIENT EDUCATION MANUAL (GIVEN TO PATIENT IN THE HOSPITAL) MEDICATION RECONCILIATION WITH EDUCATION NEEDED ON FIRST HOME VISIT EMPHASIZE IMPORTANCE OF WEARING BREAST SUPPORT/HEART HUGGER ENCOURAGE USE OF INCENTIVE SPIROMETER 10 X EVERY HOUR WHILE AWAKE ENCOURAGE UTILIZATION OF LOWER EXTREMITY COMPRESSION STOCKINGS/KATTY HOSE and ELEVATE LEGS ABOVE LEVEL OF HEART WHILE AT REST. ENCOURAGE AMBULATION 3-5x/day INCREASING TOLERATES, WHILE AVOIDING EXTREMES IN TEMPERATURE FREQUENCY: RN TO OPEN THE PATIENT WITHIN 24 HOURS OF DISCHARGE FROM THE HOSPITAL WITH TELEHEALTH [place]ST[place] [facility] TO VISIT 2-3 X A WEEK FOR 4 WEEKS EST ABLISHED BY PATIENT NEEDS. LABORATORY: CBC, CMP TO BE DRAWN ON THE THIRD DAY HOME, (RAN STAT) FAX RESULTS TO [phone]. TELEHEALTH PARAMETERS: WEIGHT: NOTIFY MD OF WEIGHT GAIN OF 2 LBS IN 24 HOURS OR 5 LBS IN ONE WEEK HR: NOTIFY MD OF HR <55 BPM OR HR>100 BPM BP: NOTIFY MD IF BP <90/55 OR BP>140/100 O2 SAT: NOTIFY MD IF PO2<93% ON ROOM AIR SEND TELEHEALTH REPORT TO APERTURE MASK ETCHER AND CARDIOVASCULAR SURGEON THE FIRST WEEK OF CARE AND THEN BI-WEEKLY. PLEASE ADDITIONALLY COMMUNICATE ANY ABNORMALS AND NEW FINDINGS TO THE SURGEONS OFFICE. For any questions or concerns please call sample worker Cece @ or Don @ Discharge Disposition: HOME WITH HOME HEALTH SERVICES
--- NOTE | 2021-05-24 13:48 | P.PN ---
Subjective Progress Note Date: 05/24/21 Principal diagnosis: Coronary artery disease, status post coronary artery bypass grafting On 05/23/2021 patient seen in follow-up on selective care unit, today is postoperative day #3, status post three-vessel coronary artery bypass grafting. He is currently on room air, pulse ox is 96%, hemodynamically has been stable, he is working on incentive spirometer, today's chest x-ray shows mild bilateral pulmonary edema with bibasilar atelectasis. There was also small pneumothorax noted at the left apex, which radiology did not comment on. Bilateral pleural chest tubes are in place. Left-sided chest tube has been removed, repeat chest x-ray is pending. No significant chest tube output in the last 24 hours. Patient has been voiding. His labs have been noted, with blood cell count is 14.1, hemoglobin is 8.9, sodium is 134, CO2 is 32, and the rest of electrolytes and renal profile were unremarkable. Patient has been tolerating oral diet, no nausea vomiting or diarrhea. On 05/24/2021 patient seen in follow-up on selective care unit, he is quitting alert, oriented 3, he is on room air, he has had no acute events overnight, all of his chest tubes including right and left and mediastinal chest tubes have been removed yesterday, follow-up chest x-ray today shows stable small bilateral apical pneumothoraces measuring 5-10 cm on the left, and chronic interstitial congestion. Breathing comfortably, no chest pain, no complaint of dyspnea. working on incentive spirometer. his been tolerating ambulation. Incisions are clean dry and intact. he is being discharged home today. Objective - Vital Signs Vital signs: Vital Signs Temp 98.6 F 05/24/21 08:00 Pulse 80 05/24/21 12:20 Resp 18 05/24/21 08:00 BP 112/54 05/24/21 08:00 Pulse Ox 93 L 05/24/21 08:00 Intake & Output 05/23/21 05/24/21 05/24/21 18:59 06:59 18:59 Intake Total 360 240 480 Output Total 300 0 Balance 60 240 480 Weight 79.2 kg Intake: Oral 360 240 480 Output: Urine 300 Stool 0 0 Other: Voiding Method Indwelling Catheter Indwelling Catheter Toilet # Voids 0 1 # Bowel Movements 0 1 ABP, PAP, CO, CI - Last Documented Arterial Blood Pressure 95/66 Pulmonary Artery Pressure 23/10 Cardiac Output 5.7 Cardiac Index 2.9 - Exam GENERAL EXAM: Alert, very pleasant, 60-year-old white male, on room air comfortable in no apparent distress. HEAD: Normocephalic/atraumatic. EYES: Normal reaction of pupils, equal size. Conjunctiva pink, sclera white. NOSE: Clear with pink turbinates. THROAT: No erythema or exudates. NECK: No masses, no JVD, no thyroid enlargement, no adenopathy. CHEST: No chest wall deformity. Symmetrical expansion. Sternal incision is clean dry and intact, chest tube sites are clean dry and intact. Interval removal of the right and left and mediastinal chest tubes. LUNGS: Equal air entry with no crackles, wheeze, rhonchi or dullness. CVS: Regular rate and rhythm, normal S1 and S2, no gallops, no murmurs, no rubs ABDOMEN: Soft, nontender. No hepatosplenomegaly, normal bowel sounds, no guarding or rigidity. EXTREMITIES: No clubbing, no edema, no cyanosis, 2+ pulses and upper and lower extremities. MUSCULOSKELETAL: Muscle strength and tone normal. SPINE: No scoliosis or deformity SKIN: No rashes CENTRAL NERVOUS SYSTEM: Alert and oriented -3. No focal deficits, tone is normal in all 4 extremities. PSYCHIATRIC: Alert and oriented -3. Appropriate affect. Intact judgment and insight. - Labs CBC & Chem 7: 05/24/21 07:38 05/24/21 07:38 Labs: Abnormal Lab Results - Last 24 Hours (Table) 05/23/21 05/23/21 05/24/21 Range/Units 16:41 20:24 05:52 RBC (4.30-5.90) m/uL Hgb (13.0-17.5) gm/dL Hct (39.0-53.0) % Sodium (137-145) mmol/L Creatinine (0.66-1.25) mg/dL Glucose (74-99) mg/dL POC Glucose (mg/dL) 133 H 138 H 111 H (75-99) mg/dL 05/24/21 05/24/21 Range/Units 07:38 07:38 RBC 3.51 L (4.30-5.90) m/uL Hgb 9.0 L (13.0-17.5) gm/dL Hct 28.8 L (39.0-53.0) % Sodium 136 L (137-145) mmol/L Creatinine 0.61 L (0.66-1.25) mg/dL Glucose 103 H (74-99) mg/dL POC Glucose (mg/dL) (75-99) mg/dL Assessment and Plan Plan: Assessment: #1. Symptomatic multivessel coronary artery disease, status post off-pump CABG 3, with STOCKTON to the LAD, OM and SVG to the posterior lateral branch with endovascular vein harvest and ligation of the left atrial appendage, postop day #4 #2. Small left apical pneumothorax, noted on today's chest x-ray, follow-up chest x-ray today shows stable 5-10% left apical pneumothorax. His chest tubes have been removed #3. History of coronary artery disease with previous stent placement in 2005 #4. Chronic and ongoing tobacco dependence of greater than 30 years #5. COPD, with FEV1 value of 35% of predicted #6. Peripheral arterial disease with intermittent claudication on the Route #7. Hypertension #8. Hyperlipidemia Plan: Today's chest x-ray has been reviewed There is stable 5-10% left apical pneumothorax Breathing comfortably Vital signs are stable Tolerating ambulation Patient is being discharged home today Outpatient follow-up with Dr. Chong in the office in 7-10 days I performed a history & physical examination of the patient and discussed their management with my nurse practitioner, Jacqui Ordonez. I reviewed the nurse practitioner's note and agree with the documented findings and plan of care. Lung sounds are positive for diffuse wheezes throughout the lung figueroa. The findings and the impression was discussed with the patient. I attest to the documentation by the nurse practitioner. Time with Patient: Less than 30
[2021-05-24 14:23] VITALS: BP 116/60; RESP 16; TEMP 98.4
== END 2021-05-24 15:10 | disposition home health service (06) | DRG 234 ==
LOC: CATHCVL 06:53 → 3SCARD 12:48 → 2SICU 05-20 07:06 → CATHCVL 05-20 14:01 → 2SICU 05-20 14:02 → 3SCARD 05-23 05:52
PROVIDERS: ADMIT Thoracic Surgery (Cardiothoracic Vascular Surgery); ATTEND Thoracic Surgery (Cardiothoracic Vascular Surgery)
PROC: B2111ZZ Fluoroscopy of Multiple Coronary Arteries using Low Osmolar Contrast (ICD-10-PCS; 2021-05-19)
PROC: 4A023N7 Measurement of Cardiac Sampling and Pressure, Left Heart, Percutaneous Approach (ICD-10-PCS; 2021-05-19 08:30)
PROC: 06BQ4ZZ Excision of Left Saphenous Vein, Percutaneous Endoscopic Approach (ICD-10-PCS; 2021-05-20)
PROC: 02L70CK Occlusion of Left Atrial Appendage with Extraluminal Device, Open Approach (ICD-10-PCS; 2021-05-20)
PROC: 02110Z9 Bypass Coronary Artery, Two Arteries from Left Internal Mammary, Open Approach (ICD-10-PCS; principal; 2021-05-20 07:30)
PROC: 021009W Bypass Coronary Artery, One Artery from Aorta with Autologous Venous Tissue, Open Approach (ICD-10-PCS; 2021-05-20 07:30)
DX: I25.110 Atherosclerotic heart disease of native coronary artery with unstable angina pectoris (principal); D62 Acute posthemorrhagic anemia; J93.83 Other pneumothorax; E87.1 Hypo-osmolality and hyponatremia; J98.11 Atelectasis; J81.1 Chronic pulmonary edema; E78.5 Hyperlipidemia, unspecified; I11.9 Hypertensive heart disease without heart failure; I73.9 Peripheral vascular disease, unspecified; K21.9 Gastro-esophageal reflux disease without esophagitis; F17.200 Nicotine dependence, unspecified, uncomplicated; Z79.82 Long term (current) use of aspirin; Z79.01 Long term (current) use of anticoagulants; Z88.8 Allergy status to other drugs, medicaments and biological substances; Z20.822 Contact with and (suspected) exposure to COVID-19; Z82.49 Family history of ischemic heart disease and other diseases of the circulatory system; I65.23 Occlusion and stenosis of bilateral carotid arteries; Z95.5 Presence of coronary angioplasty implant and graft; J44.9 Chronic obstructive pulmonary disease, unspecified; Z79.02 Long term (current) use of antithrombotics/antiplatelets; R73.03 Prediabetes; H91.90 Unspecified hearing loss, unspecified ear; Z79.899 Other long term (current) drug therapy; Z97.4 Presence of external hearing-aid
CPT/HCPCS: 71045; 71046; 80048; 80053; 80061; 80074; 81003; 82330; 82805; 83036; 83735; 84132; 84443; 85025; 85027; 85520; 85610; 85730; 86850; 86891; 86900; 86901; 86920; 87070; 87635; 92978; 93458; 93571; 93572; 93922; 93923; 93930; 93970; 94002; 94150; 94640

== ENCOUNTER 2021-06-29 06:04 | Day surgery (SDC) | payer BC ==
[2021-06-23 14:55] VITALS: BMI 24.3
[~2021-06-29 06:04] MED LIST changes: -ALPRAZolam 0.25 MG TAB PO PRN; -ALPRAZolam 0.5 MG TAB PO PRN; -NITROGLYCERIN SL TABS 0.4 MG TAB SUBLINGUAL PRN
[2021-06-29] MEDS ORDERED: ASPIRIN 325 MG TAB ONE (06:19)
[2021-06-29] MEDS ORDERED: SODIUM CHLORIDE 0.9% 1,000 ML IV ONE (06:48)
[2021-06-29 06:51] LABS: Anisocytosis Slight; Basophils # (A) 0.1 k/uL (0-0.2); Basophils % (A) 1 %; Eosinophils # (A) 0.3 k/uL (0-0.7); Eosinophils % (A) 4 %; HCT 31.9 % (39.0-53.0); HGB 9.7 gm/dL (13.0-17.5); Hypochromasia Marked; Lymphocytes # (A) 1.6 k/uL (1.0-4.8); Lymphocytes % (A) 23 %; MCH 24.1 pg (25.0-35.0); MCHC 30.3 g/dL (31.0-37.0); MCV 79.6 fL (80.0-100.0); Mean Platelet Volume 7.9; Monocytes # (A) 0.5 k/uL (0-1.0); Monocytes % (A) 7 %; Neutrophils # (A) 4.5 k/uL (1.3-7.7); Neutrophils % (A) 63 %; Platelet Count 376 k/uL (150-450); RBC 4.01 m/uL (4.30-5.90); RDW 16.3 % (11.5-15.5)
[2021-06-29 07:04] LABS: African American GFR (CKD) >90 (>60 ml/min/1.73 sqM); Anion Gap 6 mmol/L; Blood Urea Nitrogen 17 mg/dL (9-20); Calcium 9.3 mg/dL (8.4-10.2); Carbon Dioxide 25 mmol/L (22-30); Chloride 110 mmol/L (98-107); Glucose 109 mg/dL (74-99); Non-African American GFR(CKD) >90 (>60 ml/min/1.73 sqM); Sodium 141 mmol/L (137-145)
[2021-06-29] MEDS: MIDAZOLAM 2 MG/2 ML VIAL IVP ONE ×2 (07:45→08:27)
[2021-06-29] MEDS: fentaNYL (PF) 50 MCG/ML 2 ML AMP IVP ONE ×2 (07:45→09:36)
[2021-06-29] MEDS ORDERED: LIDOCAINE 1% INJ 10MG/ML (20 ML MDV) SQ ONE (07:46)
[2021-06-29] MEDS ORDERED: VERAPAMIL SYRINGE (5 MG/10 ML) INTRAARTER ONE (07:51)
[2021-06-29] MEDS: HEPARIN SODIUM 1,000 UN/ML (10ML VL) IV ONE ×3 (07:55→09:53)
[2021-06-29] MEDS ORDERED: IOPAMIDOL-250 100ML BTL INTRAARTER ONE ×3 (09:20→09:58)
[2021-06-29] MEDS ORDERED: CLOPIDOGREL 75 MG TAB PO ONE (09:57)
[2021-06-29] MEDS ORDERED: hydrALAZINE HCL 20 MG/ML 1 ML VIAL ONE (11:55)
[2021-06-29] MEDS ORDERED: hydrALAZINE HCL 20 MG/ML 1 ML VIAL IVP ONE (11:58)
--- NOTE | 2021-06-29 12:07 | IR ---
Fluoroscopy HISTORY: Pain 40.6 minutes fluoroscopy time supplied to the referring clinician. 698 intraoperative C-arm images d ocument the procedure. See dictated report from cardiology.
[2021-06-29] MEDS ORDERED: ACETAMINOPHEN TAB 500 MG TAB PO STA (12:12)
[2021-06-29] MEDS ORDERED: MORPHINE SULFATE 2 MG/ML SYRINGE IVP STA (12:14)
[2021-06-29] MEDS ORDERED: hydrALAZINE HCL 20 MG/ML 1 ML VIAL IVP STA (12:14)
[2021-06-29] MEDS ORDERED: ALBUTEROL NEBULIZED 2.5 MG/3 ML INHALATION PRN (13:02)
[2021-06-29] MEDS ORDERED: guaiFENesin 600 MG TABLET.ER PO PRN (13:02)
[2021-06-29] MEDS ORDERED: ACETAMINOPHEN TAB 325 MG TAB PO PRN (13:02)
[2021-06-29] MEDS ORDERED: SUCRALFATE 1 GM TAB PO PRN (13:02)
--- NOTE | 2021-06-29 13:34 | P.OP ---
Description of Procedure: PROCEDURES PERFORMED: Abdominal angiography with bilateral runoff, LINE MAINTENANCE TECHNICIAN and ABISAI of the right SFA with overlapping 6.0 x 140, 6.0 x 40 and 6.0 x 60mm Zilver PTX ABISAI INDICATION: Tesfaye class III claudication, lifestyle limiting HISTORY: Patient is a pleasant 60-year-old male with history of previous tobacco abuse, known PAD, coronary artery disease status post CABG. He has been inhibited by claudication of both calfs which mainly occurs after 40-50 yards. He has tried walking program without any improvement. He had ABIs which were approximately 0.6 bilaterally and ultrasounds showing concern of SFA disease bilaterally and therefore catheterization was recommended. CONSENT:I have discussed the risks, benefits and alternative therapies for the above-mentioned procedure and for both sedation/analgesia as well as necessary blood product administration, if indicated, as they pertain to this patient. The patient has indicated understanding and acceptance of the risks and procedures discussed. PROCEDURE: After the risks, benefits and alternatives of the above mentioned procedure explained in detail with the patient, informed consent was obtained. Patient was taken to the catheterization lab and prepped and draped in usual fashion. 1% lidocaine was used to anesthetize the left radial area. A 6-Ku[place]i sheath was placed in the left radial artery using modified Seldinger technique. A 5-Ku[place]i pigtail catheter was inserted to the abdominal aorta and DSA imaging was obtained. Patient tolerated the diagnostic portion well. Next, the decision was made to perform intervention of right SFA. IV heparin was given. 1% lidocaine was used to anesthetize the left femoral area. Using ultrasound guidance, micropuncture technique a 6-Ku[place]i sheath was placed in the left femoral artery. A Jack catheter was used to advance a Amplatz Super Stiff wire across into the right SFA and a 60 cm destination 6-Ku[place]i sheath was placed up and over. There is somewhat of a steep angulation however was achievable with a Super Stiff wire. Next a 0.035 stiff Glidewire inside of a 5- [place]i angled glide catheter was advanced and used to cross the lesion. There was difficulty crossing a mid SFA And this necessitated J ing the wire and creating a dissection flap. There was some difficulty reentering and initially a outback reentry device was attempted to be inserted however was unable to cross the steep angulated iliac bifurcation. Therefore using a stiff angled glide and a 0.035 glide catheter J was continued to the distal SFA region and anterior was achieved. A small amount of contrast disease to verify intraluminal position. Balloon angioplasty was performed with a 4.0 balloon. Angiography revealed extensive dissection and therefore the decision was made to perform stenting. Overlapping 6.0 x 140 x 2 and 1 6.0 x 60 mm Zilver drug- eluting stents were placed from the proximal SFA to the distal SFA. The stent was postdilated with a 5.0 balloon. Angiograms still showed some dissection and therefore balloon angioplasty exam was performed with higher atmospheres up to 14 thomas. This resulted in much better stent apposition and less recoil. Final angiograms were performed. Pre intervention there was 100% stenosis without flow. Post intervention there was <100% stenosis and brisk unimpeded flow. A left femoral angiogram was performed and anatomoy was unsuitable for closure and therefore the sheath was pulled and manual pressure was held with hemostasis achieved. The left radial sheath was pulled and TR band was placed with hemostasis achieved.. The patient tolerated the procedure well. Patient was transported back to the post catheterization holding area in stable condition. Conscious Sedation: Patient was monitored under the direct supervision of vision of myself for conscious sedation using Versed and fentanyl for a total duration of 128 minutes HEMODYNAMICS: Ao: 134/78 Abdominal aorta: The abdominal aorta has mild calcifcation. Renal arteries were not identified. There is no significant dissection or aneurysm. There is no significant stenosis. Right lower extremity: Right common iliac artery: There is no significant stenosis. Right external iliac artery: There is mild diffuse disease. Right internal iliac artery: There is no significant stenosis. Right common femoral artery: There is mild diffuse disease. Right profunda: There is no significant stenosis. Right SFA: There is a long 100% SFA stenosis. Right popliteal artery: There is no significant stenosis. Right tibioperoneal trunk: There is no significant stenosis. Right anterior tibial artery: There is no significant stenosis. Right porterior tibial artery: There is no significant stenosis. Right peroneal artery: There is no significant stenosis. Left lower extremity: Left common iliac artery: There is no significant stenosis. Left external iliac artery: There is mild diffuse disease. Left internal iliac artery: There is no significant stenosis. Left common femoral artery: There is mild diffuse disease. Left profunda: There is no significant stenosis. Left SFA: There is a long 100% proximal to distal SFA stenosis. Left popliteal artery: There is no significant stenosis. Left tibioperoneal trunk: There is no significant stenosis. Left anterior tibial artery: There is no significant stenosis. Left porterior tibial artery: There is no significant stenosis. Left peroneal artery: There is no significant stenosis. FINAL IMPRESSION: 1. Peripheral arterial disease as described above including bilteral 100% SFA stenosis with 3 vessel runoff. 2. S/p LINE MAINTENANCE TECHNICIAN and ABISAI of the right SFA with overlapping 6.0 x 140, 6.0 x 40 and 6.0 x 60mm Zilver PTX ABISAI PLAN: 1. Aggressive risk factor modification per most recent ACC/AHA guidelines. 2. Continue Plavix and Xarelto for 3 months, however watch hemoglobin closely with mild preoperative anemia noted.
[2021-06-29] MEDS: METOPROLOL TARTRATE 25 MG TAB PO SCH (20:08)
[2021-06-29] MEDS ORDERED: ATORVASTATIN 80 MG TAB PO SCH (21:00)
[2021-06-30] MEDS ORDERED: PANTOPRAZOLE 40 MG TABLET PO SCH (07:30)
[2021-06-30 07:39] LABS: Anisocytosis Slight; Basophils % (A) 0 %; Eosinophils # (A) 0.1 k/uL (0-0.7); Eosinophils % (A) 1 %; HCT 30.4 % (39.0-53.0); HGB 8.7 gm/dL (13.0-17.5); Hypochromasia Marked; Lymphocytes # (A) 1.2 k/uL (1.0-4.8); Lymphocytes % (A) 10 %; MCH 22.9 pg (25.0-35.0); MCHC 28.5 g/dL (31.0-37.0); MCV 80.4 fL (80.0-100.0); Mean Platelet Volume 7.8; Monocytes # (A) 0.7 k/uL (0-1.0); Monocytes % (A) 6 %; Neutrophils # (A) 10.2 k/uL (1.3-7.7); Neutrophils % (A) 82 %; Platelet Count 349 k/uL (150-450); RBC 3.78 m/uL (4.30-5.90); RDW 16.2 % (11.5-15.5); WBC 12.4 k/uL (3.8-10.6)
[2021-06-30 07:55] VITALS: BP 135/68; PULSE 74; RESP 20; TEMP 98.1
[2021-06-30 08:04] LABS: African American GFR (CKD) >90 (>60 ml/min/1.73 sqM); Anion Gap 7 mmol/L; Blood Urea Nitrogen 15 mg/dL (9-20); Calcium 8.7 mg/dL (8.4-10.2); Carbon Dioxide 22 mmol/L (22-30); Chloride 109 mmol/L (98-107); Glucose 111 mg/dL (74-99); Non-African American GFR(CKD) >90 (>60 ml/min/1.73 sqM); Potassium 4.3 mmol/L (3.5-5.1); Sodium 138 mmol/L (137-145)
[2021-06-30] MEDS: METOPROLOL TARTRATE 25 MG TAB PO SCH (08:21)
[2021-06-30] MEDS: SODIUM CHLORIDE 0.9% 1,000 ML in EMPTY BAG 1 BAG IV SCH ×2 (08:22→08:23)
--- NOTE | 2021-06-30 08:46 | P.DS ---
Providers Attending physician: Devaughn Momin DO Primary care physician: Ildefonso Gilman MD Hospital Course: Patient is a pleasant 60-year-old male with history of tobacco abuse, coronary artery disease status post recent CABG, PAD. He underwent a diagnostic abdominal angiography with runoff 06/29/2021 and was found to have bilateral SFA 100% stenosis. He underwent successful stenting of the right SFA from a left femoral approach. On 06/30/2021 he is feeling well, a little bit sore and bilateral femoral sites, able ambulate, no hematoma or shortness breath. He will be continued on Xarelto and Plavix. He is scheduled a follow-up in the next one week with possible intervention of the left SFA. Plan - Discharge Summary Discharge Rx Participant: No New Discharge Prescriptions: New Clopidogrel [Plavix] 75 mg PO DAILY #90 tablet Continue Omeprazole 40 mg PO DAILY Sucralfate [Carafate] 1 gm PO QID PRN PRN Reason: GERD Albuterol Inhaler [Ventolin Hfa Inhaler] 1 puff INHALATION RT-QID PRN PRN Reason: COPD Calcium Carbonate [Tums] 500 - 1,000 mg PO QID PRN PRN Reason: GERD Atorvastatin Calcium [Lipitor] 80 mg PO HS Metoprolol Tartrate [Lopressor] 25 mg PO BID #60 tab Acetaminophen Tab [Tylenol] 650 mg PO Q4HR PRN tab PRN Reason: Fever And/ Or Pain Rivaroxaban [Xarelto] 2.5 mg PO BID guaiFENesin [Mucinex] 1,200 mg PO Q12HR PRN tablet.er PRN Reason: Cough Discontinued Aspirin [Adult Low Dose Aspirin EC] 81 mg PO DAILY Discharge Medication List Omeprazole 40 mg PO DAILY 10/24/19 [History] Sucralfate [Carafate] 1 gm PO QID PRN 10/25/19 [History] Albuterol Inhaler [Ventolin Hfa Inhaler] 1 puff INHALATION RT-QID PRN 05/17/21 [History] Atorvastatin Calcium [Lipitor] 80 mg PO HS 05/17/21 [History] Calcium Carbonate [Tums] 500 - 1,000 mg PO QID PRN 05/17/21 [History] Rivaroxaban [Xarelto] 2.5 mg PO BID 05/17/21 [History] Acetaminophen Tab [Tylenol] 650 mg PO Q4HR PRN tab 05/24/21 [Rx] Metoprolol Tartrate [Lopressor] 25 mg PO BID #60 tab 05/24/21 [Rx] guaiFENesin [Mucinex] 1,200 mg PO Q12HR PRN tablet.er 05/24/21 [Rx] Clopidogrel [Plavix] 75 mg PO DAILY #90 tablet 06/30/21 [Rx] Follow up Appointment(s)/Referral(s): Devaughn Momin DO [STAFF PHYSICIAN] - 07/06/21 10:15 am Patient Instructions/Handouts: Angiogram (DC), Procedural Sedation (ED), Peripheral Vascular Stent Placement (DC)
[2021-06-30] MEDS ORDERED: CLOPIDOGREL 75 MG TAB PO SCH (09:00)
[2021-06-30] MEDS ORDERED: ASPIRIN 81 MG PO SCH (09:00)
== END 2021-06-30 11:47 ==
LOC: CATHCVL 06:04 → 3SCARD 15:33 → CATHCVL 06-30 11:47
PROVIDERS: ATTEND Internal Medicine
DX: I70.213 Atherosclerosis of native arteries of extremities with intermittent claudication, bilateral legs (principal); I70.92 Chronic total occlusion of artery of the extremities; I10 Essential (primary) hypertension; E78.5 Hyperlipidemia, unspecified; K21.9 Gastro-esophageal reflux disease without esophagitis; F17.210 Nicotine dependence, cigarettes, uncomplicated; Z82.49 Family history of ischemic heart disease and other diseases of the circulatory system; Z79.01 Long term (current) use of anticoagulants; Z79.899 Other long term (current) drug therapy; Z79.82 Long term (current) use of aspirin; I65.23 Occlusion and stenosis of bilateral carotid arteries; I25.10 Atherosclerotic heart disease of native coronary artery without angina pectoris; Z95.1 Presence of aortocoronary bypass graft; Z95.5 Presence of coronary angioplasty implant and graft; I70.0 Atherosclerosis of aorta
CPT/HCPCS: 37226; 75625; 75716; 80048 ×2; 85025 ×2; C1769 ×9; C1894 ×4; C1725; C1874 ×2; J2250; J0360; J2001; J3010; J1644; Q9966

== ENCOUNTER 2021-07-07 05:57 | Day surgery (SDC) | payer BC ==
[2021-07-01 15:53] VITALS: BMI 24.3
[2021-07-07] MEDS ORDERED: ALPRAZolam 0.5 MG TAB PO PRN (06:03)
[2021-07-07] MEDS ORDERED: HEPARIN SODIUM,PORCINE 2,500 UNIT in SODIUM CHLORIDE 0.9% 250 ML IRRIGATION PRN (06:03)
[2021-07-07] MEDS ORDERED: ZOLPIDEM 5 MG TAB PO PRN (06:03)
[2021-07-07] MEDS ORDERED: ALPRAZolam 0.25 MG TAB PO PRN (06:03)
[2021-07-07] MEDS ORDERED: ASPIRIN 325 MG TAB PO PRN (06:03)
[2021-07-07] MEDS ORDERED: SODIUM CHLORIDE 0.9% 1,000 ML in EMPTY BAG 1 BAG IV ONE (06:03)
[2021-07-07] MEDS ORDERED: HEPARIN SODIUM,PORCINE 10,000 UNIT in SODIUM CHLORIDE 0.9% 1,000 ML IRRIGATION PRN (06:03)
[2021-07-07] MEDS ORDERED: SODIUM CHLORIDE 0.9% 1,000 ML IV ONE (06:20)
[2021-07-07 07:08] LABS: Basophils # (A) 0.1 k/uL (0-0.2); Basophils % (A) 1 %; Eosinophils # (A) 0.3 k/uL (0-0.7); Eosinophils % (A) 3 %; HCT 31.7 % (39.0-53.0); HGB 9.6 gm/dL (13.0-17.5); Hypochromasia Marked; Lymphocytes # (A) 2.2 k/uL (1.0-4.8); Lymphocytes % (A) 23 %; MCH 23.8 pg (25.0-35.0); MCHC 30.3 g/dL (31.0-37.0); MCV 78.4 fL (80.0-100.0); Mean Platelet Volume 7.2; Microcytosis Slight; Monocytes # (A) 0.6 k/uL (0-1.0); Monocytes % (A) 7 %; Neutrophils # (A) 6.1 k/uL (1.3-7.7); Neutrophils % (A) 65 %; Platelet Count 514 k/uL (150-450); RBC 4.04 m/uL (4.30-5.90); RDW 15.8 % (11.5-15.5); WBC 9.5 k/uL (3.8-10.6)
[2021-07-07] MEDS ORDERED: LIDOCAINE 1% INJ 10MG/ML (20 ML MDV) ONE (07:28)
[2021-07-07] MEDS ORDERED: fentaNYL (PF) 50 MCG/ML 2 ML AMP ONE (07:52)
[2021-07-07] MEDS ORDERED: MIDAZOLAM 2 MG/2 ML VIAL IV ONE (08:00)
[2021-07-07] MEDS ORDERED: fentaNYL (PF) 50 MCG/ML 2 ML AMP IV ONE (08:00)
[2021-07-07] MEDS ORDERED: LIDOCAINE 1% INJ 10MG/ML (20 ML MDV) SQ ONE (08:01)
[2021-07-07] MEDS ORDERED: HEPARIN SODIUM 1,000 UN/ML (10ML VL) ONE (08:09)
[2021-07-07] MEDS: HEPARIN SODIUM 1,000 UN/ML (10ML VL) IV ONE ×3 (08:12→09:10)
[2021-07-07] MEDS ORDERED: IOPAMIDOL-250 100ML BTL INTRAARTER ONE ×2 (09:12→09:32)
--- NOTE | 2021-07-07 11:58 | IR ---
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 Fluoroscopy was provided to the referring clinician. 36.6 minutes of fluoroscopy provided.
[2021-07-07] MEDS ORDERED: ALBUTEROL HFA INHALER INHALATION PRN (12:42)
[2021-07-07] MEDS ORDERED: guaiFENesin 600 MG TABLET.ER PO PRN (12:42)
[2021-07-07] MEDS ORDERED: SUCRALFATE 1 GM TAB PO PRN (12:42)
[2021-07-07] MEDS ORDERED: ACETAMINOPHEN TAB 325 MG TAB PO PRN (12:42)
[2021-07-07] MEDS ORDERED: CALCIUM CARBONATE 500 MG CHEWABLE PO PRN (12:42)
[2021-07-07] MEDS: SODIUM CHLORIDE 0.9% 1,000 ML IV SCH (17:06)
[2021-07-07] MEDS: SODIUM CHLORIDE 0.9% 1,000 ML in EMPTY BAG 1 BAG IV SCH (17:07)
[2021-07-07] MEDS ORDERED: SYMBICORT 160-4.5 MCG INHALER INHALATION SCH (20:00)
[2021-07-07] MEDS: METOPROLOL TARTRATE 25 MG TAB PO SCH (20:15)
[2021-07-07] MEDS ORDERED: ATORVASTATIN 80 MG TAB PO SCH (21:00)
[2021-07-08] MEDS: SODIUM CHLORIDE 0.9% 1,000 ML in EMPTY BAG 1 BAG IV SCH (02:53)
[2021-07-08] MEDS: SODIUM CHLORIDE 0.9% 1,000 ML IV SCH (05:49)
[2021-07-08] MEDS ORDERED: PANTOPRAZOLE 40 MG TABLET PO SCH (07:30)
[2021-07-08 07:50] VITALS: TEMP 98.2
[2021-07-08 08:37] LABS: African American GFR (CKD) >90 (>60 ml/min/1.73 sqM); Non-African American GFR(CKD) >90 (>60 ml/min/1.73 sqM)
--- NOTE | 2021-07-08 08:55 | P.OP ---
Description of Procedure: PROCEDURES PERFORMED: Selective left lower extremity runoff, UTILIZATION MANAGEMENT MANAGER and DCB of the left SFA with 5.0 x 40mm, 6.0 x250mm and 5.0 x 80mm In.Pact DCB INDICATION: Tesfaye class III claudication, lifestyle limiting HISTORY: Patient is a pleasant 61-year-old male with history of previous tobacco abuse, known PAD, coronary artery disease status post CABG. He has been inhibited by claudication of both calfs which mainly occurs after 40-50 yards. He has tried walking program without any improvement. He had ABIs which were approximately 0.6 bilaterally and ultrasounds showing concern of SFA disease bilaterally and therefore catheterization was recommended. He had diagnostic catheterization 06/29/2021 which showed obstuctive 100% SFA disease bilaterally and underwent successful stenting of the right SFA. He has still been having lifestyle limiting claudication of the left calf and therefore intervention was recommended. CONSENT:I have discussed the risks, benefits and alternative therapies for the above-mentioned procedure and for both sedation/analgesia as well as necessary blood product administration, if indicated, as they pertain to this patient. The patient has indicated understanding and acceptance of the risks and procedures discussed. PROCEDURE: After the risks, benefits and alternatives of the above mentioned procedure explained in detail with the patient, informed consent was obtained. Patient was taken to the catheterization lab and prepped and draped in usual fashion. 1% lidocaine was used to anesthetize the right femoral area. A 6- Estonian sheath was placed in the right femoral artery using modified Seldinger technique. A 5Fr Rim catheter was used to access the left common iliac and a 0.035 Amplatz Super stiff wire was advanced into the left femoral artery. Next a 65cm 6Fr destination sheath was advanced into the left common femoral artery from the contralateral approach and selective left lower extremity angiograms were performed. IV heparin was given. A 0.035 stiff Glidewire inside a 5 Estonian angled glide catheter was advanced and used to cross the lesion. Next balloon angioplasty was performed with a 4.0 balloon. Small amount of dissection was noted however not flow-limiting and without significant impact on lumen and therefore decision was made to treat with drug-coated balloons. Overlapping 5.0 x 40 mm, 6.0 x 250 mm and 5.0 x 80 mm InPact drug-coated balloon was deployed for 3 minutes each from proximal to distal SFA. The wire was pulled and final angiograms were performed. Preintervention there was no antegrade flow and 100% stenosis and postintervention there was less than 10% stenosis predominantly with a more focal 25-30% stenosis of the mid SFA with brisk unimpeded flow. There was 3 vessel runoff pre and post intervention. There were dampened pressures with a 6 Estonian sheath noted throughout the case and therefore pulled back across the iliac was performed. There was a pressure gradient difference of 70 mmHg at the level of the left common iliac where a previously identified 40-50% stenosis have been seen. This was felt best monitored at this time. Right femoral angiogram was performed however patient had diffuse disease and therefore sheath was left in place for manual pull. The patient tolerated the procedure well. Patient was transported back to the post catheterization holding area in stable condition. Conscious Sedation: Patient was monitored under the direct supervision of vision of myself for conscious sedation using Versed and fentanyl for a total duration of 127 minutes Left lower extremity: Left common femoral artery: There is mild diffuse disease. Left profunda: There is no significant stenosis. Left SFA: There is a long 100% proximal to distal SFA stenosis. Left popliteal artery: There is no significant stenosis. Left tibioperoneal trunk: There is no significant stenosis. Left anterior tibial artery: There is no significant stenosis. Left porterior tibial artery: There is no significant stenosis. Left peroneal artery: There is no significant stenosis. FINAL IMPRESSION: 1. Peripheral arterial disease as described above including 100% left SFA stenosis. 2. S/p UTILIZATION MANAGEMENT MANAGER and DCB of the left SFA 100% stenosis with overlapping 5.0 x 40mm, 6.0 x250mm and 5.0 x 80mm In.Pact DCB 3. 70mmHg pressure gradient with pullback across the left common iliac artery PLAN: 1. Aggressive risk factor modification per most recent ACC/AHA guidelines. 2. Would monitor response of SFA intervention however if patient continues to have claudication may consider intervention of left common iliac artery.
--- NOTE | 2021-07-08 08:58 | P.DS ---
Providers Attending physician: Devaughn Momin DO Primary care physician: Ildefonso Gilman MD Hospital Course: Patient is a pleasant 61-year-old male with history of coronary artery disease status post CABG, hypertension, hyperlipidemia, PAD. He does have lifestyle limiting [place] 3 claudication despite walking program and therefore patient had diagnostic angiogram approximately 1 week prior and underwent successful right SFA stenting. Patient's right claudication has improved however he still has left claudication and therefore decision was made to perform intervention on the left SFA. Patient underwent successful left SFA angioplasty from a right femoral approach with drug-coated balloon placement. On 07/18/2021 patient has been doing well without any chest pain, shortness breath, lower extremity pain and without any hematoma at right femoral site. We will discharge patient home on aspirin, Xarelto low dose and Plavix. We will see patient in the office in one week. Plan - Discharge Summary Discharge Rx Participant: Yes New Discharge Prescriptions: New Aspirin [Adult Low Dose Aspirin EC] 81 mg PO DAILY #30 tab No Action Omeprazole 40 mg PO DAILY Sucralfate [Carafate] 1 gm PO QID PRN PRN Reason: GERD Albuterol Inhaler [Ventolin Hfa Inhaler] 1 puff INHALATION RT-QID PRN PRN Reason: COPD Calcium Carbonate [Tums] 500 - 1,000 mg PO QID PRN PRN Reason: GERD Atorvastatin Calcium [Lipitor] 80 mg PO HS Metoprolol Tartrate [Lopressor] 25 mg PO BID #60 tab Acetaminophen Tab [Tylenol] 650 mg PO Q4HR PRN tab PRN Reason: Fever And/ Or Pain Rivaroxaban [Xarelto] 2.5 mg PO BID guaiFENesin [Mucinex] 1,200 mg PO Q12HR PRN tablet.er PRN Reason: Cough Clopidogrel [Plavix] 75 mg PO DAILY #90 tablet Fluticasone/Vilanterol [Breo Ellipta 200-25 Mcg Inhaler] 1 inhalation INHALATION DAILY Discharge Medication List Omeprazole 40 mg PO DAILY 10/24/19 [History] Sucralfate [Carafate] 1 gm PO QID PRN 10/25/19 [History] Albuterol Inhaler [Ventolin Hfa Inhaler] 1 puff INHALATION RT-QID PRN 05/17/21 [History] Atorvastatin Calcium [Lipitor] 80 mg PO HS 05/17/21 [History] Calcium Carbonate [Tums] 500 - 1,000 mg PO QID PRN 05/17/21 [History] Rivaroxaban [Xarelto] 2.5 mg PO BID 05/17/21 [History] Acetaminophen Tab [Tylenol] 650 mg PO Q4HR PRN tab 05/24/21 [Rx] Metoprolol Tartrate [Lopressor] 25 mg PO BID #60 tab 05/24/21 [Rx] guaiFENesin [Mucinex] 1,200 mg PO Q12HR PRN tablet.er 05/24/21 [Rx] Clopidogrel [Plavix] 75 mg PO DAILY #90 tablet 06/30/21 [Rx] Fluticasone/Vilanterol [Breo Ellipta 200-25 Mcg Inhaler] 1 inhalation INHALATION DAILY 07/01/21 [History] Aspirin [Adult Low Dose Aspirin EC] 81 mg PO DAILY #30 tab 07/08/21 [Rx]
[2021-07-08] MEDS ORDERED: CLOPIDOGREL 75 MG TAB PO SCH (09:00)
[2021-07-08] MEDS ORDERED: ASPIRIN 81 MG PO SCH (09:00)
[2021-07-08] MEDS: METOPROLOL TARTRATE 25 MG TAB PO SCH (09:26)
[2021-07-08 09:30] VITALS: BP 105/60; PULSE 67; RESP 14
== END 2021-07-08 10:22 | disposition home or self-care (01) ==
LOC: CATHCVL 05:57 → 6NMEDSUR 09:51 → CATHCVL 07-08 10:22
PROVIDERS: ATTEND Internal Medicine
DX: I70.213 Atherosclerosis of native arteries of extremities with intermittent claudication, bilateral legs (principal); E78.5 Hyperlipidemia, unspecified; I10 Essential (primary) hypertension; I25.10 Atherosclerotic heart disease of native coronary artery without angina pectoris; Z79.01 Long term (current) use of anticoagulants; Z79.02 Long term (current) use of antithrombotics/antiplatelets; Z79.82 Long term (current) use of aspirin; Z95.1 Presence of aortocoronary bypass graft; F17.290 Nicotine dependence, other tobacco product, uncomplicated
CPT/HCPCS: 37224; 82565; 85025; C1769 ×7; C1894 ×4; C1725; C2623 ×2; J2250; J2001; J3010; J1644; Q9966

== ENCOUNTER 2021-07-09 13:04 | Observation (INO) | payer BC ==
--- NOTE | 2021-07-09 14:08 | ED ---
Extremity Problem HPI - General Chief complaint: Extremity Problem,Nontraumatic Stated complaint: leg swelling post angioplasty Time Seen by Provider: 07/09/21 13:50 Source: patient, RN notes reviewed Mode of arrival: ambulatory Limitations: no limitations - History of Present Illness Initial comments: This a 61-year-old male presents emergency Department chief complaint of right groin swelling and pain. Patient states that he had a heart cath performed a couple days ago. Patient states she's had increasing pain and swelling no symptoms throughout possible pseudoaneurysm. Patient denies any other complaints or chest pain or shortness breath. - Related Data Home Medications Medication Instructions Recorded Confirmed Omeprazole 40 mg PO DAILY 10/24/19 07/09/21 Sucralfate [Carafate] 1 gm PO ACHS PRN 10/25/19 07/09/21 Albuterol Inhaler [Ventolin Hfa 1 puff INHALATION RT-QID PRN 05/17/21 07/09/21 Inhaler] Atorvastatin Calcium [Lipitor] 80 mg PO HS 05/17/21 07/09/21 Calcium Carbonate [Tums] 500 - 1,000 mg PO QID PRN 05/17/21 07/09/21 Rivaroxaban [Xarelto] 2.5 mg PO BID 05/17/21 07/09/21 Fluticasone/Vilanterol [Breo 1 puff INHALATION RT-DAILY 07/01/21 07/09/21 Ellipta 200-25 Mcg Inhaler] guaiFENesin [Mucinex] 1,200 mg PO Q12H PRN 07/09/21 07/09/21 Previous Rx's Medication Instructions Recorded Acetaminophen Tab [Tylenol] 650 mg PO Q4HR PRN tab 05/24/21 Metoprolol Tartrate [Lopressor] 25 mg PO BID #60 tab 05/24/21 Clopidogrel [Plavix] 75 mg PO DAILY #90 tablet 06/30/21 Aspirin [Adult Low Dose Aspirin EC] 81 mg PO DAILY #30 tab 07/08/21 Allergies Allergy/AdvReac Type Severity Reaction Status Date / Time moxifloxacin HCl Allergy Anaphylaxis Verified 07/09/21 16:53 [From Avelox] Review of Systems ROS Statement: Those systems with pertinent positive or pertinent negative responses have been documented in the HPI. ROS Other: All systems not noted in ROS Statement are negative. Past Medical History Past Medical History: Coronary Artery Disease (CAD), COPD, GERD/Reflux, Hearing Disorder / Deafness, Hyperlipidemia, Hypertension, Vascular Disorder Additional Past Medical History / Comment(s): Wears hearing aids. states has john legs peripheral vascular disorder, claudication, Edema Rt leg; bilateral internal carotid artery stenosis 50-79% History of Any Multi-Drug Resistant Organisms: None Reported Past Surgical History: Coronary Bypass/CABG, Heart Catheterization With Stent Additional Past Surgical History / Comment(s): heart stents x 2, CABG 05/20/21- triple bypass, skin tag removed from buttocks, hemorrhoidectomy, abd. aortogram & stent right SFA 06-29-21 Past Anesthesia/Blood Transfusion Reactions: Previous Problems w/ Anesthesia Additional Past Anesthesia/Blood Transfusion Reaction / Comment(s): "hard time coming out of it" Date of Last Stent Placement:: 1999 Past Psychological History: No Psychological Hx Reported Smoking Status: Former smoker Past Alcohol Use History: None Reported Past Drug Use History: None Reported - Past Family History Mother Family Medical History: No Reported History Father Family Medical History: Cancer Additional Family Medical History / Comment(s): prostate General Exam Limitations: no limitations Course Vital Signs 07/09/21 07/09/21 14:01 19:13 Temperature 98.4 F Pulse Rate 63 63 Respiratory 20 20 Rate Blood Pressure 117/65 113/63 O2 Sat by Pulse 99 97 Oximetry Medical Decision Making - Medical Decision Making 61-year-old presented for right groin pain mild, swelling the right leg. Patient symptoms started overnight. Patient found to have an AV fistula on the right from prior procedure. I did attempt to contact his bulk receiver for the procedure that he was unavailable, did discuss case with Dr. Whitaker. I also contact Dr. clay vascular surgeon recommended CT angiogram. This was performed showing that she straining, evidence of AV fistula. Patient will be admitted for further evaluation and treatment. - Lab Data Result diagrams: 07/09/21 17:16 07/09/21 17:16 Lab Results 07/09/21 07/09/21 07/09/21 Range/Units 17:16 17:16 17:16 WBC 9.6 (3.8-10.6) k/uL RBC 3.77 L (4.30-5.90) m/uL Hgb 8.9 L (13.0-17.5) gm/dL Hct 28.8 L (39.0-53.0) % MCV 76.2 L (80.0-100.0) fL MCH 23.5 L (25.0-35.0) pg MCHC 30.8 L (31.0-37.0) g/dL RDW 15.9 H (11.5-15.5) % Plt Count 529 H (150-450) k/uL MPV 6.8 Neutrophils % 64 % Lymphocytes % 22 % Monocytes % 6 % Eosinophils % 4 % Basophils % 1 % Neutrophils # 6.2 (1.3-7.7) k/uL Lymphocytes # 2.1 (1.0-4.8) k/uL Monocytes # 0.6 (0-1.0) k/uL Eosinophils # 0.4 (0-0.7) k/uL Basophils # 0.1 (0-0.2) k/uL Hypochromasia Marked Microcytosis Slight PT 10.6 (9.0-12.0) sec INR 1.0 (<1.2) APTT 23.0 (22.0-30.0) sec Sodium 139 (137-145) mmol/L Potassium 4.5 (3.5-5.1) mmol/L Chloride 106 (98-107) mmol/L Carbon Dioxide 25 (22-30) mmol/L Anion Gap 8 mmol/L BUN 19 (9-20) mg/dL Creatinine 0.67 (0.66-1.25) mg/dL Est GFR (CKD-EPI)AfAm >90 (>60 ml/min/1.73 sqM) Est GFR (CKD-EPI)NonAf >90 (>60 ml/min/1.73 sqM) Glucose 110 H (74-99) mg/dL Calcium 8.9 (8.4-10.2) mg/dL Disposition Clinical Impression: Right leg swelling, Femoral arteriovenous fistula, right Disposition: ADMITTED IP TO THIS HOSP Condition: Fair Referrals: Ildefonso Gilman MD [Primary Care Provider] - 1-2 days
--- NOTE | 2021-07-09 15:29 | US ---
EXAMINATION TYPE: US lower ext pseudo artery RT DATE OF EXAM: 07/09/2021 COMPARISON: NONE CLINICAL HISTORY: pain, swelling. EC patient with right leg swelling today; post right groin cardiac catheterization on 07/07/2021 for leg leg balloon angioplasty. Prior week had left groin cardiac delgado terization for right femoral artery stent. EXAM PERFORMED: Grayscale and color Doppler duplex imaging performed of the groin, post cardiac delgado ter to assess for pseudoaneurysm. SIDE PERFORMED: right Color and Waveform Doppler performed to assess for the presence of pseudoaneurysm; Is there ultrasound evidence of a pseudoaneurysm: no Is there evidence of AV shunting: yes, noted in multiple views with color flow in external iliac vein /CFV at site of needle insert for right groin cardiac catheterization. Fistula neck to vein is noted in multiple views. Pulsatile venous flow noted in upper Femoral Vein, and in upper Deep Femoral Vein with return to normal phasic venous flow in right Femoral Vein. Is there a fluid collection present: no IMPRESSION: 1. Findings are suggestive of AV shunting and probable AV fistula as discussed above.
[2021-07-09] MEDS ORDERED: RX INFO: IV CONTRAST WAS GIVEN 1 EACH MISC MISCELLANE PRN (16:56)
[2021-07-09] MEDS ORDERED: SODIUM CHLORIDE 0.9% 1,000 ML IV ONE (17:24)
[2021-07-09 17:32] LABS: Basophils # (A) 0.1 k/uL (0-0.2); Basophils % (A) 1 %; Eosinophils # (A) 0.4 k/uL (0-0.7); Eosinophils % (A) 4 %; HCT 28.8 % (39.0-53.0); HGB 8.9 gm/dL (13.0-17.5); Hypochromasia Marked; Lymphocytes # (A) 2.1 k/uL (1.0-4.8); Lymphocytes % (A) 22 %; MCH 23.5 pg (25.0-35.0); MCHC 30.8 g/dL (31.0-37.0); MCV 76.2 fL (80.0-100.0); Mean Platelet Volume 6.8; Microcytosis Slight; Monocytes # (A) 0.6 k/uL (0-1.0); Monocytes % (A) 6 %; Neutrophils # (A) 6.2 k/uL (1.3-7.7); Neutrophils % (A) 64 %; Platelet Count 529 k/uL (150-450); Prothrombin Time 10.6 sec (9.0-12.0); RBC 3.77 m/uL (4.30-5.90); RDW 15.9 % (11.5-15.5); WBC 9.6 k/uL (3.8-10.6)
[2021-07-09 17:42] LABS: African American GFR (CKD) >90 (>60 ml/min/1.73 sqM); Anion Gap 8 mmol/L; Blood Urea Nitrogen 19 mg/dL (9-20); Calcium 8.9 mg/dL (8.4-10.2); Carbon Dioxide 25 mmol/L (22-30); Chloride 106 mmol/L (98-107); Glucose 110 mg/dL (74-99); Non-African American GFR(CKD) >90 (>60 ml/min/1.73 sqM); Potassium 4.5 mmol/L (3.5-5.1); Sodium 139 mmol/L (137-145)
--- NOTE | 2021-07-09 19:14 | CT ---
EXAMINATION TYPE: CT angio abd aorta w/Runoff DATE OF EXAM: 07/09/2021 COMPARISON: Same day right lower extremity pseudoaneurysm ultrasound HISTORY: RT groin pain, swelling, fistula. CT DLP: 2293.4 mGycm, Automated Exposure Control for Dose Reduction was Utilized. CONTRAST: CT scan of the abdomen and pelvis is performed with oral and with IV Contrast, patient injected with 100 mL of Isovue 370. FINDINGS: VASCULAR: Abdominal aorta is normal in caliber with moderate to marked noncalcified and calcified atherosclerot ic disease. No abdominal aortic aneurysm or dissection. The origin of the celiac trunk is patent. The proximal superior mesenteric artery demonstrates a 14 mm eccentric mural thrombus versus noncalcifie d plaque, with 50-70% stenosis of the proximal superior mesenteric artery. The origins of the bilater al renal arteries appear patent. The FELICITY is proximally opacified. There is calcified atherosclerotic disease of the bilateral common, external, and internal iliacs. Th ere is inflammatory stranding of the right groin. 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 There is asymmetric enlargement of the right common femoral vein versus the left. There is a right superficial femoral ar lashell stent. There is three-vessel runoff to the left foot. There is one-vessel runoff to the right fo ot via the posterior tibial artery, with the peroneal artery and anterior tibial artery seen to the l evel of the ankle. NONVASCULAR: LUNG BASES: No significant abnormality is appreciated. LIVER/GB: No significant abnormality is appreciated. PANCREAS: No significant abnormality is seen. SPLEEN: No significant abnormality is seen. ADRENALS: No significant abnormality is seen. KIDNEYS: No significant abnormality is seen. BOWEL: No bowel obstruction or thickening. PELVIS: No gross abnormality seen. LYMPH NODES: No greater than 1cm abdominal or pelvic lymph nodes are appreciated. OSSEOUS STRUCTURES: No significant abnormality is seen. PERITONEUM: No pneumoperitoneum or ascites. IMPRESSION: 1. There is appearance of AV fistula of the right common femoral artery with the common femoral vein . 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 2. The superior mesenteric artery demonstrates 14 mm of proximal eccentric mural thrombus versus non calcified plaque, with 50-70% stenosis.
[2021-07-09] MEDS ORDERED: ACETAMINOPHEN TAB 325 MG TAB PO PRN (19:32)
[2021-07-09] MEDS ORDERED: NALOXONE 0.4 MG/ML 1 ML VIAL IV PRN (19:32)
[2021-07-10] MEDS: METOPROLOL TARTRATE 25 MG TAB PO SCH ×2 (02:35→12:24)
[2021-07-10 07:07] VITALS: BP 114/59; PULSE 63; RESP 16; TEMP 98.2
[2021-07-10] MEDS ORDERED: guaiFENesin 600 MG TABLET.ER PO PRN (08:50)
[2021-07-10] MEDS ORDERED: SUCRALFATE 1 GM TAB PO PRN (08:50)
[2021-07-10] MEDS ORDERED: ALBUTEROL NEBULIZED 2.5 MG/3 ML INHALATION PRN (08:50)
[2021-07-10] MEDS ORDERED: PANTOPRAZOLE 40 MG TABLET PO SCH (09:00)
[2021-07-10] MEDS ORDERED: CLOPIDOGREL 75 MG TAB PO SCH (12:10)
--- NOTE | 2021-07-10 12:42 | P.DS ---
Providers Date of admission: 07/09/21 22:51 Expected date of discharge: 07/10/21 Attending physician: Carolina Plummer MD Consults: 07/09/21 19:34 Consult Physician Urgent Consulting Provider: Cornell Maradiaga Consult Reason/Comments: AV fistula femoral Do you want consulting provider notified?: Yes 07/10/21 08:50 Consult Physician Routine Consulting Provider: Devaughn Momin Consult Reason/Comments: recent cath Do you want consulting provider notified?: Yes Primary care physician: Ildefonso Gilman MD Hospital Course: This is a 61-year-old male with past medical history noted below significant for peripheral vascular occlusive disease status post recent angiogram of the right lower extremity with stent placement by cardiology. Patient presented to the ER with worsening right groin swelling and pain. He was evaluated and CT angiogram showed evidence of an AV fistula of the right common femoral artery with the common femoral vein. Patient was seen and evaluated by cardiology and vascular surgery. Compression applied as directed by vascular surgery. Plan to discontinue Rivaroxaban. Cardiology allowed to continue Plavix and aspirin at this time. Patient was cleared for discharge home. He is scheduled to follow- up with cardiology and vascular surgery in the office on 07/12 and 07/13. Outpatient ultrasound for follow-up ordered. Patient will be discharged home in a stable condition. He was seen and evaluated by me on the day of discharge. Physical exam: General: The patient is awake and alert, in no distress Eye: there is normal conjunctiva bilaterally. Neck: The neck is supple, there is no JVD. Cardiovascular: Normal S1-S2, no S3-S4, no murmurs. Respiratory: Lungs clear to auscultation bilaterally Gastrointestinal: Abdomen is soft, nontender Musculoskeletal: There is no pedal edema. Neurological:. Speech is normal. Skin: Skin is warm and dry Patient Condition at Discharge: Fair Plan - Discharge Summary Discharge Rx Participant: No New Discharge Prescriptions: Continue Omeprazole 40 mg PO DAILY Sucralfate [Carafate] 1 gm PO ACHS PRN PRN Reason: GERD Albuterol Inhaler [Ventolin Hfa Inhaler] 1 puff INHALATION RT-QID PRN PRN Reason: COPD Calcium Carbonate [Tums] 500 - 1,000 mg PO QID PRN PRN Reason: GERD Atorvastatin Calcium [Lipitor] 80 mg PO HS Metoprolol Tartrate [Lopressor] 25 mg PO BID #60 tab Acetaminophen Tab [Tylenol] 650 mg PO Q4HR PRN tab PRN Reason: Fever And/ Or Pain Clopidogrel [Plavix] 75 mg PO DAILY #90 tablet Fluticasone/Vilanterol [Breo Ellipta 200-25 Mcg Inhaler] 1 puff INHALATION RT-DAILY Aspirin [Adult Low Dose Aspirin EC] 81 mg PO DAILY #30 tab guaiFENesin [Mucinex] 1,200 mg PO Q12H PRN PRN Reason: Cough Discontinued Rivaroxaban [Xarelto] 2.5 mg PO BID Discharge Medication List Omeprazole 40 mg PO DAILY 10/24/19 [History] Sucralfate [Carafate] 1 gm PO ACHS PRN 10/25/19 [History] Albuterol Inhaler [Ventolin Hfa Inhaler] 1 puff INHALATION RT-QID PRN 05/17/21 [History] Atorvastatin Calcium [Lipitor] 80 mg PO HS 05/17/21 [History] Calcium Carbonate [Tums] 500 - 1,000 mg PO QID PRN 05/17/21 [History] Acetaminophen Tab [Tylenol] 650 mg PO Q4HR PRN tab 05/24/21 [Rx] Metoprolol Tartrate [Lopressor] 25 mg PO BID #60 tab 05/24/21 [Rx] Clopidogrel [Plavix] 75 mg PO DAILY #90 tablet 06/30/21 [Rx] Fluticasone/Vilanterol [Breo Ellipta 200-25 Mcg Inhaler] 1 puff INHALATION RT- DAILY 07/01/21 [History] Aspirin [Adult Low Dose Aspirin EC] 81 mg PO DAILY #30 tab 07/08/21 [Rx] guaiFENesin [Mucinex] 1,200 mg PO Q12H PRN 07/09/21 [History] Follow up Appointment(s)/Referral(s): Devaughn Momin DO [STAFF PHYSICIAN] - 07/12/21 2:30 pm Cornell Maradiaga DO [STAFF PHYSICIAN] - 07/13/21 (US right groin Monday if possible or Monday in office at appointment Message left at office. Will need to call Monday morning for appointment on Monday ) Ildefonso Gilman MD [Primary Care Provider] - 1-2 days (please call Monday am for appointment time) Discharge Disposition: HOME SELF-CARE Care Plan Goals (MU): Keep right groin pressure dressing on as Dr Maradiaga placed it. Wear compression stockings. Elevate legs.
--- NOTE | 2021-07-10 14:37 | P.CRDCN ---
History of Present Illness Consult date: 07/10/21 Requesting physician: Shama Pedraza Reason for Consult (text): recent cath Chief complaint: right lower extremity edema History of present illness: This is a pleasant 61-year-old gentleman followed in the office with Dr. Momin. He has a history of CAD with stenting many years ago, recent coronary artery bypass grafting in April of this year and subsequent peripheral interventions. On 06/29/2021 he underwent stenting of the right SFA with left groin access. Subsequently on 07/07/2021 he underwent intervention of the left SFA with right groin access. Both procedures were done by Dr. Momin. Patient presented to the emergency department with complaints of right lower extremity swelling which he had not been experiencing in the past. He underwent ultrasound of the right lower extremity to assess for pseudoaneurysm which was negative for pseudoaneurysm but didn't show findings suggestive of AV shunting and probably AV fistula. 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 Also showed superior mesenteric artery demonstrating 14 mm a proximal eccentric mural thrombus versus noncalcified plaque with 50-70% stenosis. Lipitor evaluation a hemoglobin of 8. 9 which is relatively stable since CABG. Patient was seen and evaluated this morning by Dr. Bryant who according to nursing staff applied pressure dressing to the right groin and is planning for patient to have repeat ultrasound on Monday and follow-up in the office Monday. Upon examination the patient is resting comfortably in bed. Continues to have right lower extremity edema. Denies any shortness of breath, chest discomfort, palpitations, orthopnea or PND. He is overall been feeling well up until this point. She was planning to start cardiac rehab on Monday and was advised to postpone this. Past Medical History Past Medical History: Coronary Artery Disease (CAD), COPD, GERD/Reflux, Hearing Disorder / Deafness, Hyperlipidemia, Hypertension, Vascular Disorder Additional Past Medical History / Comment(s): Wears hearing aids. states has john legs peripheral vascular disorder, claudication, Edema Rt leg; bilateral i nternal carotid artery stenosis 50-79% History of Any Multi-Drug Resistant Organisms: None Reported Past Surgical History: Coronary Bypass/CABG, Heart Catheterization With Stent Additional Past Surgical History / Comment(s): heart stents x 2 15-18 years yousuf, CABG 05/20/21-triple bypass, skin tag removed from buttocks, hemorrhoidectomy, abd. aortogram & stent right SFA 06-29-21. Pt had angioplasty & stenting to R leg 06/29/21. Angioplasty to left leg 07/07/21. Past Anesthesia/Blood Transfusion Reactions: Previous Problems w/ Anesthesia Additional Past Anesthesia/Blood Transfusion Reaction / Comment(s): "hard time coming out of it" Date of Last Stent Placement:: 1999 Past Psychological History: No Psychological Hx Reported Smoking Status: Former smoker Past Alcohol Use History: Occasional Additional Past Alcohol Use History / Comment(s): Pt states he started smoking around 1971 was 1-1.5 ppd, quit April 2021. Past Drug Use History: None Reported - Past Family History Mother Family Medical History: No Reported History Father Family Medical History: Cancer Additional Family Medical History / Comment(s): prostate Medications and Allergies Home Medications Medication Instructions Recorded Confirmed Type Omeprazole 40 mg PO DAILY 10/24/19 07/09/21 History Sucralfate [Carafate] 1 gm PO ACHS PRN 10/25/19 07/09/21 History Albuterol Inhaler [Ventolin Hfa 1 puff INHALATION RT-QID PRN 05/17/21 07/09/21 History Inhaler] Atorvastatin Calcium [Lipitor] 80 mg PO HS 05/17/21 07/09/21 History Calcium Carbonate [Tums] 500 - 1,000 mg PO QID PRN 05/17/21 07/09/21 History Acetaminophen Tab [Tylenol] 650 mg PO Q4HR PRN tab 05/24/21 07/09/21 Rx Metoprolol Tartrate [Lopressor] 25 mg PO BID #60 tab 05/24/21 07/09/21 Rx Clopidogrel [Plavix] 75 mg PO DAILY #90 tablet 06/30/21 07/09/21 Rx Fluticasone/Vilanterol [Breo 1 puff INHALATION RT-DAILY 07/01/21 07/09/21 History Ellipta 200-25 Mcg Inhaler] Aspirin [Adult Low Dose Aspirin EC] 81 mg PO DAILY #30 tab 07/08/21 07/09/21 Rx guaiFENesin [Mucinex] 1,200 mg PO Q12H PRN 07/09/21 07/09/21 History Allergies Allergy/AdvReac Type Severity Reaction Status Date / Time moxifloxacin HCl Allergy Anaphylaxis Verified 07/09/21 16:53 [From Avelox] Physical Exam Vitals: Vital Signs Temp Pulse Pulse Resp BP BP Pulse Ox 07/10/21 08:00 16 07/10/21 07:00 98.2 F 63 16 114/59 98 07/10/21 02:00 68 07/10/21 01:17 97.8 F 68 14 107/67 96 07/10/21 00:30 77 16 07/10/21 00:05 98.0 F 77 16 145/72 98 07/09/21 23:57 98.4 F 74 16 137/78 98 07/09/21 19:13 63 20 113/63 97 Intake and Output 07/09/21 07/10/21 07/10/21 22:59 06:59 14:59 Intake Total 0 200 Balance 0 200 Intake: Oral 0 200 Other: Voiding Method Toilet Toilet Weight 77.111 kg PHYSICAL EXAMINATION: This is a 61-year-old male in no apparent distress at the time of my examination. VITAL SIGNS: Blood pressure 114/59, heart rate 63, respirations 16, temp 98.2F. Patient is 98 % on room air. HEENT: Head is atraumatic, normocephalic. Pupils are equal, round. Sclerae anicteric. Conjunctivae are clear. Mucous membranes of the mouth are moist. Neck is supple. There is no elevated jugular venous pressure. No carotid bruit is heard. CHEST EXAMINATION: Clear to auscultation bilaterally. No wheezes rales or rhonchi. Respirations even and nonlabored. HEART EXAMINATION: Heart regular, positive S1 and S2. No S3. No S4. No clicks, rubs or murmurs. ABDOMEN: Soft, nontender. Bowel sounds are heard. No organomegaly noted. EXTREMITIES: Diminished peripheral pulses with moderate right lower extremity edema involving the entire leg. NEUROLOGIC EXAMINATION: Patient is awake, alert and oriented x3. Results 07/09/21 17:16 07/09/21 17:16 Coagulation 07/09/21 Range/Units 17:16 PT 10.6 (9.0-12.0) sec APTT 23.0 (22.0-30.0) sec CBC 07/09/21 Range/Units 17:16 WBC 9.6 (3.8-10.6) k/uL RBC 3.77 L (4.30-5.90) m/uL Hgb 8.9 L (13.0-17.5) gm/dL Hct 28.8 L (39.0-53.0) % Plt Count 529 H (150-450) k/uL Comprehensive Metabolic Panel 07/09/21 Range/Units 17:16 Sodium 139 (137-145) mmol/L Potassium 4.5 (3.5-5.1) mmol/L Chloride 106 (98-107) mmol/L Carbon Dioxide 25 (22-30) mmol/L BUN 19 (9-20) mg/dL Creatinine 0.67 (0.66-1.25) mg/dL Glucose 110 H (74-99) mg/dL Calcium 8.9 (8.4-10.2) mg/dL Intake and Output 07/09/21 07/10/21 07/10/21 22:59 06:59 14:59 Intake Total 0 200 Balance 0 200 Intake: Oral 0 200 Other: Voiding Method Toilet Toilet Weight 77.111 kg 07/09/21 17:16 07/09/21 17:16 Assessment and Plan Assessment: #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 Patient is stable for discharge home and will follow-up next week in the office with Dr. Momin. OPERATIONS RESEARCH ANALYST note has been reviewed, I agree with a documented findings and plan of care. Patient was seen and examined.
--- NOTE | 2021-07-10 15:39 | P.GSCN ---
History of Present Illness Consult date: 07/10/21 Reason for Consult: right femoral avf History of present illness: 61 year old male with history of recent lower extremity angiogram with revasc ularization via right femoral access presented to the hospital with acute onset of right lower extremity swelling and pain in the right groin. He underwent ultrasound and CTA which demonstrated a right femoral artery to femoral vein iatrogenic fistula. He states currently he is doing well but having some swelling in his right leg. He denies any fevers, chills, chest pain or shortness of breath. Review of Systems All systems: negative (what is mentioned in the HPI or PMH) Past Medical History Past Medical History: Coronary Artery Disease (CAD), COPD, GERD/Reflux, Hearing Disorder / Deafness, Hyperlipidemia, Hypertension, Vascular Disorder Additional Past Medical History / Comment(s): Wears hearing aids. states has john legs peripheral vascular disorder, claudication, Edema Rt leg; bilateral internal carotid artery stenosis 50-79% History of Any Multi-Drug Resistant Organisms: None Reported Past Surgical History: Coronary Bypass/CABG, Heart Catheterization With Stent Additional Past Surgical History / Comment(s): heart stents x 2 15-18 years yousuf, CABG 05/20/21-triple bypass, skin tag removed from buttocks, hemorrhoidectomy, abd. aortogram & stent right SFA 06-29-21. Pt had angioplasty & stenting to R leg 06/29/21. Angioplasty to left leg 07/07/21. Past Anesthesia/Blood Transfusion Reactions: Previous Problems w/ Anesthesia Additional Past Anesthesia/Blood Transfusion Reaction / Comm: "hard time coming out of it" Date of Last Stent Placement:: 1999 Past Psychological History: No Psychological Hx Reported Smoking Status: Former smoker Past Alcohol Use History: Occasional Additional Past Alcohol Use History / Comment(s): Pt states he started smoking around 1971 was 1-1.5 ppd, quit April 2021. Past Drug Use History: None Reported - Past Family History Mother Family Medical History: No Reported History Father Family Medical History: Cancer Additional Family Medical History / Comment(s): prostate Medications and Allergies Home Medications Medication Instructions Recorded Confirmed Type Omeprazole 40 mg PO DAILY 10/24/19 07/09/21 History Sucralfate [Carafate] 1 gm PO ACHS PRN 10/25/19 07/09/21 History Albuterol Inhaler [Ventolin Hfa 1 puff INHALATION RT-QID PRN 05/17/21 07/09/21 History Inhaler] Atorvastatin Calcium [Lipitor] 80 mg PO HS 05/17/21 07/09/21 History Calcium Carbonate [Tums] 500 - 1,000 mg PO QID PRN 05/17/21 07/09/21 History Acetaminophen Tab [Tylenol] 650 mg PO Q4HR PRN tab 05/24/21 07/09/21 Rx Metoprolol Tartrate [Lopressor] 25 mg PO BID #60 tab 05/24/21 07/09/21 Rx Clopidogrel [Plavix] 75 mg PO DAILY #90 tablet 06/30/21 07/09/21 Rx Fluticasone/Vilanterol [Breo 1 puff INHALATION RT-DAILY 07/01/21 07/09/21 History Ellipta 200-25 Mcg Inhaler] Aspirin [Adult Low Dose Aspirin EC] 81 mg PO DAILY #30 tab 07/08/21 07/09/21 Rx guaiFENesin [Mucinex] 1,200 mg PO Q12H PRN 07/09/21 07/09/21 History Allergies Allergy/AdvReac Type Severity Reaction Status Date / Time moxifloxacin HCl Allergy Anaphylaxis Verified 07/09/21 16:53 [From Avelox] Surgical - Exam Vital Signs Temp Pulse Resp BP Pulse Ox 98.4 F 63 20 117/65 99 07/09/21 14:01 07/09/21 14:01 07/09/21 14:01 07/09/21 14:01 07/09/21 14:01 - General well developed, well nourished, no distress - Eyes PERRL, normal ocular movement - ENT normal pinna, normal nares - Neck no masses, no bruits - Respiratory normal expansion, normal respiratory effort - Cardiovascular Rhythm: regular - Abdomen Abdomen: soft, non tender - Integumentary no rash - Neurologic normal coordination, normal sensation - Psychiatric oriented to time, oriented to person, oriented to place, speech is normal palpable femoral pulse. Moderate tenderness right groin. good capillary refill bilateral feet. No signs of ischemia. Right leg with 2+ edema. Results - Labs 07/09/21 17:16 07/09/21 17:16 Abnormal Lab Results - Last 24 Hours (Table) 07/09/21 07/09/21 Range/Units 17:16 17:16 RBC 3.77 L (4.30-5.90) m/uL Hgb 8.9 L (13.0-17.5) gm/dL Hct 28.8 L (39.0-53.0) % MCV 76.2 L (80.0-100.0) fL MCH 23.5 L (25.0-35.0) pg MCHC 30.8 L (31.0-37.0) g/dL RDW 15.9 H (11.5-15.5) % Plt Count 529 H (150-450) k/uL Glucose 110 H (74-99) mg/dL Diabetes panel 07/09/21 Range/Units 17:16 Sodium 139 (137-145) mmol/L Potassium 4.5 (3.5-5.1) mmol/L Chloride 106 (98-107) mmol/L Carbon Dioxide 25 (22-30) mmol/L BUN 19 (9-20) mg/dL Creatinine 0.67 (0.66-1.25) mg/dL Glucose 110 H (74-99) mg/dL Calcium 8.9 (8.4-10.2) mg/dL Calcium panel 07/09/21 Range/Units 17:16 Calcium 8.9 (8.4-10.2) mg/dL Pituitary panel 07/09/21 Range/Units 17:16 Sodium 139 (137-145) mmol/L Potassium 4.5 (3.5-5.1) mmol/L Chloride 106 (98-107) mmol/L Carbon Dioxide 25 (22-30) mmol/L BUN 19 (9-20) mg/dL Creatinine 0.67 (0.66-1.25) mg/dL Glucose 110 H (74-99) mg/dL Calcium 8.9 (8.4-10.2) mg/dL Adrenal panel 07/09/21 Range/Units 17:16 Sodium 139 (137-145) mmol/L Potassium 4.5 (3.5-5.1) mmol/L Chloride 106 (98-107) mmol/L Carbon Dioxide 25 (22-30) mmol/L BUN 19 (9-20) mg/dL Creatinine 0.67 (0.66-1.25) mg/dL Glucose 110 H (74-99) mg/dL Calcium 8.9 (8.4-10.2) mg/dL - Imaging Comments: reviewed CTA and right groin ultrasound. Assessment and Plan Assessment: 1. Right femoral artery to femoral vein AVF 2. History of lower extremity angiogram with intervention 3. Peripheral arterial disease with claudication Plan: Pressure dressing placed right groin. No surgical intervention at this time. If swelling persists or increased pain then would potentially need intervention in the future. Will obtain another ultrasound early next week and see in office Monday. Discussed importance of elevation and compression for right lower extremity.
[2021-07-10] MEDS ORDERED: ATORVASTATIN 80 MG TAB PO SCH (21:00)
[2021-07-11] MEDS ORDERED: SYMBICORT 160-4.5 MCG INHALER INHALATION SCH (08:00)
== END 2021-07-10 13:15 | disposition home or self-care (01) ==
LOC: EC 13:04 → 6NMEDSUR 22:51
PROVIDERS: ADMIT Internal Medicine; ATTEND Internal Medicine
DX: M79.89 Other specified soft tissue disorders (principal); I77.0 Arteriovenous fistula, acquired; I73.9 Peripheral vascular disease, unspecified; Z20.822 Contact with and (suspected) exposure to COVID-19; Z79.02 Long term (current) use of antithrombotics/antiplatelets; I10 Essential (primary) hypertension; I25.10 Atherosclerotic heart disease of native coronary artery without angina pectoris; J44.9 Chronic obstructive pulmonary disease, unspecified; Z79.01 Long term (current) use of anticoagulants; H91.90 Unspecified hearing loss, unspecified ear; E78.5 Hyperlipidemia, unspecified; Z79.82 Long term (current) use of aspirin; Z79.899 Other long term (current) drug therapy; Z87.891 Personal history of nicotine dependence; Z95.1 Presence of aortocoronary bypass graft; Z95.5 Presence of coronary angioplasty implant and graft; Z97.4 Presence of external hearing-aid
CPT/HCPCS: 99285; 96360; 36415; 80048; 85025; 85610; 85730; 87635; 93975; 93926; 75635; G0378 ×2; Q9967

== ENCOUNTER → 2021-10-01 | Outpatient (CLI) | payer BC ==
[2021-10-01 22:55] LABS: HCT 30.1 % (39.6-50.0); HGB 8.3 g/dL (13.0-17.0); MCH 19.4 pg (27.0-32.0); MCHC 27.6 g/dL (32.0-37.0); MCV 70.5 fL (80.0-97.0); Mean Platelet Volume 9.8 fL (9.5-12.2); Platelet Count 433 X 10*3/uL (140-440); RBC 4.27 X 10*6/uL (4.40-5.60); RDW 18.1 % (11.5-14.5); WBC 11.05 X 10*3/uL (4.50-10.00)
[2021-10-02 00:34] LABS: Basophils # (A) 0.07 X 10*3/uL (0.00-0.10); Basophils % (A) 0.6 %; Eosinophils # (A) 0.18 X 10*3/uL (0.04-0.35); Eosinophils % (A) 1.6 %; Hypochromasia (M) 2+; Lymphocytes # (A) 2.43 X 10*3/uL (0.90-5.00); Microcytosis (M) 2+; Monocytes # (A) 0.99 X 10*3/uL (0.20-1.00); Neutrophils # (A) 7.33 X 10*3/uL (1.80-7.70); Neutrophils % (A) 66.3 %
[2021-10-02 03:17] LABS: African American GFR (CKD) 110.2 (60.0-200.0); Albumin 4.4 g/dL (3.8-4.9); Anion Gap 12.7 mmol/L (10.00-18.00); BUN/Creat Ratio 33.38 Ratio (12.00-20.00); Blood Urea Nitrogen 26.7 mg/dL (9.0-27.0); Carbon Dioxide 22.3 mmol/L (20.0-27.5); Non-African American GFR(CKD) 95.1 (60.0-200.0); Phosphorus 4.4 mg/dL (2.4-5.1); Potassium 4.3 mmol/L (3.5-5.5)
== END | disposition home or self-care (01) ==
LOC: LABWHC1 15:27
PROVIDERS: ATTEND Internal Medicine
DX: I50.9 Heart failure, unspecified (principal); R06.02 Shortness of breath
CPT/HCPCS: 36415; 80069; 83880; 85025

== ENCOUNTER → 2021-12-04 | Outpatient (CLI) | payer BC ==
[2021-12-04 16:21] LABS: HCT 32.2 % (39.6-50.0); HGB 8.4 g/dL (13.0-17.0); MCH 18.1 pg (27.0-32.0); MCHC 26.1 g/dL (32.0-37.0); MCV 69.4 fL (80.0-97.0); Mean Platelet Volume 9.2 fL (9.5-12.2); NRBC Per 100 WBC 0 /100 WBCS (0.0-0.0); Platelet Count 508 X 10*3/uL (140-440); RBC 4.64 X 10*6/uL (4.40-5.60); RDW 20.4 % (11.5-14.5); WBC 8.34 X 10*3/uL (4.50-10.00)
[2021-12-04 16:26] LABS: African American GFR (CKD) 116.4 (60.0-200.0); Anion Gap 9.2 mmol/L (10.00-18.00); Blood Urea Nitrogen 16.9 mg/dL (9.0-27.0); Carbon Dioxide 23.8 mmol/L (20.0-27.5); Non-African American GFR(CKD) 100.4 (60.0-200.0); Potassium 4.4 mmol/L (3.5-5.5)
[2021-12-05 13:08] LABS: Coronavirus SARS CoV-2 Not Detected (Not Detected)
== END | disposition home or self-care (01) ==
LOC: LABPAT 09:27
PROVIDERS: ATTEND Internal Medicine
DX: Z01.812 Encounter for preprocedural laboratory examination (principal); Z20.822 Contact with and (suspected) exposure to COVID-19; R07.2 Precordial pain
CPT/HCPCS: 80051; 82565; 84520; 85027; U0003; U0005

== ENCOUNTER 2021-12-07 07:43 | Day surgery (SDC) | payer BC ==
[2021-12-03 12:13] VITALS: BMI 25.8
[~2021-12-07 07:43] MED LIST changes: +ALPRAZolam 0.25 MG TAB PO PRN; +ALPRAZolam 0.5 MG TAB PO PRN; +ASPIRIN 325 MG TAB PO STA; +ATORVASTATIN 80 MG TAB PO STA; +HEPARIN SODIUM,PORCINE 10,000 UNIT in SODIUM CHLORIDE 0.9% 1,000 ML IRRIGATION PRN; +HEPARIN SODIUM,PORCINE 2,500 UNIT in SODIUM CHLORIDE 0.9% 250 ML IRRIGATION PRN; +NITROGLYCERIN SL TABS 0.4 MG TAB SUBLINGUAL PRN; -SODIUM CHLORIDE 0.9% 1,000 ML in EMPTY BAG 1 BAG IV ONE; +SODIUM CHLORIDE 0.9% 1,000 ML in EMPTY BAG 1 BAG IV SCH
[2021-12-07] MEDS ORDERED: SODIUM CHLORIDE 0.9% 1,000 ML IV ONE (08:02)
[2021-12-07 08:06] VITALS: RESP 16; TEMP 98.1
[2021-12-07] MEDS ORDERED: fentaNYL (PF) 50 MCG/ML 2 ML AMP ONE (09:17)
[2021-12-07] MEDS ORDERED: LIDOCAINE 1% INJ 10MG/ML (20 ML MDV) ONE (09:17)
[2021-12-07] MEDS ORDERED: MIDAZOLAM 2 MG/2 ML VIAL IV ONE (09:28)
[2021-12-07] MEDS ORDERED: fentaNYL (PF) 50 MCG/ML 2 ML AMP IV ONE (09:30)
[2021-12-07] MEDS ORDERED: LIDOCAINE 1% INJ 10MG/ML (20 ML MDV) SQ ONE (09:31)
[2021-12-07] MEDS ORDERED: IOPAMIDOL-370 125ML BTL INJ ONE (09:55)
[2021-12-07] MEDS ORDERED: IOPAMIDOL-370 100ML BTL INJ ONE (10:16)
[2021-12-07] MEDS ORDERED: ACETAMINOPHEN TAB 325 MG TAB ONE (12:12)
[2021-12-07 17:19] VITALS: BP 125/60; PULSE 72
--- NOTE | 2021-12-07 21:59 | P.CARDCATH ---
Description of Procedure: PROCEDURES PERFORMED: Left heart catheterization, bilateral coronary angiography, STOCKTNO, JAYSON and SVG angiography INDICATION: Abnormal stress test, chest pain concerning for angina HISTORY: Patient is a pleasant 61 year old male with history of prior tobacco abuse, CAD s/p 3 vessel CABG with SVG to left PLV, STOCKTON to OM, JAYSON to LAD in 2019. More recently he has been having chest pain with minimal exertion which appeared similar to his prior angina. Additionally he had a stress test which showed small sized reversible ischemia of the basal inferoseptal wall. Therefore heart catheterization was recommended. CONSENT:I have discussed the risks, benefits and alternative therapies for the above-mentioned procedure and for both sedation/analgesia as well as necessary blood product administration, if indicated, as they pertain to this patient. The patient has indicated understanding and acceptance of the risks and procedures discussed. PROCEDURE: After the risks, benefits and alternatives of the above mentioned procedure explained in detail with the patient, informed consent was obtained. Patient was taken to the catheterization lab and prepped and draped in usual fashion. 1% lidocaine was used to anesthetize the left femoral artery. A 6- [place] sheath was placed in the left femoral artery using modified Seldinger technique and ultrasound guidance. Left coronary angiography was performed with a 6-[place] JL 4.0 catheter and right coronary angiography was performed with a 6-[place] JR4 catheter in various views. The FR4 catheter was inserted into the left ventricle and pressure measurements were obtained. SVG to left PLV, STOCKTON to OM and JAYSON to LAD angiography was performed with the FR4 catheter. A right femoral angiogram was performed which showed adequate anatomy however given extensive calcification and previous PAD with intervention, the sheath was left in place for manual pull. The patient tolerated the procedure well. Patient was transported back to the post catheterization holding area in stable condition. Conscious Sedation: Patient was monitored under the direct supervision of vision of myself for conscious sedation using Versed and fentanyl for a total duration of 45 minutes HEMODYNAMICS: Ao: 142/78 LV: 141/5, LVEDP 18mmHg SELECTIVE CORONARY ARTERIOGRAPHY: LEFT MAIN: The left main is a large caliber vessel which bifurcates into the LAD and circumflex. There is diffuse 50% left main stenosis. LEFT ANTERIOR DESCENDING CORONARY ARTERY: LAD is a large caliber vessel which w raps around to the apex. There is proximal LAD 90% stenosis followed by a mid diffuse mid LAD 50-70% stenosis. There is a small caliber diagonal 1 branch with mild diffuse disease. LEFT CIRCUMFLEX CORONARY ARTERY: Left circumflex is a moderate caliber vessel with diffuse disease. There is extensive proximal 90% stenosis involving a moderate caliber "high" OM1. More distal to OM1 there is a 90% stenosis and then 2 very small caliber OM branches with mild diffuse disease. There is competitive flow to dominant distal circumflex which gives off a more distal OM4, a left PLV and a left PDA. RIGHT CORONARY ARTERY: The right coronary artery is a very small caliber vessel which gives off an acute marginal branch and is nondominant. There is a proximal 100% stenosis with right to right collaterals. SVG to left PLV: The SVG is widely patent. There is backfiling to what appears to be dual PDA with PDA 1 having a proximal 90% stenosis. STOCKTON to OM1: widely patent JAYSON to LAD: widely patent FINAL IMPRESSION: 1. [place] CAD as described above with left main 50% stenosis, proximal LAD 90% stenosis, mid LAD 50-70% stenosis, 90% dominant proximal circumflex stenosis, proximal PDA 90% stenosis 2. Patent SVG to left PLV, STOCKTON to OM1 and JAYSON to LAD. 3. Mildly elevated left sided filling pressures PLAN: 1. Aggressive risk factor modification per most recent ACC/AHA guidelines. 2. Patient may be having angina from distal small vessel disease including proximal left PDA 90% stenosis which matches stress testing abnormalities or less likely unprotected small caliber diagonal or small caliber OM2, OM3 however all 3 grafts are patent. Would attempt to optimize medical therapy and increase Imdur to 60mg daily and monitore response. If intervention considered would recommend comparison to old films to evaluate for change in distal small vessel disease.
== END 2021-12-07 16:55 | disposition home or self-care (01) ==
LOC: CATHCVL 07:43
PROVIDERS: ATTEND Internal Medicine
DX: I25.10 Atherosclerotic heart disease of native coronary artery without angina pectoris (principal); I25.110 Atherosclerotic heart disease of native coronary artery with unstable angina pectoris; I25.84 Coronary atherosclerosis due to calcified coronary lesion; I25.82 Chronic total occlusion of coronary artery; I10 Essential (primary) hypertension; E78.5 Hyperlipidemia, unspecified; I65.23 Occlusion and stenosis of bilateral carotid arteries; Z87.891 Personal history of nicotine dependence; R06.01 Orthopnea; I77.2 Rupture of artery; Z95.5 Presence of coronary angioplasty implant and graft; Z95.1 Presence of aortocoronary bypass graft; I73.9 Peripheral vascular disease, unspecified; Z82.49 Family history of ischemic heart disease and other diseases of the circulatory system; Z79.02 Long term (current) use of antithrombotics/antiplatelets; Z79.82 Long term (current) use of aspirin; Z79.51 Long term (current) use of inhaled steroids; Z79.899 Other long term (current) drug therapy
CPT/HCPCS: 93459; 76937; C1894; C1769 ×2; J2250; J2001; J3010; Q9967 ×2

== ENCOUNTER 2022-04-15 07:20 | Day surgery (SDC) | payer BC ==
[2022-04-14 12:48] VITALS: BMI 27.2
[~2022-04-15 07:20] MED LIST changes: +ASPIRIN 325 MG TAB PO PRN; -ASPIRIN 325 MG TAB PO STA; -ATORVASTATIN 80 MG TAB PO STA; -NITROGLYCERIN SL TABS 0.4 MG TAB SUBLINGUAL PRN; +SODIUM CHLORIDE 0.9% 1,000 ML in EMPTY BAG 1 BAG IV ONE; -SODIUM CHLORIDE 0.9% 1,000 ML in EMPTY BAG 1 BAG IV SCH; +ZOLPIDEM 5 MG TAB PO PRN
[2022-04-15 07:47] VITALS: RESP 18; TEMP 98.7
[2022-04-15 08:01] LABS: African American GFR (CKD) >90 (>60 ml/min/1.73 sqM); Anion Gap 7 mmol/L; Blood Urea Nitrogen 18 mg/dL (9-20); Calcium 8.6 mg/dL (8.4-10.2); Carbon Dioxide 24 mmol/L (22-30); Chloride 108 mmol/L (98-107); Glucose 113 mg/dL (74-99); Non-African American GFR(CKD) >90 (>60 ml/min/1.73 sqM); Potassium 4.9 mmol/L (3.5-5.1); Sodium 139 mmol/L (137-145)
[2022-04-15 08:12] LABS: Anisocytosis Marked; Basophils # (A) 0.1 k/uL (0-0.2); Basophils % (A) 1 %; Eosinophils # (A) 0.1 k/uL (0-0.7); Eosinophils % (A) 2 %; HCT 43.3 % (39.0-53.0); HGB 12.9 gm/dL (13.0-17.5); Hypochromasia Marked; Lymphocytes # (A) 1.7 k/uL (1.0-4.8); Lymphocytes % (A) 21 %; MCH 25.6 pg (25.0-35.0); MCHC 29.8 g/dL (31.0-37.0); MCV 86.1 fL (80.0-100.0); Mean Platelet Volume 7.2; Microcytosis Moderate; Monocytes # (A) 0.6 k/uL (0-1.0); Monocytes % (A) 7 %; Neutrophils # (A) 5.4 k/uL (1.3-7.7); Neutrophils % (A) 68 %; Platelet Count 351 k/uL (150-450); RBC 5.03 m/uL (4.30-5.90); RDW 26.8 % (11.5-15.5); WBC 7.9 k/uL (3.8-10.6)
[2022-04-15] MEDS ORDERED: fentaNYL (PF) 50 MCG/ML 2 ML AMP ONE (10:06)
[2022-04-15] MEDS ORDERED: fentaNYL (PF) 50 MCG/ML 2 ML AMP IV ONE (10:10)
[2022-04-15] MEDS ORDERED: MIDAZOLAM 2 MG/2 ML VIAL IV ONE (10:10)
[2022-04-15] MEDS ORDERED: LIDOCAINE 1% PF 10 MG/ML (5 ML AMP) SQ ONE (10:13)
[2022-04-15] MEDS ORDERED: IOPAMIDOL-250 100ML BTL INTRAARTER ONE (10:35)
--- NOTE | 2022-04-15 10:52 | P.OP ---
Date of Procedure: 04/15/22 Description of Procedure: Preoperative diagnosis: Claudication, right femoral iatrogenic fistula Postop diagnosis: Right SFA in-stent stenosis 60%, no evidence of fistula, one- vessel runoff PT to the foot Procedure: Aortogram with bilateral lower extremity runoffs via left femoral artery access under ultrasound guidance Surgeon: Ashwini Anesthesia: Moderate sedation times 24 minutes Estimated blood loss: 5 mL Complications: None Condition: Stable Findings: Aorta: Patent, minimal atherosclerotic disease without any stenosis Iliacs: Patent bilaterally without any significant stenosis Femorals: Right common femoral artery, profundus femoris and superficial femoral artery are patent no evidence of fistula noted. No filling of the venous system at all within 10 seconds. There is some stenosis noted in the stent on the right SFA. Left common femoral, profundus and SFA are patent with minimal at herosclerotic disease and stenosis. Popliteal: Bilateral popliteal arteries are patent without any severe stenosis Tibials: Bilateral anterior tibial arteries are occluded just after takeoff. One-vessel runoff bilaterally being the posterior tibial artery Operative narrative: After written informed consent was obtained the patient all risks benefits competitions were described the patient is brought to the Supervisor Home Energy Consultant and laid in a supine position. The area of the left groin was prepped and draped in the usual sterile fashion. Local anesthesia with moderate sedation was performed with continuous pulse ox monitoring and EKG monitoring. Utilizing ultrasound the left femoral artery was visualized and shown to be patent without any significant plaque. Utilizing a multipurpose needle under ultrasound guidance the artery was accessed. Guidewire was placed followed by 5-Greek sheath. 035 Glidewire was then placed into the aorta followed by pigtail catheter. Angiogram was then obtained of the aorta. Catheter was then placed at the bifurcation and lower extremity runoffs were obtained. Once completed all guidewires, catheters and sheaths were removed and pressure was placed for hemostasis. Patient tolerated procedure well was sent to PACU for recovery Plan - Discharge Summary Discharge Rx Participant: No New Discharge Prescriptions: No Action Albuterol Inhaler [Ventolin Hfa Inhaler] 1 puff INHALATION QID Atorvastatin Calcium [Lipitor] 80 mg PO HS Ranolazine [Ranolazine ER] 1,000 mg PO BID Ferrous Sulfate [Feosol] 325 mg PO BID Clopidogrel [Plavix] 75 mg PO DAILY Fluticasone/Vilanterol [Breo Ellipta 200-25 Mcg Inhaler] 1 puff INHALATION RT-DAILY PRN PRN Reason: Shortness Of Breath Aspirin [Adult Low Dose Aspirin EC] 81 mg PO DAILY #30 tab Nitroglycerin Sl Tabs [Nitrostat] 0.4 mg SUBLINGUAL Q5M PRN PRN Reason: Chest Pain Isosorbide Mononitrate ER [Imdur] 60 mg PO DAILY Metoprolol Tartrate [Lopressor] 75 mg PO BID Discharge Medication List Albuterol Inhaler [Ventolin Hfa Inhaler] 1 puff INHALATION QID 05/17/21 [Histo ry] Atorvastatin Calcium [Lipitor] 80 mg PO HS 05/17/21 [History] Fluticasone/Vilanterol [Breo Ellipta 200-25 Mcg Inhaler] 1 puff INHALATION RT- DAILY PRN 07/01/21 [History] Aspirin [Adult Low Dose Aspirin EC] 81 mg PO DAILY #30 tab 07/08/21 [Rx] Nitroglycerin Sl Tabs [Nitrostat] 0.4 mg SUBLINGUAL Q5M PRN 12/03/21 [History] Clopidogrel [Plavix] 75 mg PO DAILY 04/14/22 [History] Ferrous Sulfate [Feosol] 325 mg PO BID 04/14/22 [History] Isosorbide Mononitrate ER [Imdur] 60 mg PO DAILY 04/14/22 [History] Metoprolol Tartrate [Lopressor] 75 mg PO BID 04/14/22 [History] Ranolazine [Ranolazine ER] 1,000 mg PO BID 04/14/22 [History]
[2022-04-15 15:32] VITALS: BP 114/62; PULSE 66
--- NOTE | 2022-04-18 12:46 | IR ---
Fluoroscopy HISTORY: Peripheral vascular occlusive disease 2.8 minutes fluoroscopy time supplied to the referring clinician. 244 intraoperative C-arm images do cument the procedure. See dictated report from vascular surgery.
== END 2022-04-15 15:51 | disposition home or self-care (01) ==
LOC: CATHCVL 07:20
PROVIDERS: ATTEND Surgery
DX: T82.856A Stenosis of peripheral vascular stent, initial encounter (principal); I70.0 Atherosclerosis of aorta; I10 Essential (primary) hypertension; I65.29 Occlusion and stenosis of unspecified carotid artery; J44.9 Chronic obstructive pulmonary disease, unspecified; K21.9 Gastro-esophageal reflux disease without esophagitis; H91.90 Unspecified hearing loss, unspecified ear; E78.5 Hyperlipidemia, unspecified; Z79.899 Other long term (current) drug therapy; Z79.82 Long term (current) use of aspirin; Z79.02 Long term (current) use of antithrombotics/antiplatelets; Z98.890 Other specified postprocedural states; Z80.42 Family history of malignant neoplasm of prostate
CPT/HCPCS: 36200; 75716; 76937; 80048; 84443; 85025; C1769 ×4; C1894; J2250; J2001; J3010; Q9966; 75625

== ENCOUNTER → 2022-05-07 | Outpatient (CLI) | payer BC ==
[2022-05-07 11:59] LABS: LDL Cholesterol,Calculated 134.6 mg/dL (0.0-131.0); VLDL Calculation 15.88 mg/dL (5.00-40.00)
[2022-05-07 12:00] LABS: ALT 34 U/L (10-49); AST 25 U/L (14-35)
== END | disposition home or self-care (01) ==
LOC: LABWHC1 08:09
PROVIDERS: ATTEND Internal Medicine
DX: E78.2 Mixed hyperlipidemia (principal)
CPT/HCPCS: 36415; 80061; 84450; 84460

== ENCOUNTER → 2022-11-15 | Outpatient (CLI) | payer BC ==
[2022-11-17 05:07] LABS: ALT 44 U/L (10-49); AST 24 U/L (14-35); Chol/HDL Ratio 3.04 Ratio; LDL Cholesterol,Calculated 72.1 mg/dL (0.0-131.0); VLDL Calculation 18.46 mg/dL (5.00-40.00)
== END | disposition home or self-care (01) ==
LOC: LABWHC1 07:48
PROVIDERS: ATTEND Internal Medicine
DX: E78.2 Mixed hyperlipidemia (principal)
CPT/HCPCS: 36415; 80061; 84450; 84460

== ENCOUNTER → 2023-05-08 | Outpatient (CLI) | payer BC ==
[2023-05-08 16:09] LABS: Chol/HDL Ratio 2.64 Ratio; LDL Cholesterol,Calculated 58.1 mg/dL (0.0-131.0); VLDL Calculation 12.74 mg/dL (5.00-40.00)
[2023-05-08 16:30] LABS: ALT 24 U/L (10-49); AST 27 U/L (14-35)
== END | disposition home or self-care (01) ==
LOC: LABWHC1 09:20
PROVIDERS: ATTEND Internal Medicine
DX: E78.2 Mixed hyperlipidemia (principal)
CPT/HCPCS: 36415; 80061; 84450; 84460

== ENCOUNTER → 2024-05-10 | Outpatient (CLI) | payer BC ==
[2024-05-10 10:19] LABS: HCT 47.9 % (39.6-50.0); HGB 15.1 g/dL (13.0-17.0); MCH 29.5 pg (27.0-32.0); MCHC 31.5 g/dL (32.0-37.0); MCV 93.7 FL (80.0-97.0); Mean Platelet Volume 9.6 FL (9.5-12.2); NRBC Per 100 WBC 0 X 10*3/uL (0.00-0.01); Platelet Count 249 X 10*3/uL (140-440); RBC 5.11 X 10*6/uL (4.40-5.60); WBC 9.15 X 10*3/uL (4.50-10.00)
[2024-05-10 15:44] LABS: % Iron Saturation 25.21 (15.00-50.00); Iron 91 UG/DL (65-175); LDL Cholesterol,Calculated 57.2 mg/dL (0.0-131.0); Total Iron Binding Capacity 361 UG/DL (228-460); VLDL Calculation 11.22 mg/dL (5.00-40.00)
== END | disposition home or self-care (01) ==
LOC: LABWHC1 07:23
PROVIDERS: ATTEND Family Medicine
DX: E78.2 Mixed hyperlipidemia (principal); I10 Essential (primary) hypertension
CPT/HCPCS: 36415; 80061; 83540; 83550; 85027

== ENCOUNTER → 2024-10-08 | Outpatient (CLI) | payer BC ==
[2024-10-08 14:49] VITALS: BP 128/70; PULSE 72; RESP 16; TEMP 98.2
--- NOTE | 2024-10-08 15:53 | P.SLEEP ---
History of Present Illness H&P Date: 10/08/24 This is a 64-year-old male patient who is coming in for further guidance regarding his obstructive sleep apnea treatment. The patient was diagnosed having NIEVES based on a home sleep study that was ordered through his primary care physician. No official report is not available to me at this point. Nevertheless, the patient tells me that he was diagnosed having severe NIEVES with an AHI of 67.3 and the patient was given an APAP machine, ResMed 10, set at a pressure of 5/15 cm of water. He has exhausted various forms of masks including nasal and fullface masks and currently the patient utilizing the AirFit F40. The patient has been very compliant over the past few months. Initially so tremendous response in his level of alertness and sleep quality. More recently, he still feeling tired and fatigued. His current [place] score is at 17. He does not fall asleep while driving. He goes to bed around 10 PM and wakes up 6 AM in the morning. His snoring is completely recovered. He does not sleep in the same bedroom with his . No witnessed apneas. No grinding. No restlessness in lower extremities. No sleep paralysis. No hallucinations. No cataplexy. I checked the patient's compliancy data from his machine and the patient has been extremely compliant over the past 30 days, the patient utilized the machine every night and he is averaging more than 4 hours 100% of the time. Has been averaging around 7.9 hours per night and his 95th percentile pressure is at 14.9 and his AHI is down to 1.4 while being on CPAP therapy and the leak is in the order of 11 L/min. The patient has also monitored his pulse ox during sleep and he has encountered minimal amount of desaturation with the oxygen dropping below 88% for less than 2 minutes while being on CPAP therapy. He is known to have comorbidities including COPD and the patient a chronic smoker. His room air pulse ox is in order of 95% and is currently on Breztri. He has coronary artery disease, previous bypass surgery, and peripheral vascular disease. He reports to have gained around 10 to 15 pounds over the past 1 year. No alcoholism. No substance abuse. He smokes around half pack of cigarettes on a daily basis. Review of Systems Constitutional: Reports daytime sleepiness, Reports fatigue, Reports weight gain Eyes: denies as per HPI, denies blurred vision, denies bulging eye, denies decreased vision, denies diplopia, denies discharge, denies dry eye, denies irritation, denies itching, denies pain, denies photophobia, denies loss of peripheral vision, denies loss of vision, denies tunnel vision/blind spots Ears: deny: decreased hearing, ear discharge, earache, tinnitus Ears, nose, mouth and throat: Reports as per HPI Breasts: absent: as per HPI, gynecomastia Cardiovascular: Reports as per HPI Respiratory: Reports sleep apnea Gastrointestinal: Reports as per HPI Genitourinary: Reports as per HPI Musculoskeletal: Reports as per HPI Musculoskeletal: absent: ankle pain, ankle stiffness, ankle swelling, as per HPI, elbow pain, elbow stiffness, elbow swelling, foot pain, foot stiffness, foot swelling, hand pain, hand stiffness, hand swelling, hip pain, hip stiffness, hip swelling, knee pain, knee stiffness, knee swelling, shoulder pain, shoulder stiffness, shoulder swelling, wrist pain, wrist stiffness, wrist swelling Integumentary: Reports as per HPI Neurological: Reports as per HPI Psychiatric: Reports as per HPI Endocrine: Reports as per HPI, Reports fatigue Allergic/Immunologic: Reports allergic rhinitis Past Medical History Past Medical History: Coronary Artery Disease (CAD), Chest Pain / Angina, COPD, Hearing Disorder / Deafness, Hyperlipidemia, Hypertension, Vascular Disorder Additional Past Medical History / Comment(s): Low Iron. Wears hearing aids. Peripheral vascular disorder bilateral legs, claudication, edema right leg, bilateral internal carotid artery stenosis 50-79%, recent chest pain that is increasing in frequency. History of Any Multi-Drug Resistant Organisms: None Reported Past Surgical History: Coronary Bypass/CABG, Heart Catheterization, Heart Catheterization With Stent Additional Past Surgical History / Comment(s): Heart stents X2 15-18 years ago, CABG 05/20/21-triple bypass, skin tag removed from buttocks, hemorrhoidectomy, abd. aortogram & stent right SFA 06-29-21, angioplasty & stenting to right leg 06/29/21. Angioplasty to left leg 07/07/21, colonoscopy and EGD. Past Anesthesia/Blood Transfusion Reactions: Previous Problems w/ Anesthesia Additional Past Anesthesia/Blood Transfusion Reaction / Comment(s): "Hard time coming out of it." Date of Last Stent Placement:: 1999 Past Psychological History: No Psychological Hx Reported Smoking Status: Former smoker Past Alcohol Use History: None Reported Additional Past Alcohol Use History / Comment(s): Started smoking around 1971 was 1-1.5 ppd, quit April 2021. Past Drug Use History: None Reported - Past Family History Mother Family Medical History: No Reported History, Hypertension, Liver Disease Father Family Medical History: Cancer, Coronary Artery Disease (CAD) Additional Family Medical History / Comment(s): Prostate cancer., angina, snoring, during sleep Medications and Allergies Home Medications Medication Instructions Recorded Confirmed Type Albuterol Inhaler [Ventolin Hfa 1 puff INHALATION QID 05/17/21 10/08/24 History Inhaler] Atorvastatin Calcium [Lipitor] 80 mg PO HS 05/17/21 04/15/22 History Fluticasone/Vilanterol [Breo 1 puff INHALATION RT-DAILY PRN 07/01/21 10/08/24 History Ellipta 200-25 Mcg Inhaler] Aspirin [Adult Low Dose Aspirin EC] 81 mg PO DAILY #30 tab 07/08/21 10/08/24 Rx Nitroglycerin Sl Tabs [Nitrostat] 0.4 mg SUBLINGUAL Q5M PRN 12/03/21 04/14/22 History Clopidogrel [Plavix] 75 mg PO DAILY 04/14/22 04/15/22 History Ferrous Sulfate [Feosol] 325 mg PO BID 04/14/22 04/14/22 History Isosorbide Mononitrate ER [Imdur] 60 mg PO DAILY 04/14/22 10/08/24 History Metoprolol Tartrate [Lopressor] 75 mg PO BID 04/14/22 10/08/24 History Ranolazine [Ranolazine ER] 1,000 mg PO BID 04/14/22 10/08/24 History Budesonide/Glycopyr/Formoterol See Rx Instructions .ROUTE .COMPLEX 10/08/24 10/08/24 History [Breztri Aerosphere Inhaler] Allergies Allergy/AdvReac Type Severity Reaction Status Date / Time moxifloxacin HCl Allergy Anaphylaxis Verified 04/15/22 07:29 [From Avelox] Physical Exam Vitals: Vital Signs Temp Pulse Resp BP Pulse Ox 10/08/24 14:49 98.2 F 72 16 128/70 95 Intake and Output 1210/08/24 10/08/24 06:59 14:59 22:59 Other: Weight 86.183 kg The patient appeared well nourished and normally developed. Vital signs as documented. Head exam is unremarkable. No scleral icterus or corneal arcus noted. Neck is without jugular venous distension, thyromegaly, or carotid bruits. Carotid upstrokes are brisk bilaterally. Mallampati class IV Lungs are clear to auscultation and percussion. Thoracotomy scar over the anterior chest area. Cardiac exam reveals the PMI to be normally sized and situated. Rhythm is regular. First and second heart sounds normal. No murmurs, rubs or gallops. Abdominal exam reveals normal bowel sounds, no masses, no organomegaly and no aortic enlargement. Extremities are nonedematous and both femoral and pedal pulses are normal. Examination of the skin revealed no evidence of significant rashes, suspicious appearing nevi or other concerning lesions. Neurologically, the patient is awake and alert and the patient does not have any focal neurological deficit. Cranial nerves are essentially intact. Assessment and Plan Plan: Sleep obstructive sleep apnea, severe with an AHI of 67.3, currently on APAP therapy at a pressure of 5/15 cm of water and the patient utilizing an AirFit F40 fullface mask Residual hypersomnia despite being compliant and effectively treated with CPAP t herapy. In fact, the patient's AHI is down to 1.4 while being on CPAP therapy. Coronary artery disease with previous bypass surgery COPD Hyperlipidemia Peripheral vascular disease with previous vascular stents in the lower extremities History of chronic polyps/hemorrhoids. Bilateral internal carotid artery stenosis in the order of 50 to 79% Plan I had a lengthy discussion with the patient regarding his obstructive sleep apnea I checked the patient CPAP machine which is currently on APAP mode in the same setting will be maintained Will keep the same mask interface of AirFit F40 No need for oxygen supplementation along with CPAP therapy as his oxygen saturations are minimal In regards to his daytime hypersomnia and fatigue, the patient will need daytime stimulation. He is a current [place] score is at 17. He will benefit from modafinil 200 mg to be started once a day and taken at 9 AM in the morning Maintain good sleep hygiene measures Maintain regular sleep schedule Treat comorbidities Will continue to follow. Sleep Note - Sleep Data ESS Total: 17 - Sleep Note Sleep Note: Temperature: 98.2 F Pulse Rate: 72 Respiratory Rate: 16 Blood Pressure: 128/70 SpO2: 95 Height: 5 ft 8 in Weight: 86.183 kg BMI: Neck Circumference: 16
== END ==
LOC: 3 N SLEEP 13:51
PROVIDERS: ATTEND Internal Medicine Critical Care Medicine
DX: G47.33 Obstructive sleep apnea (adult) (pediatric) (principal); I25.810 Atherosclerosis of coronary artery bypass graft(s) without angina pectoris; I10 Essential (primary) hypertension; I73.9 Peripheral vascular disease, unspecified; E78.5 Hyperlipidemia, unspecified; J44.9 Chronic obstructive pulmonary disease, unspecified; Z87.19 Personal history of other diseases of the digestive system; Z95.5 Presence of coronary angioplasty implant and graft; Z87.891 Personal history of nicotine dependence; Z79.51 Long term (current) use of inhaled steroids; Z79.899 Other long term (current) drug therapy; Z79.02 Long term (current) use of antithrombotics/antiplatelets; Z88.1 Allergy status to other antibiotic agents
CPT/HCPCS: 99211